=== PATIENT | female | born 1945 | race Caucasian/White ===

== ENCOUNTER 2021-06-17 13:07 | Inpatient (IN) | payer MEDICARE, MEDICAID, SELFPAY ==
[2021-06-17 13:21] VITALS: BP 166/84; PULSE 96
[2021-06-17 13:25] VITALS: BP 167/77; PULSE 75; TEMP 36.4; O2SAT 100
[2021-06-17 13:26] LABS: Glucose, Whole Blood 84 mg/dL (60-115)
[2021-06-17 13:27] VITALS: BP 167/77; PULSE 72; RESP 18; TEMP 36.4; O2SAT 100; BMI 21.3
[2021-06-17 14:36] LABS: MANUAL DIFF FLAG NO
--- NOTE | 2021-06-17 14:40 | ED_ITS ---
HPI - General Adult General Chief complaint: Altered Mental Status Stated complaint: ams Time Seen by Provider: 06/17/21 13:43 Source: patient Mode of arrival: ambulatory Limitations: no limitations History of Present Illness HPI narrative: 75-YEAR-OLD FEMALE SUPPOSEDLY FOUND WANDERING ON THE STREET AND BROUGHT BY EMS FOR EVALUATION. EMS STATES PATIENT FINGERSTICK WAS 54. UPON TRIAGE FINGERSTICK WITH 85. PATIENT ALSO DENIES DIABETES. PATIENT LIVES ALONE. PATIENT KNOWS NAME PLACE MATTRESS. 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 Patient states she was driving around in her car and was brought to a place by her friend . She states someone saw her walking on the street and then call ambulance. Patient knows her address name and date. Related Data Home Medications Medication Instructions Recorded Confirmed No Known Home Meds 06/17/21 06/17/21 Allergies Allergy/AdvReac Type Severity Reaction Status Date / Time No Known Allergies Allergy Verified 02/24/20 14:12 Review of Systems Review of Systems: CONFUSION? Yes all other systems are reviewed and are negative [facility] Past Medical History Medical History (Updated 06/17/21 @ 19:27 by MONAE Silver) High cholesterol Hypertension Hypothyroidism [facility] Surgical History History of appendectomy History of tonsillectomy Family History Family History Father No problems noted. Mother No problems noted. Social History Social History Alcohol intake: never Advance Directives: No Advance Directives Information Provided: No Physical Exam ED Vital Signs: Vital Signs - 24 hr 06/17/21 13:25 06/17/21 13:27 06/17/21 18:27 Temperature 97.6 F 97.6 F 98.0 F Pulse Rate 75 72 67 Respiratory Rate 18 16 Blood Pressure 167/77 H 167/77 H 179/86 H Pulse Oximetry 100 100 100 BMI result Body Mass Index 21.3 Const General: cooperative, healthy appearing, comfortable, no acute distress, well developed, alert and awake [facility] Head: Yes normal to inspection, Yes No palpable skull fracture present, Yes normocephalic, Yes atraumatic and No abrasion Eyes General: appearance normal, both eyes and all related structures Neck Neck: Yes normal visual inspection, Yes full ROM, Yes no lymphadenopathy, Yes no meningeal signs, Yes trachea midline, Yes supple, No anterior neck swelling and No tender Chest Chest palpation & inspection: normal inspection of the chest and normal palpation of entire chest wall Resp Effort & Inspection: normal respiratory effort and able to speak in complete sentences Auscultation: clear to auscultation bilaterally Cardio Jugular venous distension: no JVD Heart sounds: S1 normal heart sound present and S2 normal heart sound present GI Inspection: Yes normal to inspection and No abdominal wall ecchymosis Palpation (GI): Soft to palpation, not firm, nontender, no guarding and not rigid General: No CVA tenderness and Yes no CVA tenderness Back/Spine/Pelvis Back: no CVA tenderness, No CVA tenderness and No back tenderness Skin General skin exam: no rashes or lesions noted and elasticity normal Neuro Other: NEGATIVE FACIAL DROOP. NEGATIVE SLURRED SPEECH. NEGATIVE PRONATOR DRIFT. CESAOP-CT-FADV AND RAPID HAND MOVEMENT INTACT. NEGATIVE ROMBERG NORMAL GAIT. General: no meningeal signs Extrem Other: LOWER EXTREMITY NEGATIVE FOR SWELLING, PITTING EDEMA, CALF TENDERNESS General: Yes normal to inspection and Yes full ROM Psych Appearance: grossly normal, well kempt and not disheveled Course Course Course Narrative: PATIENT ALERT ORIENTED X3 PRESENT. PATIENT LIVES ALONE WITH NO FAMILY MEMBERS. WILL CHECK FOR URINE, REPEAT FINGERSTICK, ON LABS. Reevaluation(s) Reevaluation #1: Patient UA shows UTI. COVID negative. Ammonia normal. Patient has no white blood cell count but due to patient having hypoglycemic event by ER will speak to hospitalist for possible admission. Time: 16:53 Reevaluation #2: Spoke with with cousin Anuja Varma who states patient at baseline has dementia and lives alone has no family to take care of. She states patient does wonder often. She agrees patient should not be sent back by herself due to her not being able to care for herself. She states at baseline patient knows her name and address but does not know the year and president. Patient to be admitted for UTI and resolve hyperglycemia. Cousin Anuja states patient does not own a car and unlikely was with friend in her car. patient is known for wandering from elderly home. She states patient probably reliving old memories or UTI causing hallucinations. Time: 17:10 Reevaluation #3: While on D5 patient LR again became hypoglycemic while eating food with fingerstick of 63 and she ate food. D5 amp ordered. Patient given crackers and juice. Patient to be admitted for hypoglycemia. Time: 19:22 Medical Decision Making MDM Narrative Medical decision making narrative: UTI. Hyporglycemia Lab Data Result diagrams: 06/17/21 14:29 06/17/21 14:29 Labs: Lab Results 06/17/21 06/17/21 06/17/21 Range/Units 13:20 14:29 14:29 WBC 6.3 (4.8-10.8) X10*3/uL RBC 4.25 (4.20-5.50) X10*6/uL Hgb 13.0 (12.0-16.0) g/dl Hct 39.7 (37.0-47.0) % MCV 93.4 (80.0-98.0) fL MCH 30.6 (27.0-33.0) pg MCHC 32.7 (31.0-35.0) g/dl RDW 12.9 (11.0-16.0) % Plt Count 185 (160-400) X10*3/uL MPV 10.6 (9.4-12.3) fL Immature Gran % (Auto) (0.0-0.4) % Neut % (Auto) (45-73) % Lymph % (Auto) (20-40) % [place] % (Auto) (2-11) % Eos % (Auto) (0-4) % Baso % (Auto) (0-2) % Lymph # (Auto) (1.2-4.9) X10*3/uL [place] # (Auto) (0.1-1.2) X10*3/uL Eos # (Auto) (0.0-0.4) X10*3/uL Baso # (Auto) (0.0-0.2) X10*3/uL Abs Immat Gran (auto) (0.00-0.03) X10*3/uL Absolute Neuts (auto) (2.0-8.3) x10*3/uL Absolute Nucleated RBC 0.000 (0.0-0.012) X10*3/uL Nucleated RBC % (auto) 0.0 (0.0-0.2) /100WBC PT (9.9-13.0) SEC INR (0.9-1.1) APTT (24.1-38.0) SEC Sodium 142 (135-145) mmol/L Potassium 4.0 (3.3-5.1) mmol/L Chloride 107 (96-108) mmol/L Carbon Dioxide 26 (22-29) mmol/L Anion Gap 13 (12-20) BUN 23 H (9-16) mg/dL Creatinine 1.01 (0.5-1.4) mg/dL Estim Creat Clear Calc 43.6 Estimated GFR 53 POC Glucose 84 (60-115) mg/dL Random Glucose 91 (60-115) mg/dL Lactic Acid (0.5-2.0) mmol/L Calcium 9.4 (8.4-10.2) mg/dL Total Bilirubin 0.7 (0.0-1.0) mg/dL AST 21 (5-31) U/L ALT 17 (0-31) U/L Alkaline Phosphatase 79 (39-117) U/L Ammonia (13-55) umol/L Total Creatine Kinase 164 H (26-140) U/L Total Protein 6.6 (6.5-8.0) g/dL Albumin 4.0 (3.5-5.0) g/dL Urine Color Urine Appearance Urine pH (5.0-8.0) Ur Specific [place] (1.005-1.025) Urine Protein (NEG-TRACE) MG/DL Urine Glucose (UA) (NEG) MG/DL Urine Ketones (NEG) MG/DL Urine Blood (NEG) Urine Nitrite (NEG) Ur Leukocyte Esterase (NEG) Urine RBC (0) /HPF Urine WBC (0-4) /HPF Ur Squamous Epith Cells /LPF Urine Bacteria /LPF COVID-19 (RENU) (Negative) COVID-19 Clin Com 06/17/21 06/17/21 06/17/21 Range/Units 14:29 14:29 14:29 WBC 6.4 (4.8-10.8) X10*3/uL RBC 4.21 (4.20-5.50) X10*6/uL Hgb 12.9 (12.0-16.0) g/dl Hct 39.2 (37.0-47.0) % MCV 93.1 (80.0-98.0) fL MCH 30.6 (27.0-33.0) pg MCHC 32.9 (31.0-35.0) g/dl RDW 12.9 (11.0-16.0) % Plt Count 182 (160-400) X10*3/uL MPV 10.2 (9.4-12.3) fL Immature Gran % (Auto) 0.3 (0.0-0.4) % Neut % (Auto) 76.6 H (45-73) % Lymph % (Auto) 17.5 L (20-40) % [place] % (Auto) 5.0 (2-11) % Eos % (Auto) 0.3 (0-4) % Baso % (Auto) 0.3 (0-2) % Lymph # (Auto) 1.1 L (1.2-4.9) X10*3/uL [place] # (Auto) 0.3 (0.1-1.2) X10*3/uL Eos # (Auto) 0.0 (0.0-0.4) X10*3/uL Baso # (Auto) 0.0 (0.0-0.2) X10*3/uL Abs Immat Gran (auto) 0.02 (0.00-0.03) X10*3/uL Absolute Neuts (auto) 4.9 (2.0-8.3) x10*3/uL Absolute Nucleated RBC 0.000 (0.0-0.012) X10*3/uL Nucleated RBC % (auto) 0.0 (0.0-0.2) /100WBC PT 13.7 H (9.9-13.0) SEC INR 1.2 H (0.9-1.1) APTT 36.9 (24.1-38.0) SEC Sodium (135-145) mmol/L Potassium (3.3-5.1) mmol/L Chloride (96-108) mmol/L Carbon Dioxide (22-29) mmol/L Anion Gap (12-20) BUN (9-16) mg/dL Creatinine (0.5-1.4) mg/dL Estim Creat Clear Calc Estimated GFR POC Glucose (60-115) mg/dL Random Glucose (60-115) mg/dL Lactic Acid (0.5-2.0) mmol/L Calcium (8.4-10.2) mg/dL Total Bilirubin (0.0-1.0) mg/dL AST (5-31) U/L ALT (0-31) U/L Alkaline Phosphatase (39-117) U/L Ammonia (13-55) umol/L Total Creatine Kinase (26-140) U/L Total Protein (6.5-8.0) g/dL Albumin (3.5-5.0) g/dL Urine Color Urine Appearance Urine pH (5.0-8.0) Ur Specific [place] (1.005-1.025) Urine Protein (NEG-TRACE) MG/DL Urine Glucose (UA) (NEG) MG/DL Urine Ketones (NEG) MG/DL Urine Blood (NEG) Urine Nitrite (NEG) Ur Leukocyte Esterase (NEG) Urine RBC (0) /HPF Urine WBC (0-4) /HPF Ur Squamous Epith Cells /LPF Urine Bacteria /LPF COVID-19 (RENU) Negative (Negative) COVID-19 Clin Com See Note 06/17/21 06/17/21 06/17/21 Range/Units 14:29 15:12 16:06 WBC (4.8-10.8) X10*3/uL RBC (4.20-5.50) X10*6/uL Hgb (12.0-16.0) g/dl Hct (37.0-47.0) % MCV (80.0-98.0) fL MCH (27.0-33.0) pg MCHC (31.0-35.0) g/dl RDW (11.0-16.0) % Plt Count (160-400) X10*3/uL MPV (9.4-12.3) fL Immature Gran % (Auto) (0.0-0.4) % Neut % (Auto) (45-73) % Lymph % (Auto) (20-40) % [place] % (Auto) (2-11) % Eos % (Auto) (0-4) % Baso % (Auto) (0-2) % Lymph # (Auto) (1.2-4.9) X10*3/uL [place] # (Auto) (0.1-1.2) X10*3/uL Eos # (Auto) (0.0-0.4) X10*3/uL Baso # (Auto) (0.0-0.2) X10*3/uL Abs Immat Gran (auto) (0.00-0.03) X10*3/uL Absolute Neuts (auto) (2.0-8.3) x10*3/uL Absolute Nucleated RBC (0.0-0.012) X10*3/uL Nucleated RBC % (auto) (0.0-0.2) /100WBC PT (9.9-13.0) SEC INR (0.9-1.1) APTT (24.1-38.0) SEC Sodium (135-145) mmol/L Potassium (3.3-5.1) mmol/L Chloride (96-108) mmol/L Carbon Dioxide (22-29) mmol/L Anion Gap (12-20) BUN (9-16) mg/dL Creatinine (0.5-1.4) mg/dL Estim Creat Clear Calc Estimated GFR POC Glucose 65 (60-115) mg/dL Random Glucose (60-115) mg/dL Lactic Acid (0.5-2.0) mmol/L Calcium (8.4-10.2) mg/dL Total Bilirubin (0.0-1.0) mg/dL AST (5-31) U/L ALT (0-31) U/L Alkaline Phosphatase (39-117) U/L Ammonia 17 (13-55) umol/L Total Creatine Kinase (26-140) U/L Total Protein (6.5-8.0) g/dL Albumin (3.5-5.0) g/dL Urine Color YELLOW Urine Appearance HAZY Urine pH 6.0 (5.0-8.0) Ur Specific [place] 1.015 (1.005-1.025) Urine Protein NEG (NEG-TRACE) MG/DL Urine Glucose (UA) NEG (NEG) MG/DL Urine Ketones NEG (NEG) MG/DL Urine Blood TRACE (NEG) Urine Nitrite NEG (NEG) Ur Leukocyte Esterase 3+ H (NEG) Urine RBC 0-2 (0) /HPF Urine WBC 30-49 H (0-4) /HPF Ur Squamous Epith Cells 1+ /LPF Urine Bacteria 3+ /LPF COVID-19 (RENU) (Negative) COVID-19 Clin Com 06/17/21 Range/Units 17:48 WBC (4.8-10.8) X10*3/uL RBC (4.20-5.50) X10*6/uL Hgb (12.0-16.0) g/dl Hct (37.0-47.0) % MCV (80.0-98.0) fL MCH (27.0-33.0) pg MCHC (31.0-35.0) g/dl RDW (11.0-16.0) % Plt Count (160-400) X10*3/uL MPV (9.4-12.3) fL Immature Gran % (Auto) (0.0-0.4) % Neut % (Auto) (45-73) % Lymph % (Auto) (20-40) % [place] % (Auto) (2-11) % Eos % (Auto) (0-4) % Baso % (Auto) (0-2) % Lymph # (Auto) (1.2-4.9) X10*3/uL [place] # (Auto) (0.1-1.2) X10*3/uL Eos # (Auto) (0.0-0.4) X10*3/uL Baso # (Auto) (0.0-0.2) X10*3/uL Abs Immat Gran (auto) (0.00-0.03) X10*3/uL Absolute Neuts (auto) (2.0-8.3) x10*3/uL Absolute Nucleated RBC (0.0-0.012) X10*3/uL Nucleated RBC % (auto) (0.0-0.2) /100WBC PT (9.9-13.0) SEC INR (0.9-1.1) APTT (24.1-38.0) SEC Sodium (135-145) mmol/L Potassium (3.3-5.1) mmol/L Chloride (96-108) mmol/L Carbon Dioxide (22-29) mmol/L Anion Gap (12-20) BUN (9-16) mg/dL Creatinine (0.5-1.4) mg/dL Estim Creat Clear Calc Estimated GFR POC Glucose (60-115) mg/dL Random Glucose (60-115) mg/dL Lactic Acid 1.0 (0.5-2.0) mmol/L Calcium (8.4-10.2) mg/dL Total Bilirubin (0.0-1.0) mg/dL AST (5-31) U/L ALT (0-31) U/L Alkaline Phosphatase (39-117) U/L Ammonia (13-55) umol/L Total Creatine Kinase (26-140) U/L Total Protein (6.5-8.0) g/dL Albumin (3.5-5.0) g/dL Urine Color Urine Appearance Urine pH (5.0-8.0) Ur Specific [place] (1.005-1.025) Urine Protein (NEG-TRACE) MG/DL Urine Glucose (UA) (NEG) MG/DL Urine Ketones (NEG) MG/DL Urine Blood (NEG) Urine Nitrite (NEG) Ur Leukocyte Esterase (NEG) Urine RBC (0) /HPF Urine WBC (0-4) /HPF Ur Squamous Epith Cells /LPF Urine Bacteria /LPF COVID-19 (RENU) (Negative) COVID-19 Clin Com Discharge Plan Discharge Clinical Impression: Hypoglycemia, Acute UTI Patient Disposition: Admitted As Inpatient
[2021-06-17 14:47] LABS: INTERNATIONAL NORM RATIO 1.2 (0.9-1.1); Prothrombin Time 13.7 SEC (9.9-13.0)
[2021-06-17 14:48] LABS: Ammonia 17 umol/L (13-55)
[2021-06-17 14:49] LABS: Partial Thromboplastin Time 36.9 SEC (24.1-38.0)
[2021-06-17 14:53] LABS: Hematocrit 39.7 % (37.0-47.0); Mean Corpuscular HGB Conc 32.7 g/dl (31.0-35.0); Mean Corpuscular Hemoglobin 30.6 pg (27.0-33.0); Mean Corpuscular Volume 93.4 fL (80.0-98.0); Mean Platelet Volume 10.6 fL (9.4-12.3); Platelet Count 185 X10*3/uL (160-400); Red Blood Count 4.25 X10*6/uL (4.20-5.50); Red Cell Distribution Width 12.9 % (11.0-16.0); White Blood Count 6.3 X10*3/uL (4.8-10.8)
[2021-06-17 14:54] LABS: Basophils Percent Auto 0.3 % (0-2); Eosinophils Percent Auto 0.3 % (0-4); Hematocrit 39.2 % (37.0-47.0); Hemoglobin 12.9 g/dl (12.0-16.0); Imm Gran Abs Auto 0.02 X10*3/uL (0.00-0.03); Imm Gran Pct Auto 0.3 % (0.0-0.4); Lymphocytes Absolute Auto 1.1 X10*3/uL (1.2-4.9); Lymphocytes Percent Auto 17.5 % (20-40); Mean Corpuscular HGB Conc 32.9 g/dl (31.0-35.0); Mean Corpuscular Hemoglobin 30.6 pg (27.0-33.0); Mean Corpuscular Volume 93.1 fL (80.0-98.0); Mean Platelet Volume 10.2 fL (9.4-12.3); Monocytes Absolute Auto 0.3 X10*3/uL (0.1-1.2); Neutrophils Absolute Auto 4.9 x10*3/uL (2.0-8.3); Neutrophils Percent Auto 76.6 % (45-73); Platelet Count 182 X10*3/uL (160-400); Red Blood Count 4.21 X10*6/uL (4.20-5.50); Red Cell Distribution Width 12.9 % (11.0-16.0); White Blood Count 6.4 X10*3/uL (4.8-10.8)
[2021-06-17 14:57] LABS: COVID-19 Test Negative (Negative); IDNOW Serial# 55D5AD1C
[2021-06-17 15:00] LABS: Alanine Aminotransferase 17 U/L (0-31); Alkaline Phosphatase 79 U/L (39-117); Anion Gap 13 (12-20); Aspartate Amino Transferase 21 U/L (5-31); Bilirubin Total 0.7 mg/dL (0.0-1.0); Blood Urea Nitrogen 23 mg/dL (9-16); Calcium 9.4 mg/dL (8.4-10.2); Carbon Dioxide 26 mmol/L (22-29); Chloride 107 mmol/L (96-108); Creatinine Clr Calc Pharmacy 43.6; Estimated Glomerular Filt Rate 53; Glucose Random 91 mg/dL (60-115); Sodium 142 mmol/L (135-145); Total Protein 6.6 g/dL (6.5-8.0)
[2021-06-17 15:16] LABS: Glucose, Whole Blood 65 mg/dL (60-115)
[2021-06-17 16:12] LABS: Appearance Urine HAZY; Color Urine YELLOW; Glucose Urine UA NEG (NEG); Leukocyte Esterase Urine 3+ (NEG); Nitrite Urine NEG (NEG); Specific Gravity - Urine 1.015 (1.005-1.025); UACC Culture Trigger YES; Urine Blood TRACE (NEG); Urine Ketones NEG (NEG); Urine Protein NEG (NEG-TRACE)
[2021-06-17 16:20] LABS: Bacteria Urine 3+ /LPF; Squamous Epithelial Cell Urine 1+ /LPF
[2021-06-17 16:21] LABS: WBC Urine 30-49 /HPF (0-4)
[2021-06-17 16:22] LABS: RBC Urine 0-2 /HPF (0)
[2021-06-17] MEDS: Dextrose 5 % and Lactated Ring 1,000 ML 125 ML IVCONT (16:28)
[2021-06-17] MEDS: cefTRIAXone sodium 1 GM in 0.9 % Sodium Chloride 50 ML IV (17:59)
[2021-06-17 18:27] VITALS: BP 179/86; PULSE 67; RESP 16; TEMP 36.7; O2SAT 100
--- NOTE | 2021-06-17 19:05 | PC.NURSE ---
Took report from kaley to assume care of Pt. Pt resting, watching tv, on cafeteria helper, call light in reach, this RN continues to monitor
[2021-06-17] MEDS: Dextrose 50 % 25 GM/50 ML SYRINGE IVPUSH (19:23)
[2021-06-17 19:25] LABS: Glucose, Whole Blood 63 mg/dL (60-115)
--- NOTE | 2021-06-17 19:31 | PHA.MEDREC ---
Pharmacy Consult ? Medication Reconciliation Pharmacy has completed the medication reconciliation. No known home meds. Daniel SalgadoD
[2021-06-17 20:05] LABS: Glucose, Whole Blood 173 mg/dL (60-115)
--- NOTE | 2021-06-17 20:05 | PC.NURSE ---
pt repeat blood sugar 179, RN Bettye horton
--- NOTE | 2021-06-17 20:58 | MHC.CM.ED ---
According to MR, pt was confused and wandering, EMS was called. From previous visit in 2019, contact information was found to be Anuja Varma, cousin, ([phone]). According to Anuja, the patient has dementia and they have been estranged for the past year, as she tried to help her with Meals on Wheels and the patient refused any help. Anuja's brother took the patients care from her for safety. Per Anuja, the patient never or had children and she and her brother are the only relatives left. She states she cannot take her into her home. Anuja tells CM that the patient used to see Dr. Noguera, but she doesn't think she has a doctor now. Anuja is unaware of any HCP. Anuja thinks one of the elder services may know more, but is unsure if it's [facility] or [facility]. CM will need to call agencies. Anuja is concerned that patient can not care for herself.. CM attempted to meet with patient. She is very pleasant and tries to answer questions, but she is rambling and speaking in tangents. Continues to tell CM that they want her out and they drove her and left her on the street . When asked who they is, patient tells CM the people from the [employer] . Pt cannot tell CM how she gets groceries, or if she eats. Cannot tell CM if she can cook food. Pt has a UTI and hypoglycemia, which may be contributing to her confusion. CM is questioning if patient has capacity. Pt is not safe to go home. Pt will be admitted. [place] text to Dr. Solorzano with above concerns and requests for CARE team and psychiatry consult. CM did not complete an IMM secondary to concerns over patient capacity. D/C plan: possible SNF for LTC. Will need transportation.
[2021-06-17 22:04] VITALS: BP 135/68; PULSE 80; RESP 16; TEMP 36.6; O2SAT 96
[2021-06-18 01:54] VITALS: BP 120/63; PULSE 66; RESP 18; TEMP 36.7; O2SAT 99
[2021-06-18 05:43] VITALS: BP 135/70; PULSE 58; RESP 16; TEMP 36.6; O2SAT 100
[2021-06-18 06:45] LABS: Glucose, Whole Blood 91 mg/dL (60-115)
[2021-06-18 08:11] VITALS: BP 144/79; PULSE 69; RESP 16; TEMP 36.6; O2SAT 99
--- NOTE | 2021-06-18 08:21 | PC.NURSE ---
pt OOB and wandering around ER reporting she is looking for her shoes. redirected back to bed. pt alert to self only. pt able to tell t/w where she is and the date as she was reading off the white board in her room. when asked if she could tell t/w where she is/the date or why she is here pt stated well, I dont know .
[2021-06-18 11:44] VITALS: BP 135/73; PULSE 66; RESP 18; TEMP 36.8; O2SAT 99
--- NOTE | 2021-06-18 12:57 | MHC.CM.PN ---
Addendum entered by Susana Ford 06/18/21 13:17: REFERRALS TO [facility] TO FOLLOW FOR POSSIBLE BED OFFER Original Note: THIS INFORMATION SERVICES MANAGER MET WITH PATIENT TO ASK ABOUT A NEIGHBOR (KHADIJAH) THAT OCCASIONALLY HELPS PATIENT WITH ADLS KHADIJAH DID NOT LEAVE A NUMBER WHEN SHE CALLED TO CHECK UP ON PATIENT. PATIENT DOES NOT RECALL WHO KHADIJAH IS AT THIS TIME. IF KHADIJAH IS TO VISIT, CASE MANAGEMENT CAN ATTEMPT A HCP IF SEEING HER HELPS THE PATIENT TO RECALL DETAILS ABOUT HER FRIENDSHIP WITH KHADIJAH
--- NOTE | 2021-06-18 13:34 | PM.EVENT ---
Event Note Date of Service: 06/18/21 Event Note: Patient's data reviewed with MONAE Power. No medical indication for admission. Active urine sediment can be empirically treated orally pending culture
[2021-06-18 13:53] LABS: Glucose, Whole Blood 71 mg/dL (60-115)
[2021-06-18 15:03] LABS: Glucose, Whole Blood 70 mg/dL (60-115)
[2021-06-18 16:04] VITALS: BP 136/67; PULSE 73; RESP 16; TEMP 36.7; O2SAT 100
[2021-06-18 19:10] LABS: Appearance Urine HAZY; Color Urine YELLOW; Glucose Urine UA NEG (NEG); Leukocyte Esterase Urine 3+ (NEG); Nitrite Urine NEG (NEG); Specific Gravity - Urine <= 1.005 (1.005-1.025); UACC Culture Trigger YES; Urine Blood TRACE (NEG); Urine Ketones NEG (NEG); Urine Protein NEG (NEG-TRACE)
[2021-06-18 19:19] LABS: Bacteria Urine 1+ /LPF; RBC Urine 0-2 /HPF (0); WBC Clumps Urine NOTED
[2021-06-18 21:00] LABS: Glucose, Whole Blood 96 mg/dL (60-115)
[2021-06-18 21:02] VITALS: BP 146/83; PULSE 69; RESP 16; O2SAT 97
[2021-06-18] MEDS: diphenhydrAMINE HCL 25 MG TABLET 50 MG PO (22:00)
[2021-06-18] MEDS: Melatonin 3 MG TABLET 6 MG PO (22:00)
[2021-06-19] MEDS: cefTRIAXone sodium 1 GM in 0.9 % Sodium Chloride 50 ML IV (01:39)
[2021-06-19 08:00] VITALS: BP 167/83; PULSE 66; RESP 16; TEMP 36.7; O2SAT 93
--- NOTE | 2021-06-19 08:06 | PC.NURSE ---
Pt assisted to eat breakfast, tolerated well. Remains confused but easily redirectable.
[2021-06-19] MEDS: cephALEXin 500 MG CAPSULE PO ×2 (08:55→20:55)
--- NOTE | 2021-06-19 11:16 | PC.NURSE ---
report taken, pt sleeping.
[2021-06-19 12:00] VITALS: BP 148/86; PULSE 66
--- NOTE | 2021-06-19 12:33 | PC.NURSE ---
pt alert and oriented to self, unsure as to why she is at the hospital, discussed pending PT eval, pt assisted to bedside commode. pt requesting food, gave pt pudding and redirected back into bed.
[2021-06-19 18:00] VITALS: BP 159/87; PULSE 70; RESP 18; O2SAT 96
--- NOTE | 2021-06-19 19:20 | PC.NURSE ---
pt alert and oriented to self, pt returned to bed - spent afternoon in recliner w magazines and crosswords. bed alarmed, pt easily redirected. vss - bp remains elevated. pt is able to walk to bathroom w 1 assist.
--- NOTE | 2021-06-19 20:56 | PC.NURSE ---
pt resting quietly, medicated per provider order.
[2021-06-19 23:45] VITALS: BP 157/78; PULSE 63; RESP 16; TEMP 36.9; O2SAT 97
--- NOTE | 2021-06-20 04:54 | PC.NURSE ---
I assumed nursing care of Llaita at 2300. Since that time she has been resting/sleeping in bed, wakes to verbal stimuli. She has remained calm, cooperative. She occasionally gets OOb on her own despite our request that shedoes not. however, an eye in the justina camera is in her room as well as a bed alarms, therefore we have been alerted each time she has gotten OOB. When she gets OOBand ambulates tot he abthroom she ambulates slowly and mildly unsteady. She requires one stand by assist. She has taken PO food and fluids without difficulty. We will continue to monitor Lalita.
[2021-06-20 05:48] VITALS: BP 143/79; PULSE 74; RESP 16; TEMP 36.8; O2SAT 97
[2021-06-20 07:30] VITALS: BP 143/79; PULSE 74; O2SAT 97
[2021-06-20] MEDS: cephALEXin 500 MG CAPSULE PO ×2 (08:37→20:02)
[2021-06-20 10:07] VITALS: BP 152/4; PULSE 78; RESP 18; O2SAT 98
--- NOTE | 2021-06-20 12:35 | MHC.CM.ED ---
Patient remains in ER. Patient is still too confused to attempt a HCP. No HCP found at [facility], [facility] or [facility]. SHIVAM Curtis ediscovery project manager aware guardianship may be needed. Continue to monitor for d/c needs.
--- NOTE | 2021-06-20 16:07 | MHC.CM.ED ---
CM attempted to meet with pt to assess mentation. Pt remains confused, despite 3 days of antibiotic tx for a UTI. ? pt baseline. Pt does not know where she is or why she is here. CM unable to carry on conversation with patient, as she was upset that CM was asking her questions about her cousin and neighbor, Elza. Pt does not remember a neighbor, and tells CM that her cousin is not in charge of her . Pt given snack and gretchen lambert. Pt sitting up in recliner with telemonitor for safety. CM spoke with Kaya CHU about above and concerns that with no HCP, the hospital may need to petition for guardianship for this patient. Requested a psych consult for capacity. CM to follow for d/c needs.
--- NOTE | 2021-06-20 16:09 | PC.NURSE ---
pt resting in chair, given gretchen lambert
--- NOTE | 2021-06-20 17:25 | PM.PSYCN ---
History of Present Illness Date of Service: 06/20/2021 Chief Complaint: ams Reason for Consult: Medication, Capacity Requesting physician: Quita Chris Discussed with referring provider: Yes Sources of Information: patient interviewed, chart reviewed and crisis/core team assessment reviewed HPI Narrative: Lalita is a 75 y.o. Female who carries a dx of dementia with behavioral disturbance. Pt presented to [facility] on 06/17/21 due to being found wandering on the street. She lives alone, does not drive. Was found to have a UTI and was put on cephalexin.? Case management is working on getting guardianship, as pt does not have healthcare proxy or family supports. Pt is not oriented to situation, i.e. believes someone picked her up in a car and left her at the hospital, thought it was housing authority. She knows her address and date. Per CM, pt?s cousin provided collateral info, i.e. pt has dementia and often wanders. She feels pt is unable to care for herself. No concerns for illicit substance use or alcohol abuse. Psych consult placed for medication and capacity. I evaluated the pt this evening and upon interview when asked why she is in the hospital she says ?I dont know, I just felt it out and didnt want to go,? then says she doesnt know why she?s here. Sleep is ?not good.? Mood is ?alright,? says ?sometimes people get a little nava, no big thing.? Pt is illogical, when asked if she knows what day it is, pt replied ?I?m studying up for some other things, didnt come through with them yet.? Past Psychiatric History: -No known past psych history Medical Evaluation Reviewed: Yes [facility] Medical History (Updated 06/22/21 @ 03:00 by Caro Macias, FUR PULLER) High cholesterol Hypertension Hypothyroidism Intertrigo Surgical History History of appendectomy History of tonsillectomy Diagnostics Vital Signs (24Hr): Vital Signs - 24 hr 06/19/21 18:00 06/19/21 23:45 06/20/21 05:48 Temperature 98.5 F 98.2 F Pulse Rate 70 63 74 Respiratory Rate 18 16 16 Blood Pressure 159/87 H 157/78 H 143/79 H Pulse Oximetry 96 97 97 06/20/21 07:30 06/20/21 10:07 Temperature Pulse Rate 74 78 Respiratory Rate 18 Blood Pressure 143/79 H 152/4 H Pulse Oximetry 97 98 BMI result Body Mass Index 21.3 Labs Results: 06/17/21 14:29 06/17/21 14:29 Labs: Laboratory Results - last 48 hr 06/18/21 06/18/21 19:04 20:54 POC Glucose 96 Urine Color YELLOW Urine Appearance HAZY Urine pH 7.0 Ur Specific Painter <= 1.005 Urine Protein NEG Urine Glucose (UA) NEG Urine Ketones NEG Urine Blood TRACE Urine Nitrite NEG Ur Leukocyte Esterase 3+ H Urine RBC 0-2 Urine WBC 76-150 H Urine WBC Clumps NOTED Ur Squamous Epith Cells NONE Urine Bacteria 1+ Mental Status Exam Mental Status Exam Narrative: A&O to person only. Petite elder, in hospital attire, sitting up. Good eye contact, inattentive. No Tics or Tremors. No abnormal involuntary movements. Calm, cooperative, but difficult to engage in meaningful conversation. Non-pressured speech, spontaneous with regular rate and rhythm, normal volume and prosody. No prolonged speech latency or dysarthria. Mood is [did not state], affect is somewhat nervous. Denies SI/SIB/HI upon inquiry. Denies A/VH or delusional thought content. Thoughts are evasive, illogical. Has memory impairment. Insight/ Judgment poor. Medications Medications Current Medications Cephalexin HCl (Cephalexin 500 Mg Capsule) 500 mg PO BID HAL Stop: 06/23/21 21:01 Last Admin: 06/20/21 08:37 Dose: 500 mg Documented by: Pharmacy Consult (Consult Rx Perform Med Rec) 1 each MISCELLANE ONCE PRN PRN Reason: Consult order Allergies Allergies Allergy/AdvReac Type Severity Reaction Status Date / Time No Known Allergies Allergy Verified 02/24/20 14:12 Assessment & Plan Assessment & Plan (1) Dementia with behavioral disturbance: Status: Acute Code(s): F03.91 - Unspecified dementia with behavioral disturbance Plan Lalita is a 75 y.o. Female who carries a dx of dementia with behavioral disturbance. Pt presented to [facility] on 06/17/21 due to being found wandering on the street. She lives alone, does not drive. Was found to have a UTI and was put on cephalexin. No family supports. Pt has dementia and has hx of wandering. She is unable to care for herself, hypoglycemic on admission. No concerns for illicit substance use or alcohol abuse. Pt lacks capacity, as she is unable to make meaningful decisions for her healthcare, as she is not oriented to situation and not capable of attaining a factual understanding of why she is in the hospital. Pt is not currently agitated and denies mood or behavioral concerns. May use seroquel 50 mg Q6H PRN for agitation or ativan 0.5 mg Q6H PRN for anxiety and poor sleep.? -Continue monitoring medically. Patient is currently medically cleared. -Consult requested for med management/ capacity -Patient cannot leave AGAINST MEDICAL ADVICE. -CM will obtain guardianship I spent minutes with the patient and/or on the patient floor today, greater than?50% of which was spent counseling/coordinating care. Patient educated on: medication risk/benefits and therapeutic strategies
--- NOTE | 2021-06-20 19:06 | PC.NURSE ---
pt eating dinner in chair independently
[2021-06-20 19:49] VITALS: BP 164/106; PULSE 78; RESP 16; TEMP 36.6; O2SAT 98
--- NOTE | 2021-06-20 20:02 | PC.NURSE ---
pt took medication whole in applesauce, no dysphagia. pt finished the rest of the applesauce as a bedtime snack. continues with tele sitter supervision
--- NOTE | 2021-06-20 20:19 | MHC.CM.ED ---
CM reviewed patient assessment with Caro Macias HEARING AID ASSEMBLY SUPERVISOR at her requests and CM concerns regarding patient's capacity to make medical decisions. Pt remains confused to when CM met with patient. Per Caro, pt does NOT have the capacity to make medical decisions. No HCP has been found. Pt will need guardianship. Kirsten Rizvi notified via [place] Text. No facilities offering a bed. CM to follow for d/c needs.
--- NOTE | 2021-06-20 20:40 | MHC.CM.ED ---
Kirsten Rizvi will begin guardianship process tomorrow. CM to follow for d/c needs. Pt appears comfortable in ED. Sitting in recliner. Eating well. Has telemonitor. CM to follow for d/c needs.
--- NOTE | 2021-06-20 23:41 | PC.NURSE ---
pt resting in bed, tele sitter continuously monitoring patient. pt given an additional blanket
[2021-06-21 07:10] LABS: Glucose, Whole Blood 95 mg/dL (60-115)
[2021-06-21] MEDS: cephALEXin 500 MG CAPSULE PO ×2 (08:44→21:36)
[2021-06-21] MEDS: OLANZapine 10 MG VIAL IM (11:26)
--- NOTE | 2021-06-21 11:30 | PC.NURSE ---
pt having increased agitation, becoming combative w staff while redirecting, trying to hit pct and this rn. provider aware, medication restraint ordered and given w/o issue. see paper documentation in chart.
--- NOTE | 2021-06-21 13:50 | MHC.CM.ED ---
Patient remains in ER. Guardianship paperwork started by Elena Pantoja. Continue to monitor for d/c needs.
[2021-06-21 16:00] VITALS: BP 158/80; PULSE 77; RESP 16; TEMP 36.8; O2SAT 97
--- NOTE | 2021-06-21 16:20 | PC.NURSE ---
PATIENT WAS ASSISTED TO BED SIDE COMMODE BY THIS PCT ,PATIENT WAS GIVEN A BED BATH ,HAIR WAS COMB PATIENT IS NOW SITTING IN CHAIR HAVING A SNACK AND COLORING A BOOK .
[2021-06-21] MEDS: LORazepam 0.5 MG TABLET PO (17:54)
--- NOTE | 2021-06-21 18:46 | PC.NURSE ---
PATIENT HAD CHICKEN PIE FOR DINNER ,PATIENT ATE 100 % OF MEALS ,DRANK 600 ML OF FLUIDS PATIENT IS IN CHAIR WATCHING TELEVISION .
[2021-06-21 21:51] VITALS: BP 152/70; PULSE 72; RESP 16; TEMP 36.6; O2SAT 99
--- NOTE | 2021-06-22 08:52 | MHC.CM.ED ---
Patient remains in ER. Guardianship paperwork has been started by Elena Pantoja. Referral broadcasted within 20 miles of patient's residence. Patient is an elopement risk. Continue to monitor for d/c needs.
--- NOTE | 2021-06-22 09:16 | PC.NURSE ---
sleeping, resp even and unlabored, skin wpd
[2021-06-22] MEDS: cephALEXin 500 MG CAPSULE PO ×2 (10:45→20:32)
[2021-06-22 10:46] VITALS: BP 182/98; PULSE 74; RESP 18; O2SAT 98
[2021-06-22] MEDS: amLODIPine Besylate 5 MG TABLET PO (13:10)
[2021-06-22 13:11] VITALS: BP 155/84; PULSE 59; RESP 18; O2SAT 97
[2021-06-22 15:12] VITALS: BP 132/70; PULSE 74; RESP 14; O2SAT 98
--- NOTE | 2021-06-22 15:13 | PC.NURSE ---
Patient awake and alert. sitting upright in bed, speaking in full, clear sentences. denies pain, offered drink and snack, patient states she is all set at this time. Per previous nurse patient was hypertensive earlier and medicated per order- BP improving as documented.
[2021-06-22 19:07] VITALS: BP 154/69; PULSE 76; RESP 14; O2SAT 100
--- NOTE | 2021-06-22 19:13 | PC.NURSE ---
Addendum entered by Sharyn Cornelius 06/23/21 07:13: report given to BERRY Brown Original Note: report received from BERRY Arana. pt is alert and oriented x2. resting in bed, eating dinner. denies any chest pain or sob. breathing equally unlabored
[2021-06-22] MEDS: LORazepam 0.5 MG TABLET PO (20:32)
[2021-06-23 06:46] VITALS: BP 162/88; PULSE 73; RESP 16; TEMP 36.2; O2SAT 94
--- NOTE | 2021-06-23 09:05 | MHC.CM.ED ---
Patient remains in ER. Guardianship paperwork is in the process of being completed by Elena Pantoja RN and Caro psych social worker. Continue to monitor for d/c needs.
[2021-06-23 09:49] VITALS: BP 137/80; PULSE 75; RESP 16; O2SAT 99
[2021-06-23] MEDS: cephALEXin 500 MG CAPSULE PO ×2 (09:50→21:12)
[2021-06-23] MEDS: amLODIPine Besylate 5 MG TABLET PO (09:50)
[2021-06-23 11:51] VITALS: BP 145/70; PULSE 83; RESP 18; O2SAT 99
--- NOTE | 2021-06-23 14:00 | PC.NURSE ---
pt resting comfortably in no apparent distress at this time
[2021-06-23 16:38] VITALS: BP 150/78; PULSE 81; RESP 19; TEMP 36.4; O2SAT 98
--- NOTE | 2021-06-23 19:00 | PC.NURSE ---
Took report from Stephanie to assume care of Pt, Pt resting watching tv, call light in reach, bed alarm on.
[2021-06-23] MEDS: LORazepam 0.5 MG TABLET PO (21:12)
[2021-06-24 01:03] VITALS: BP 120/69; PULSE 75; RESP 14; O2SAT 94
--- NOTE | 2021-06-24 08:40 | PC.NURSE ---
pt sitting up in bed eating. able to managae breakfast independently. oriented to person but not place or time. reports feeling good . am care provided by piece work checker. blanchable pink area on coccyx. will continue to reposition patient and monitor. pt requesting a miter saw . no difficulty with swallowing. moist mm.
[2021-06-24 09:01] VITALS: BP 129/62; PULSE 82; RESP 17; TEMP 36.7; O2SAT 93
--- NOTE | 2021-06-24 09:47 | PC.NURSE ---
ambulatory wi 2 person assist. steady on feet with shuffled gait. large soft BM in commode p/t ambulation. pt is calm.
[2021-06-24 09:51] VITALS: BP 139/72; PULSE 91; RESP 16; O2SAT 97
[2021-06-24] MEDS: amLODIPine Besylate 5 MG TABLET PO (10:06)
--- NOTE | 2021-06-24 10:51 | MHC.CM.ED ---
Patient remains in ER. Elena Pantoja is in the process of getting all of the guardianship paperwork together. Continue to monitor for d/c needs.
--- NOTE | 2021-06-24 13:41 | MHC.CM.PN ---
This technical report writer spoke with pt's cousin re: taking on the role of her guardian. At this time Anuja does not feel that she would be able to serve in this role. All paperwork is ready to be filed with exception of Clinician's Affidavit for potential antipsychotic medications. the Psych team is to review and make final recommendations for med management. Once complete guardianship with be filed.
--- NOTE | 2021-06-24 17:06 | PC.NURSE ---
pt has been in and out of bed frequently. now sitting in recliner. no complaints. resting.
[2021-06-24 17:25] LABS: COVID-19 Test Negative (Negative)
[2021-06-24 23:46] VITALS: BP 140/81; PULSE 75; RESP 16; TEMP 36.6; O2SAT 97
--- NOTE | 2021-06-25 01:45 | PC.NURSE ---
I assumed nursing care of Lalita at 1900. There have been no significant changes - she remains alert, resting in bed, frequently shifting between bed and bedside recliner. Occasionally she walks to the bathroom with one stand by assist.
--- NOTE | 2021-06-25 08:27 | PC.NURSE ---
Pt removed her own iv. sml skin tear left forearm cleansed and covered with tegaderm
[2021-06-25] MEDS: amLODIPine Besylate 5 MG TABLET PO (08:38)
[2021-06-25 10:53] VITALS: BP 130/71; PULSE 67; RESP 14; O2SAT 97
--- NOTE | 2021-06-25 12:02 | PC.NURSE ---
Patient is alert to self only. She is pleasant and cooperative and able to make her needs known. Patient denies any pain. Patient ambulates with stand by assistance of 1 person-gait is slow, unsteady at time. Patient denies discomfort with urination. Last BM 06/24/2021. Skin is intact.
--- NOTE | 2021-06-25 14:52 | PC.NURSE ---
PT AMBULATED AROUND THE RN STATION LOOP WITH THIS RN. MOSTLY STEADY ON FEET. NEEDED CLOSE ATTENTION DURING CHANGE IN POSITION.
[2021-06-25] MEDS: OLANZapine 10 MG VIAL IM (16:05)
--- NOTE | 2021-06-25 16:39 | PC.NURSE ---
Patient became restless, agitated, combative-patient attempted to kick staff-Zyprexa IM administered-patient remaining combative-when staff attempted to restrain patient she developed new bleeding, superficial skin tears to b/l wrists-patient attempting to lick her wrists-skin tears dressed with Telfa and rolled gauze, secured in place with tape. After her wounds dressed, patient became relaxed and sleepy-medication restrain form filled and Q 15 min monitoring initiated.
--- NOTE | 2021-06-25 17:22 | PC.NURSE ---
pT CALMER. still alert, redirectable. resting in bed. VSS.
[2021-06-25 17:23] VITALS: BP 130/76; PULSE 76; RESP 18; O2SAT 97
--- NOTE | 2021-06-25 17:35 | PC.NURSE ---
Patient is awake at present, oriented to self only, calm. Patient requested gretchen lambert-patient had about 1/2 can of diet gretchen lambert. patient reports she is tired and would like to have a nap. Will continue to monitor.
[2021-06-25 19:13] VITALS: BP 156/84; PULSE 89; RESP 16; TEMP 36.6; O2SAT 95
--- NOTE | 2021-06-25 19:14 | PC.NURSE ---
PATIENT HAD A LARGE BOWEL MOVEMENT ,SPONGE BATH GIVEN ,PATIENT AT 100% OF HER SUPPER .DRANK 360 FLUIDS .
--- NOTE | 2021-06-25 20:00 | PC.NURSE ---
Assumed care of pt Pt resting on stretcher, calm and cooperative Will continue to monitor
--- NOTE | 2021-06-25 20:15 | PC.NURSE ---
Pt continuous to try and get out of bed Pt assisted to bedside commode Will continue to monitor
[2021-06-25] MEDS: QUEtiapine Fumarate 50 MG TABLET PO (20:35)
[2021-06-26 00:43] VITALS: BP 158/89; PULSE 81; RESP 12; O2SAT 98
--- NOTE | 2021-06-26 09:03 | MHC.CM.ED ---
Patient remains in ER. Guardianship paperwork for placement has already been started. Patient will not be able to transfer to any fci facility until guardianship is in place. Referral has been broadcasted to all facilities within 25 miles of patient's residence to all facilities that have locked dementia units. Patient is an elopement risk. Continue to monitor for d/c needs.
[2021-06-26] MEDS: amLODIPine Besylate 5 MG TABLET PO (10:03)
[2021-06-26] MEDS: LORazepam 0.5 MG TABLET PO (11:55)
[2021-06-26 15:11] VITALS: BP 141/76; PULSE 80; RESP 16; TEMP 36.4; O2SAT 99
[2021-06-27] MEDS: QUEtiapine Fumarate 50 MG TABLET PO (01:26)
[2021-06-27 04:07] VITALS: BP 134/79; PULSE 78; RESP 16; TEMP 36.9; O2SAT 99
[2021-06-27 06:02] VITALS: BP 124/84; PULSE 79; RESP 18; TEMP 35.7; O2SAT 99
--- NOTE | 2021-06-27 07:15 | PC.NURSE ---
pt is currently eating breakfast
[2021-06-27] MEDS: amLODIPine Besylate 5 MG TABLET PO (10:10)
[2021-06-27 10:11] VITALS: BP 106/56; PULSE 77; RESP 16; O2SAT 98
--- NOTE | 2021-06-27 11:15 | MHC.CM.ED ---
Patient remains in ER. Trying to determine if Simon's Order will be needed for anti-psychotic medication. Patient has Seroquel PRN ordered. Has been given twice since it was ordered. Elena Pantoja aware. Continue to monitor for d/c needs.
--- NOTE | 2021-06-27 15:53 | PC.NURSE ---
patient awake/alert to her baseline, no c/o pain or discomfort, pt ate 100% of lunch, currently calm/compliant, will continue to monitor.
[2021-06-27 18:27] VITALS: BP 125/71; PULSE 84; RESP 18; TEMP 36.9; O2SAT 100
[2021-06-27 20:01] VITALS: BP 116/60; PULSE 77; RESP 18; TEMP 36.7; O2SAT 98
--- NOTE | 2021-06-27 20:02 | PC.NURSE ---
Addendum entered by Hector Cee RN 06/28/21 07:47: Patient slept through night, got up another time to go to bathroom - 1 assist to bathroom, cooperative. Original Note: Patient confused, pleasant, cooperative. 1 assist back to bed. unsteady on feet. Bed alarm put on per high fall risk policy. Telesitter at bedside as well. Vitals stable at this time.
[2021-06-28] MEDS: amLODIPine Besylate 5 MG TABLET PO (08:31)
--- NOTE | 2021-06-28 08:34 | PC.NURSE ---
Pt Alert, oriented to her baseline, slight confused at this time. Pt offers no complaints at this time, VS as charter, LCA, adb soft, non tender, +BS, no edema noted at this time. Call [facility]pton within reach, awaiting case management for bed placement. Will continue to monitor.
[2021-06-28 08:36] VITALS: BP 95/53; PULSE 80; RESP 17; TEMP 36.7; O2SAT 96
[2021-06-28 08:38] LABS: Glucose, Whole Blood 98 mg/dL (60-115)
--- NOTE | 2021-06-28 16:15 | PC.NURSE ---
this life insurance underwriter assumed care of this pt at 1430. pt awake in bed, up to use restroom with assistance. aishwarya smart and adrian given. pt sleeping at this time.
[2021-06-28 16:44] VITALS: PULSE 79; RESP 16; TEMP 36.5; O2SAT 97
--- NOTE | 2021-06-29 07:12 | PC.NURSE ---
Report received from Nigel SMART. Patient is resting on hospital stretcher. Reports comfort. Respirations regular and even. Patient questions where she is and why, explained current situation to patient and she is agreeable to plan. Calm and cooperative. Sitting upright eating breakfast. Will continue to monitor. Awaiting placement.
--- NOTE | 2021-06-29 09:19 | MHC.CM.ED ---
Patient remains in ER. Dr Patel at bedside evaluating patient. Guardianship paperwork is in the process of being completed by Elena Pantoja. Continue to monitor for d/c needs.
[2021-06-29] MEDS: amLODIPine Besylate 5 MG TABLET PO (09:57)
--- NOTE | 2021-06-29 10:00 | PC.NURSE ---
Patient remains in ER, resting on stretcher. Respirations regular and even. Skin PWD. Patient confused but calm and cooperative. no distress noted. Will continue to monitor.
--- NOTE | 2021-06-29 13:20 | PC.NURSE ---
Patient remains comfortable on hospital bed. Ambulates with one assist to bathroom. Patient reminded she is in the hospital, forgetful and somewhat confused. Reports comfort. Skin PWD. Will continue to monitor.
[2021-06-29 15:06] VITALS: BP 144/73; PULSE 78; RESP 18; O2SAT 100
--- NOTE | 2021-06-29 17:21 | P.HPHOSP_ITS ---
History of Present Illness Date of Service: 06/29/21 Chief Complaint: placement 75-year-old female admitted for placement pending guardianship Review of Systems Review of Systems: Unable to obtain secondary to dementia [facility] Medical History High cholesterol Hypertension Hypothyroidism Intertrigo Family History Father No problems noted. Mother No problems noted. Surgical History History of appendectomy History of tonsillectomy Social History Alcohol intake: never Patient Tobacco Use Status: Tobacco use Unknown Use of substances other than those prescribed or required for medical reasons: No Advance Directives: No Advance Directives Information Provided: No service: No Current occupational status: retired [employer] Allergies Allergy/AdvReac Type Severity Reaction Status Date / Time No Known Allergies Allergy Verified 02/24/20 14:12 Active Medications: Current Medications Amlodipine Besylate (Amlodipine Besylate 5 Mg Tablet) 5 mg PO DAILY [facility]; Protocol Last Admin: 06/29/21 09:57 Dose: 5 mg Documented by: Lorazepam (Lorazepam 0.5 Mg Tablet) 0.5 mg PO Q6H PRN PRN Reason: anxiety, agitation Pharmacy Consult (Consult Rx Perform Med Rec) 1 each MISCELLANE ONCE PRN PRN Reason: Consult order Home Medications Medication Instructions Recorded Confirmed Last Taken Type No Known Home Meds 06/17/21 06/17/21 Unknown History Physical Exam Vital Signs and Narrative: Vital Signs: Last Vital Signs Temp 97.7 F 06/28/21 16:44 Pulse 78 06/29/21 15:06 Resp 18 06/29/21 15:06 BP 144/73 H 06/29/21 15:06 Pulse Ox 100 06/29/21 15:06 BMI result Body Mass Index 21.3 Const: Other: Awake alert confused Resp: Other: Clear to auscultation bilaterally no rales rhonchi or wheezes Cardio: Other: No S4 positive S1-S2 no S3 murmurs rubs or gallops Extrem: Other: No edema by Results Labs CBC and Chem 7: 06/17/21 14:29 06/17/21 14:29 Assessment and Plan (1) Dementia with behavioral disturbance: Status: Acute Plan 75-year-old female admitted from emergency room for placement pending guardianship. No acute issues at this time. Quality Stroke Does the patient have a stroke diagnosis?: No VTE Prior VTE?: No VTE Risk Level:: Medical - low VTE Device Contraindication: Treatment Not Indicated VTE Drug Contraindication: Treatment Not Indicated
--- NOTE | 2021-06-29 17:37 | MHC.CM.PN ---
Addendum entered by Jeannine Egan 06/29/21 17:44: Per Caro Macias TOBACCO STEMMER MACHINE, pt has not had seroquel in a week. Pt behaviors appear to be in control. D/C PRN seroquel. Elena Pantoja aware that patient is not receiving any anti psychotic medication and guardianship will be filed without request for Simon's order. Original Note: Pt will be socially admitted pending guardianship. Awaiting bed assignment. Pleasant and cooperative. CM to follow for d/c needs.
[2021-06-29 20:04] VITALS: BP 151/84; PULSE 75; RESP 18; TEMP 36.2; O2SAT 100
[2021-06-30] VITALS: BP 154/78; PULSE 75; RESP 18; TEMP 36.4; O2SAT 99
[2021-06-30 08:00] VITALS: BP 135/87; PULSE 71; RESP 16; TEMP 36.3; O2SAT 98
[2021-06-30] MEDS: amLODIPine Besylate 5 MG TABLET PO (10:47)
--- NOTE | 2021-06-30 13:24 | P.PNIM_ITS ---
Subjective Subjective Date of Service: 06/30/21 Review of Systems Unable to obtain secondary to dementia Physical Exam Vital Signs: Vital Signs: Last Vital Signs Temp 97.4 F 06/30/21 08:00 Pulse 71 06/30/21 08:00 Resp 16 06/30/21 08:00 BP 135/87 06/30/21 08:00 Pulse Ox 98 06/30/21 08:00 BMI result Body Mass Index 21.3 Const: Other: Awake alert confused Resp: Other: Clear to auscultation bilaterally no rales rhonchi or wheezes Cardio: Other: No S4 positive S1-S2 no S3 murmurs rubs or gallops Extrem: Other: No edema by Objective Data Active Medications Acetaminophen (Acetaminophen 325 Mg Tablet) 650 mg PO Q6H PRN PRN Reason: Pain, Mild (Pain Scale 1-3) Amlodipine Besylate (Amlodipine Besylate 5 Mg Tablet) 5 mg PO DAILY [facility]; Protocol Last Admin: 06/30/21 10:47 Dose: 5 mg Documented by: THIEN Lorazepam (Lorazepam 0.5 Mg Tablet) 0.5 mg PO Q6H PRN PRN Reason: anxiety, agitation Ondansetron HCl (Ondansetron Hcl 4 Mg/2 Ml Vial) 4 mg IVPUSH Q8H PRN PRN Reason: Nausea and Vomiting Pharmacy Consult (Consult Rx Perform Med Rec) 1 each MISCELLANE ONCE PRN PRN Reason: Consult order Labs CBC & Chem 7: 06/17/21 14:29 06/17/21 14:29 Assessment and Plan (1) Dementia with behavioral disturbance: Status: Acute Plan 75-year-old [facility] No acute issues at this time. Quality Stroke Does the patient have a stroke diagnosis?: No VTE Prior VTE?: No VTE Risk Level:: Medical - low VTE Device Contraindication: Treatment Not Indicated VTE Drug Contraindication: Treatment Not Indicated
[2021-06-30 14:02] VITALS: BMI 21.3
--- NOTE | 2021-06-30 14:11 | MHC.CLN ---
RE: CONSULT PT WITH INCREASED NUTRITION RISK R/T PRESSURE INJURY DIET RX: REGULAR-APPROPRIATE RECOMMEND ADDING ENSURE BID TO INCREASE KCALS AND PROMOTE WOUND HEALING SUPP PROVIDES 700KCALS, 40G PROTEIN MONITOR PO INTAKE CLOSELY SEE ALSO FULL CLINICAL NUTRITION ASSESSMENT
[2021-06-30 16:00] VITALS: BP 126/74; PULSE 72; RESP 18; TEMP 35.8; O2SAT 98
[2021-06-30 16:33] LABS: Glucose, Whole Blood 87 mg/dL (60-115)
[2021-06-30 19:53] VITALS: BP 136/71; PULSE 73; RESP 18; TEMP 37; O2SAT 97
[2021-06-30 20:12] LABS: Glucose, Whole Blood 117 mg/dL (60-115)
--- NOTE | 2021-06-30 22:38 | P.CONWO_ITS ---
History of Present Illness Data of Consult Service Date: 06/30/21 Requesting physician: Froylan Solorzano Primary Care Provider: Caesar Mo MD HPI Reason for consult: buttock wound pt admitted for palcement. noted to have small wound on right buttock [facility] Medical History High cholesterol Hypertension Hypothyroidism Intertrigo Family History Father No problems noted. Mother No problems noted. Surgical History History of appendectomy History of tonsillectomy Social History Household Members: Unknown / Unable to assess Unable to assess alcohol history related to: Unknown Alcohol intake: never Patient Tobacco Use Status: Tobacco use Unknown Use of substances other than those prescribed or required for medical reasons: Unknown Currently Displaying Signs/Symptoms of Drug Intoxication Withdrawal: No Advance Directives: No Advance Directives Information Provided: No Do you have thoughts of harming others: None Do you have a plan to hurt others: No Plan Recently lost weight without trying: Unsure Nutrition Risks: No Nutritional Risk Patient : No : No Poor oral hygiene: No service: No Current occupational status: retired [employer] Allergies Allergy/AdvReac Type Severity Reaction Status Date / Time No Known Allergies Allergy Verified 02/24/20 14:12 Active Medications: Current Medications Acetaminophen (Acetaminophen 325 Mg Tablet) 650 mg PO Q6H PRN PRN Reason: Pain, Mild (Pain Scale 1-3) Amlodipine Besylate (Amlodipine Besylate 5 Mg Tablet) 5 mg PO DAILY [facility]; Protocol Last Admin: 06/30/21 10:47 Dose: 5 mg Documented by: Lorazepam (Lorazepam 0.5 Mg Tablet) 0.5 mg PO Q6H PRN PRN Reason: anxiety, agitation Ondansetron HCl (Ondansetron Hcl 4 Mg/2 Ml Vial) 4 mg IVPUSH Q8H PRN PRN Reason: Nausea and Vomiting Pharmacy Consult (Consult Rx Perform Med Rec) 1 each MISCELLANE ONCE PRN PRN Reason: Consult order Home Medications Medication Instructions Recorded Confirmed Last Taken Type No Known Home Meds 06/17/21 06/17/21 Unknown History Physical Exam Vital Signs and Narrative: Vital Signs: Last Vital Signs Temp 98.6 F 06/30/21 19:53 Pulse 73 06/30/21 19:53 Resp 18 06/30/21 19:53 BP 136/71 06/30/21 19:53 Pulse Ox 97 06/30/21 19:53 BMI result Body Mass Index 21.3 Skin: Other: right buttock has about .7x.8 cm skin breakdown area to dermal area - not into fat surrounding tissue and skin looks great pt moves around in bed well Results Labs CBC and Chem 7: 06/17/21 14:29 06/17/21 14:29 Labs: Laboratory Results - last 24 hr 06/30/21 06/30/21 16:17 20:00 POC Glucose 87 117 H Assessment and Plan (1) Stage II pressure ulcer of right buttock: Status: Acute Plan pt is a 75 year old female with probable shear injury on right buttock - very small area and clean and today even looks like epithelial tissue overlying ins ome areas. pt seems to move around fine no topical dressing needed and encourage her to reposition and shift as much as she will remember
[2021-06-30 23:32] VITALS: BP 131/74; PULSE 70; RESP 15; TEMP 36.2; O2SAT 97
[2021-07-01 07:43] VITALS: BP 138/79; PULSE 71; RESP 18; TEMP 36.2; O2SAT 100
[2021-07-01] MEDS: amLODIPine Besylate 5 MG TABLET PO (08:43)
--- NOTE | 2021-07-01 11:55 | P.PNIM_ITS ---
Subjective Subjective Date of Service: 07/01/21 Interval History: seen and examined this morning follow up for guardianship resting in bed comfortably, no acute distress Denies any pain. Overall poor historian due to underlying dementia. Pleasantly confused Review of Systems Review of Systems: Yes Unobtainable due to mental status (dementia ) Neurologic Neurologic: Reports confusion Psychiatric Psychiatric: Reports confusion Physical Exam Vital Signs: Vital Signs: Last Vital Signs Temp 97.1 F 07/01/21 07:43 Pulse 71 07/01/21 07:43 Resp 18 07/01/21 07:43 BP 138/79 07/01/21 07:43 Pulse Ox 100 07/01/21 07:43 BMI result Body Mass Index 21.3 Const: General: cooperative, comfortable, no acute distress, alert, awake and confusion Nutritional Appearance: thin Orientation/consciousness: c onfusion Resp: Effort & Inspection: normal respiratory effort and able to speak in complete sentences Cardio: Rate: regular rate Heart sounds: S1 normal heart sound present and S2 normal heart sound present GI: Palpation (GI): Soft to palpation and nontender Skin: Other: multiple skin tears b/l arms Neuro: General: confusion Extrem: General: Yes no pedal edema Objective Data Active Medications Acetaminophen (Acetaminophen 325 Mg Tablet) 650 mg PO Q6H PRN PRN Reason: Pain, Mild (Pain Scale 1-3) Amlodipine Besylate (Amlodipine Besylate 5 Mg Tablet) 5 mg PO DAILY [facility]; Protocol Last Admin: 07/01/21 08:43 Dose: 5 mg Documented by: MANUELITO Lorazepam (Lorazepam 0.5 Mg Tablet) 0.5 mg PO Q6H PRN PRN Reason: anxiety, agitation Ondansetron HCl (Ondansetron Hcl 4 Mg/2 Ml Vial) 4 mg IVPUSH Q8H PRN PRN Reason: Nausea and Vomiting Pharmacy Consult (Consult Rx Perform Med Rec) 1 each MISCELLANE ONCE PRN PRN Reason: Consult order Labs CBC & Chem 7: 06/17/21 14:29 06/17/21 14:29 Labs: Laboratory Results - last 24 hr 06/30/21 06/30/21 16:17 20:00 POC Glucose 87 117 H Assessment and Plan (1) Dementia with behavioral disturbance: Status: Acute (2) Stage II pressure ulcer of right buttock: Status: Acute Plan This is a 75 year old female with history of HLD, HTN, hypothyroidism, dementia who was brought to the ED by EMS 06/17 after being found wandering on the street. She was seen by psych and deemed not to have capacity to make medical decisions and was admitted to the hospital on 06/29 with plans to pursue guardianship Dementia no behavioral issues at this time does not have capacity to make medical decisions pending guardianship HTN per outpatient notes, patient was previously on atenolol. No fill history, patient likely not taking was started on Norvasc during this admission, BP under adequate control Continue Norvasc hypothyroidism previously on synthroid 50 mcg, although likely not taking will check thyroid function resume previous dose of synthroid for now Small Stage II pressure ulcer of right buttock seen by wound care - likely shear injury seen by nutrition, supplements added pt able to reposition herself continue local wound care will check basic labs in am code status - presumed to be full code Attending physician-Dr. Chapman requires ongoing hospitalization to obtain guardianship and safe disposition Quality Stroke Does the patient have a stroke diagnosis?: No VTE Prior VTE?: No VTE Risk Level:: Medical - low VTE Device Contraindication: Treatment Not Indicated VTE Drug Contraindication: Treatment Not Indicated
--- NOTE | 2021-07-01 13:17 | MHC.CLN ---
F/U DIET=REGULAR WITH ENSURE BID. APPEARS TO BE EATING WELL. STAGE II PRESSURE INJURY TO RIGHT BUTTOCK NOTED. SUPPLEMENT PROVIDES ADDITIONAL 700 KCAL AND 40 G PROTEIN TO PROMOTE WOUND HEALING. CONTINUE CURRENT DIET AND SUPPLEMENT ORDERS.
[2021-07-01 15:24] VITALS: BP 141/57; PULSE 77; RESP 18; TEMP 36.9; O2SAT 100
--- NOTE | 2021-07-01 15:57 | MHC.CM.PN ---
EMR REVIEWED, PT AWAITING GUARDIANSHIP FOR PLACEMENT, [facility] ARE FOLLOWING PENDING GUARDIANSHIP. CM WILL CONT TO FOLLOW D/C NEEDS.
[2021-07-01 19:08] VITALS: BP 119/87; PULSE 84; RESP 18; TEMP 37.1; O2SAT 98
[2021-07-01 23:44] VITALS: BP 136/76; PULSE 70; RESP 15; TEMP 36; O2SAT 97
[2021-07-02] MEDS: Levothyroxine Sodium 50 MCG TABLET PO (04:50)
[2021-07-02 06:33] LABS: Hemoglobin 12.6 g/dl (12.0-16.0); Mean Corpuscular HGB Conc 34.1 g/dl (31.0-35.0); Mean Corpuscular Hemoglobin 31.1 pg (27.0-33.0); Mean Corpuscular Volume 91.4 fL (80.0-98.0); Mean Platelet Volume 10.4 fL (9.4-12.3); Platelet Count 233 X10*3/uL (160-400); Red Blood Count 4.05 X10*6/uL (4.20-5.50); Red Cell Distribution Width 12.2 % (11.0-16.0); White Blood Count 6.4 X10*3/uL (4.8-10.8)
[2021-07-02 06:56] LABS: Anion Gap 10 (12-20); Blood Urea Nitrogen 35 mg/dL (9-16); Calcium 8.7 mg/dL (8.4-10.2); Carbon Dioxide 25 mmol/L (22-29); Chloride 106 mmol/L (96-108); Creatinine Clr Calc Pharmacy 42.3; Estimated Glomerular Filt Rate 51; Glucose Random 88 mg/dL (60-115); Potassium 4.2 mmol/L (3.3-5.1); Sodium 137 mmol/L (135-145)
[2021-07-02 07:18] LABS: TSH reflex Free T4 2.42 uIU/mL (0.32-4.0)
[2021-07-02 08:00] VITALS: BP 159/88; PULSE 69; RESP 20; TEMP 36.5; O2SAT 100
[2021-07-02] MEDS: amLODIPine Besylate 5 MG TABLET PO (10:55)
--- NOTE | 2021-07-02 11:36 | HO.PM.IMPN ---
Subjective Subjective Date of Service: 07/02/21 Interval History: seen and examined this morning follow up for guardianship observed resting in bed comfortably this morning offers no complaints Review of Systems Review of Systems: Yes all other systems are reviewed and are negative Constitutional Constitutional: Denies chills and Denies fever(s) Cardiovascular Cardiovascular: Denies chest pain Respiratory Respiratory: Denies cough Gastrointestinal Gastrointestinal: Denies abdominal pain Neurologic Neurologic: Reports confusion Psychiatric Psychiatric: Reports confusion Physical Exam Vital Signs: Vital Signs: Last Vital Signs Temp 97.7 F 07/02/21 08:00 Pulse 69 07/02/21 08:00 Resp 20 07/02/21 08:00 BP 159/88 H 07/02/21 08:00 Pulse Ox 100 07/02/21 08:00 BMI result Body Mass Index 21.3 Const: General: cooperative, comfortable, no acute distress, alert, awake and confusion Nutritional Appearance: thin Orientation/consciousness: confusion Resp: Effort & Inspection: normal respiratory effort and able to speak in complete sentences Cardio: Rate: regular rate Heart sounds: S1 normal heart sound present and S2 normal heart sound present GI: Palpation (GI): Soft to palpation and nontender Skin: Other: multiple skin tears b/l arms Neuro: General: confusion Extrem: General: Yes no pedal edema Objective Data Active Medications Acetaminophen (Acetaminophen 325 Mg Tablet) 650 mg PO Q6H PRN PRN Reason: Pain, Mild (Pain Scale 1-3) Amlodipine Besylate (Amlodipine Besylate 5 Mg Tablet) 5 mg PO DAILY [facility]; Protocol Last Admin: 07/02/21 10:55 Dose: 5 mg Documented by: THIEN Levothyroxine Sodium (Levothyroxine Sodium 50 Mcg Tablet) 50 mcg PO DAILY@0600 [facility] Last Admin: 07/02/21 04:50 Dose: 50 mcg Documented by: JOSEPH Lorazepam (Lorazepam 0.5 Mg Tablet) 0.5 mg PO Q6H PRN PRN Reason: anxiety, agitation Ondansetron HCl (Ondansetron Hcl 4 Mg/2 Ml Vial) 4 mg IVPUSH Q8H PRN PRN Reason: Nausea and Vomiting Pharmacy Consult (Consult Rx Perform Med Rec) 1 each MISCELLANE ONCE PRN PRN Reason: Consult order Labs CBC & Chem 7: 07/02/21 05:46 05/21/22 05:46 Labs: Laboratory Results - last 24 hr 07/02/21 07/02/21 05:46 05:46 MCV 91.4 MCH 31.1 MCHC 34.1 RDW 12.2 Plt Count 233 D MPV 10.4 Absolute Nucleated RBC 0.000 Nucleated RBC % (auto) 0.0 Anion Gap 10 L Estim Creat Clear Calc 42.3 Estimated GFR 51 Random Glucose 88 Calcium 8.7 D TSH 2.42 Assessment and Plan (1) Dementia with behavioral disturbance: Status: Acute Plan This is a 75 year old female with history of HLD, HTN, hypothyroidism, dementia who was brought to the ED by EMS 06/17 after being found wandering on the street. She was seen by psych and deemed not to have capacity to make medical decisions and was admitted to the hospital on 06/29 with plans to pursue guardianship Dementia no behavioral issues at this time does not have capacity to make medical decisions pending guardianship HTN per outpatient notes, patient was previously on atenolol. No fill history, patient likely not taking was started on Norvasc during this admission, BP under adequate control Continue Norvasc hypothyroidism previously on synthroid 50 mcg, although likely not taking TSH 2.42 will resume previous dose of synthroid for now will need outpatient follow up Small Stage II pressure ulcer of right buttock seen by wound care - likely shear injury seen by nutrition, supplements added pt able to reposition herself continue local wound care code status - presumed to be full code Attending physician-Dr. Solorzano requires ongoing hospitalization to obtain guardianship and safe disposition Quality Stroke Does the patient have a stroke diagnosis?: No VTE Prior VTE?: No VTE Risk Level:: Medical - low VTE Device Contraindication: Treatment Not Indicated VTE Drug Contraindication: Treatment Not Indicated
[2021-07-02] MEDS: Bacitracin Oint 14 GM TUBE 1 APPL TOPICAL (14:40)
[2021-07-02 15:56] VITALS: BP 125/66; PULSE 68; RESP 18; TEMP 37.1; O2SAT 97
[2021-07-03 00:19] VITALS: BP 133/61; PULSE 80; RESP 18; TEMP 36.7; O2SAT 100
[2021-07-03] MEDS: Levothyroxine Sodium 50 MCG TABLET PO (05:56)
[2021-07-03] MEDS: amLODIPine Besylate 5 MG TABLET PO (09:18)
--- NOTE | 2021-07-03 12:25 | P.PNIM_ITS ---
Subjective Subjective Date of Service: 07/03/21 Interval History: seen and examined this morning follow up for guardianship resting in bed comfortably, pleasantly confused no overnight events Review of Systems Review of Systems: Yes all other systems are reviewed and are negative Constitutional Constitutional: Denies chills and Denies fever(s) Cardiovascular Cardiovascular: Denies chest pain and Denies dyspnea Respiratory Respiratory: Denies cough and Denies dyspnea Gastrointestinal Gastrointestinal: Denies abdominal pain, Denies nausea and Denies vomiting Neurologic Neurologic: Reports confusion Psychiatric Psychiatric: Reports confusion Physical Exam Vital Signs: Vital Signs: Last Vital Signs Temp 98.0 F 07/03/21 00:19 Pulse 80 07/03/21 00:19 Resp 18 07/03/21 00:19 BP 133/61 07/03/21 00:19 Pulse Ox 100 07/03/21 00:19 BMI result Body Mass Index 21.3 Const: General: cooperative, comfortable, no acute distress, alert, awake and confusion Nutritional Appearance: thin Orientation/consciousness: confusion Resp: Effort & Inspection: normal respiratory effort and able to speak in complete sentences Cardio: Rate: regular rate Heart sounds: S1 normal heart sound present and S2 normal heart sound present GI: Palpation (GI): Soft to palpation and nontender Skin: Other: multiple skin tears b/l arms Neuro: General: confusion Extrem: General: Yes no pedal edema Objective Data Active Medications Acetaminophen (Acetaminophen 325 Mg Tablet) 650 mg PO Q6H PRN PRN Reason: Pain, Mild (Pain Scale 1-3) Amlodipine Besylate (Amlodipine Besylate 5 Mg Tablet) 5 mg PO DAILY [facility]; Protocol Last Admin: 07/03/21 09:18 Dose: 5 mg Documented by: JORGE Levothyroxine Sodium (Levothyroxine Sodium 50 Mcg Tablet) 50 mcg PO DAILY@0600 [facility] Last Admin: 07/03/21 05:56 Dose: 50 mcg Documented by: JOSEPH Ondansetron HCl (Ondansetron Hcl 4 Mg/2 Ml Vial) 4 mg IVPUSH Q8H PRN PRN Reason: Nausea and Vomiting Pharmacy Consult (Consult Rx Perform Med Rec) 1 each MISCELLANE ONCE PRN PRN Reason: Consult order Labs CBC & Chem 7: 07/02/21 05:46 07/02/21 05:46 Assessment and Plan (1) Dementia with behavioral disturbance: Status: Acute Plan This is a 75 year old female with history of HLD, HTN, hypothyroidism, dementia who was brought to the ED by EMS 06/17 after being found wandering on the street. She was seen by psych and deemed not to have capacity to make medical decisions and was admitted to the hospital on 06/29 with plans to pursue guardianship Dementia no behavioral issues at this time does not have capacity to make medical decisions pending guardianship HTN per outpatient notes, patient was previously on atenolol. No fill history, patient likely not taking was started on Norvasc during this admission, BP under adequate control Continue Norvasc hypothyroidism previously on synthroid 50 mcg, although likely not taking TSH 2.42 will resume previous dose of synthroid for now will need outpatient follow up Small Stage II pressure ulcer of right buttock seen by wound care - likely shear injury seen by nutrition, supplements added pt able to reposition herself continue local wound care dvt ppx - mechanical devices code status - full code Attending physician-Dr. Solorzano requires ongoing hospitalization to obtain guardianship and safe disposition Quality Stroke Does the patient have a stroke diagnosis?: No VTE Prior VTE?: No VTE Risk Level:: Medical - low VTE Device Contraindication: Treatment Not Indicated VTE Drug Contraindication: Treatment Not Indicated
[2021-07-03 15:05] VITALS: BP 112/55; PULSE 81; RESP 18; TEMP 36.4; O2SAT 100
[2021-07-03 19:37] VITALS: BP 119/65; PULSE 77; RESP 18; TEMP 36.6; O2SAT 100
[2021-07-04] VITALS: BP 114/56; PULSE 74; RESP 18; TEMP 36.3; O2SAT 97
[2021-07-04] MEDS: Levothyroxine Sodium 50 MCG TABLET PO (05:43)
[2021-07-04 07:59] VITALS: BP 123/69; PULSE 72; RESP 18; TEMP 36.7; O2SAT 93
--- NOTE | 2021-07-04 09:11 | HO.PM.IMPN ---
Subjective Subjective Date of Service: 07/04/21 Review of Systems follow up for guardianship resting in bed comfortably, pleasantly confused no overnight events Physical Exam Vital Signs: Vital Signs: Last Vital Signs Temp 98.0 F 07/04/21 07:59 Pulse 72 07/04/21 07:59 Resp 18 07/04/21 07:59 BP 123/69 07/04/21 07:59 Pulse Ox 93 07/04/21 07:59 BMI result Body Mass Index 21.3 Appearing in no acute distress lung sounds are clear to auscultation heart regular rate rhythm, clear S1, S2 positive bowel sounds, abdomen is soft, nontender neuro patient is alert, pleasantly confused Objective Data Active Medications Acetaminophen (Acetaminophen 325 Mg Tablet) 650 mg PO Q6H PRN PRN Reason: Pain, Mild (Pain Scale 1-3) Amlodipine Besylate (Amlodipine Besylate 5 Mg Tablet) 5 mg PO DAILY [facility]; Protocol Last Admin: 07/03/21 09:18 Dose: 5 mg Documented by: JORGE Levothyroxine Sodium (Levothyroxine Sodium 50 Mcg Tablet) 50 mcg PO DAILY@0600 [facility] Last Admin: 07/04/21 05:43 Dose: 50 mcg Documented by: GABY Ondansetron HCl (Ondansetron Hcl 4 Mg/2 Ml Vial) 4 mg IVPUSH Q8H PRN PRN Reason: Nausea and Vomiting Pharmacy Consult (Consult Rx Perform Med Rec) 1 each MISCELLANE ONCE PRN PRN Reason: Consult order Labs CBC & Chem 7: 07/02/21 05:46 07/02/21 05:46 Assessment and Plan (1) Dementia with behavioral disturbance: Status: Acute Plan This is a 75 year old female with history of HLD, HTN, hypothyroidism, dementia who was brought to the ED by EMS 06/17 after being found wandering on the street. She was seen by psych and deemed not to have capacity to make medical decisions and was admitted to the hospital on 06/29 with plans to pursue guardianship Dementia, chronic no behavioral issues at this time does not have capacity to make medical decisions as per psych evaluation pending guardianship HTN per outpatient notes, patient was previously on atenolol. No fill history, patient likely not taking was started on Norvasc during this admission, BP under adequate control Continue Norvasc hypothyroidism previously on synthroid 50 mcg, although likely not taking TSH 2.42 will resume previous dose of synthroid for now will need outpatient follow up Small Stage II pressure ulcer of right buttock seen by wound care - likely shear injury seen by nutrition, supplements added pt able to reposition herself continue local wound care dvt ppx - mechanical devices code status - full code Attending physician Dr. Ortega requires ongoing hospitalization to obtain guardianship and safe disposition Quality Stroke Does the patient have a stroke diagnosis?: No VTE Prior VTE?: No VTE Risk Level:: Medical - low VTE Device Contraindication: Treatment Not Indicated VTE Drug Contraindication: Treatment Not Indicated
[2021-07-04] MEDS: amLODIPine Besylate 5 MG TABLET PO (09:35)
--- NOTE | 2021-07-04 12:06 | MHC.CLN ---
F/U DIET=REGULAR WITH ENSURE BID. APPEARS TO BE EATING WELL. WOUND TO RIGHT BUTTOCK NOW STAGE I ( OF 07/02). SUPPLEMENT PROVIDES ADDITIONAL 700 KCAL AND 40 G PROTEIN. CONTINUE CURRENT DIET AND SUPPLEMENT ORDERS.
--- NOTE | 2021-07-04 14:52 | MHC.CM.PN ---
EMR REVIEWED, PT HAS HAD NO BEHAVIORAL ISSUES, REMAINS MEDICALLY STABLE, PER CM DIRECTOR [facility] ARE STILL TRYING TO FIND SOMEONE AGREEABLE TO BE THE GUARDIAN/CONSERVATOR FOR PT, ONCE GUARDIAN IS FOUND [facility] WILL FILE FOR GUARDIANSHIP.
[2021-07-04 15:15] VITALS: BP 163/62; PULSE 76; RESP 18; TEMP 36.9; O2SAT 96
[2021-07-04 19:36] VITALS: BP 133/71; PULSE 81; RESP 18; TEMP 36.4; O2SAT 96
[2021-07-04 23:24] VITALS: BP 129/70; PULSE 74; RESP 15; TEMP 36.6; O2SAT 98
[2021-07-05] MEDS: Levothyroxine Sodium 50 MCG TABLET PO (05:43)
[2021-07-05 07:36] VITALS: BP 119/62; PULSE 68; RESP 18; TEMP 36.6; O2SAT 99
[2021-07-05] MEDS: amLODIPine Besylate 5 MG TABLET PO (08:32)
--- NOTE | 2021-07-05 08:35 | P.PNIM_ITS ---
Subjective Subjective Date of Service: 07/05/21 Review of Systems follow up for guardianship resting in bed comfortably, pleasantly confused no overnight events Physical Exam Vital Signs: Vital Signs: Last Vital Signs Temp 97.8 F 07/05/21 07:36 Pulse 68 07/05/21 07:36 Resp 18 07/05/21 07:36 BP 119/62 07/05/21 07:36 Pulse Ox 99 07/05/21 07:36 BMI result Body Mass Index 21.3 Appearing in no acute distress lung sounds are clear to auscultation heart regular rate rhythm, clear S1, S2 positive bowel sounds, abdomen is soft, nontender neuro patient is sleeping Objective Data Active Medications Acetaminophen (Acetaminophen 325 Mg Tablet) 650 mg PO Q6H PRN PRN Reason: Pain, Mild (Pain Scale 1-3) Amlodipine Besylate (Amlodipine Besylate 5 Mg Tablet) 5 mg PO DAILY [facility]; Protocol Last Admin: 07/05/21 08:32 Dose: 5 mg Documented by: TERESA Levothyroxine Sodium (Levothyroxine Sodium 50 Mcg Tablet) 50 mcg PO DAILY@0600 [facility] Last Admin: 07/05/21 05:43 Dose: 50 mcg Documented by: JANAERISRichard Ondansetron HCl (Ondansetron Hcl 4 Mg/2 Ml Vial) 4 mg IVPUSH Q8H PRN PRN Reason: Nausea and Vomiting Pharmacy Consult (Consult Rx Perform Med Rec) 1 each MISCELLANE ONCE PRN PRN Reason: Consult order Labs CBC & Chem 7: 07/02/21 05:46 07/02/21 05:46 Assessment and Plan (1) Dementia with behavioral disturbance: Status: Acute Plan This is a 75 year old female with history of HLD, HTN, hypothyroidism, dementia who was brought to the ED by EMS 06/17 after being found wandering on the street. She was seen by psych and deemed not to have capacity to make medical decisions and was admitted to the hospital on 06/29 with plans to pursue guardianship NO overnight events Dementia, chronic no behavioral issues at this time does not have capacity to make medical decisions as per psych evaluation pending guardianship HTN per outpatient notes, patient was previously on atenolol. No fill history, patient likely not taking was started on Norvasc during this admission, BP under adequate control Continue Norvasc hypothyroidism previously on synthroid 50 mcg, although likely not taking TSH 2.42 will resume previous dose of synthroid for now will need outpatient follow up Small Stage II pressure ulcer of right buttock seen by wound care - likely shear injury seen by nutrition, supplements added pt able to reposition herself continue local wound care dvt ppx - mechanical devices code status - full code Attending physician Dr. Ortega requires ongoing hospitalization to obtain guardianship and safe disposition Quality Stroke Does the patient have a stroke diagnosis?: No VTE Prior VTE?: No VTE Risk Level:: Medical - low VTE Device Contraindication: Treatment Not Indicated VTE Drug Contraindication: Treatment Not Indicated
[2021-07-05 15:30] VITALS: BP 100/52; PULSE 81; RESP 18; TEMP 36.3; O2SAT 99
[2021-07-05 23:25] VITALS: BP 132/75; PULSE 71; RESP 18; TEMP 37; O2SAT 98
[2021-07-06] MEDS: Levothyroxine Sodium 50 MCG TABLET PO (06:16)
[2021-07-06 08:00] VITALS: BP 132/71; PULSE 64; RESP 18; TEMP 36.6; O2SAT 99
--- NOTE | 2021-07-06 08:35 | P.PNIM_ITS ---
Subjective Subjective Date of Service: 07/06/21 Interval History: seen and examined this morning, follow-up for guardianship, patient pleasantly confused,resting in bed offers no acute complaints of fever, chills, no chest pain, or shortness of breath. 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 no chest pain, no palpitation GI no nausea, no vomiting, no abdominal pain Review of Systems: Yes all other systems are reviewed and are negative Physical Exam Vital Signs: Vital Signs: Last Vital Signs Temp 97.9 F 07/06/21 08:00 Pulse 64 07/06/21 08:00 Resp 18 07/06/21 08:00 BP 132/71 07/06/21 08:00 Pulse Ox 99 07/06/21 08:00 BMI result Body Mass Index 21.3 Const: Other: General awake alert , no distress Neck no JVD Cardio S1 and S-2 normal heart sounds regular rate rhythm abdomen soft nontender extremities no edema Objective Data Active Medications Acetaminophen (Acetaminophen 325 Mg Tablet) 650 mg PO Q6H PRN PRN Reason: Pain, Mild (Pain Scale 1-3) Amlodipine Besylate (Amlodipine Besylate 5 Mg Tablet) 5 mg PO DAILY [facility]; Protocol Last Admin: 07/05/21 08:32 Dose: 5 mg Documented by: TERESA Levothyroxine Sodium (Levothyroxine Sodium 50 Mcg Tablet) 50 mcg PO DAILY@0600 [facility] Last Admin: 07/06/21 06:16 Dose: 50 mcg Documented by: JOSEPH Ondansetron HCl (Ondansetron Hcl 4 Mg/2 Ml Vial) 4 mg IVPUSH Q8H PRN PRN Reason: Nausea and Vomiting Pharmacy Consult (Consult Rx Perform Med Rec) 1 each MISCELLANE ONCE PRN PRN Reason: Consult order Labs CBC & Chem 7: 07/02/21 05:46 07/02/21 05:46 Assessment and Plan (1) Stage II pressure ulcer of right buttock: Status: Acute (2) Dementia with behavioral disturbance: Status: Acute (3) Hypertension: Status: Acute (4) Hypothyroidism: Status: Acute Plan 75 year old female with history of HLD, HTN, hypothyroidism, dementia who was brought to the ED by EMS 5 after being found wandering on the street. She was seen by psych and deemed not to have capacity to make medical decisions and was admitted to the hospital on 06/29 with plans to pursue guardianship Dementia no behavioral issues at this time does not have capacity to make medical decisions pending guardianship HTN per outpatient notes, patient was previously on atenolol.? No fill history, pa tient likely not taking,was started on Norvasc during this admission, BP under adequate control,Continue current treatment. hypothyroidism Continue synthroid 50 mcg, TSH 2.42 Small Stage II pressure ulcer of right buttock, continue local wound care, continue protein supplements and frequent repositioning dvt ppx - mechanical devices code status - full code requires ongoing hospitalization to obtain guardianship and safe disposition Quality Stroke Does the patient have a stroke diagnosis?: No VTE Prior VTE?: No VTE Risk Level:: Medical - low VTE Device Contraindication: Treatment Not Indicated VTE Drug Contraindication: Treatment Not Indicated
[2021-07-06] MEDS: amLODIPine Besylate 5 MG TABLET PO (08:50)
[2021-07-06 15:08] VITALS: BP 110/58; PULSE 81; RESP 18; TEMP 36.5; O2SAT 98
[2021-07-06 19:46] LABS: Glucose, Whole Blood 109 mg/dL (60-115)
[2021-07-06 23:21] VITALS: BP 108/59; PULSE 71; RESP 16; TEMP 36.6; O2SAT 99
[2021-07-07] MEDS: Levothyroxine Sodium 50 MCG TABLET PO (06:38)
[2021-07-07 08:00] VITALS: BP 132/74; PULSE 73; RESP 17; TEMP 36.3; O2SAT 98
[2021-07-07] MEDS: amLODIPine Besylate 5 MG TABLET PO (08:40)
--- NOTE | 2021-07-07 11:30 | P.PNIM_ITS ---
Subjective Subjective Date of Service: 07/07/21 Interval History: seen and examined this morning, remains pleasantly confused,resting in bed offers no acute complaints of fever, chills, no chest pain, or shortness of breath. 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, no dizziness ?CVS no chest pain, no palpitation ?GI no nausea, no vomiting, no abdominal pain Review of Systems: Yes all other systems are reviewed and are negative Physical Exam Vital Signs: Vital Signs: Last Vital Signs Temp 97.3 F 07/07/21 08:00 Pulse 73 07/07/21 08:00 Resp 17 07/07/21 08:00 BP 132/74 07/07/21 08:00 Pulse Ox 98 07/07/21 08:00 BMI result Body Mass Index 21.3 Const: Other: General awake alert , no distress ?Neck no JVD ?Cardio S1 and S-2 normal heart sounds regular rate rhythm ?abdomen soft nontender ?extremities no edema Objective Data Active Medications Acetaminophen (Acetaminophen 325 Mg Tablet) 650 mg PO Q6H PRN PRN Reason: Pain, Mild (Pain Scale 1-3) Amlodipine Besylate (Amlodipine Besylate 5 Mg Tablet) 5 mg PO DAILY [facility]; Protocol Last Admin: 07/07/21 08:40 Dose: 5 mg Documented by: BOLA Levothyroxine Sodium (Levothyroxine Sodium 50 Mcg Tablet) 50 mcg PO DAILY@0600 [facility] Last Admin: 07/07/21 06:38 Dose: 50 mcg Documented by: FERNANDO Ondansetron HCl (Ondansetron Hcl 4 Mg/2 Ml Vial) 4 mg IVPUSH Q8H PRN PRN Reason: Nausea and Vomiting Pharmacy Consult (Consult Rx Perform Med Rec) 1 each MISCELLANE ONCE PRN PRN Reason: Consult order Labs CBC & Chem 7: 07/02/21 05:46 07/02/21 05:46 Labs: Laboratory Results - last 24 hr 07/06/21 19:43 POC Glucose 109 Assessment and Plan (1) Stage II pressure ulcer of right buttock: Status: Acute (2) Dementia with behavioral disturbance: Status: Acute (3) Hypertension: Status: Acute (4) Hypothyroidism: Status: Acute Plan 75 year old female with history of HLD, HTN, hypothyroidism, dementia who was brought to the ED by EMS 06/17 after being found wandering on the street. She was seen by psych and deemed not to have capacity to make medical decisions and was admitted to the hospital on 06/29 with plans to pursue guardianship Dementia no behavioral issues at this time does not have capacity to make medical decisions pending guardianship HTN per outpatient notes, patient was previously on atenolol.? No fill history, patient likely not taking,was started on Norvasc during this admission, BP under adequate control,Continue current treatment. hypothyroidism Continue synthroid 50 mcg, TSH 2.42 Small Stage II pressure ulcer of right buttock, continue local wound care, continue protein supplements and frequent repositioning dvt ppx - mechanical devices code status - full code requires ongoing hospitalization to obtain guardianship and safe disposition Quality Stroke Does the patient have a stroke diagnosis?: No VTE Prior VTE?: No VTE Risk Level:: Medical - low VTE Device Contraindication: Treatment Not Indicated VTE Drug Contraindication: Treatment Not Indicated
[2021-07-07 15:12] VITALS: BP 131/67; PULSE 88; RESP 18; TEMP 37.3; O2SAT 98
[2021-07-07 19:38] VITALS: BP 113/72; PULSE 87; RESP 20; TEMP 36.9; O2SAT 97
[2021-07-07 23:16] VITALS: RESP 16
[2021-07-08] MEDS: Levothyroxine Sodium 50 MCG TABLET PO (05:06)
[2021-07-08 07:08] VITALS: BP 126/63; PULSE 63; RESP 18; TEMP 36; O2SAT 98
--- NOTE | 2021-07-08 09:22 | MHC.CM.PN ---
EMR REVIEWED, PT COMPLIANT W/MEDICATION AND VS, PT GETTING UP FROM CHAIR AND SETTING OFF ALARM MULTIPLE TIMES, CM MET W/PT WHO REPORTS SHE WANTS TO WALK AROUND, CM TOOK PT FOR A WALK THROUGHOUT ENTIRE UNIT, ONCE PT RETURNED TO ROOM CM REINFORCED SHE CAN'T WALK AROUND BY HERSELF, PT AGREEABLE TO SIT BY WINDOW, WATCH TV AND WAIT FOR STAFF OR THIS CM TO RETURN TO TAKE ANOTHER WALK. CM DIRECTOR HAS NOT HEARD FROM [facility] RE FINDING A GUARDIAN FOR THIS PT, CM WILL CONT TO FOLLOW.
[2021-07-08] MEDS: amLODIPine Besylate 5 MG TABLET PO (09:29)
--- NOTE | 2021-07-08 09:34 | HO.PM.IMPN ---
Subjective Subjective Date of Service: 07/08/21 Interval History: Resting in bed offers no acute complaints, no fevers chills, no chest pain, no shortness of breath patient remains pleasantly confused. 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, no dizziness CVS no chest pain, no palpitation GI no nausea, no vomiting, no abdominal pain Review of Systems: Yes all other systems are reviewed and are negative Physical Exam Vital Signs: Vital Signs: Last Vital Signs Temp 96.8 F 07/08/21 07:08 Pulse 63 07/08/21 07:08 Resp 18 07/08/21 07:08 BP 126/63 07/08/21 07:08 Pulse Ox 98 07/08/21 07:08 BMI result Body Mass Index 21.3 Const: Other: General awake alert , no distress, confused Neck no JVD Cardio S1 and S-2 normal heart sounds regular rate rhythm abdomen soft nontender extremities no edema Objective Data Active Medications Acetaminophen (Acetaminophen 325 Mg Tablet) 650 mg PO Q6H PRN PRN Reason: Pain, Mild (Pain Scale 1-3) Amlodipine Besylate (Amlodipine Besylate 5 Mg Tablet) 5 mg PO DAILY [facility]; Protocol Last Admin: 07/08/21 09:29 Dose: 5 mg Documented by: VIGNESH Levothyroxine Sodium (Levothyroxine Sodium 50 Mcg Tablet) 50 mcg PO DAILY@0600 [facility] Last Admin: 07/08/21 05:06 Dose: 50 mcg Documented by: FERNANDO Ondansetron HCl (Ondansetron Hcl 4 Mg/2 Ml Vial) 4 mg IVPUSH Q8H PRN PRN Reason: Nausea and Vomiting Pharmacy Consult (Consult Rx Perform Med Rec) 1 each MISCELLANE ONCE PRN PRN Reason: Consult order Labs CBC & Chem 7: 07/02/21 05:46 07/02/21 05:46 Assessment and Plan (1) Stage II pressure ulcer of right buttock: Status: Acute (2) Dementia with behavioral disturbance: Status: Acute (3) Hypertension: Status: Acute (4) Hypothyroidism: Status: Acute Plan 75 year old female with history of HLD, HTN, hypothyroidism, dementia who was brought to the ED by EMS 06/17 after being found wandering on the street. She was seen by psych and deemed not to have capacity to make medical decisions and was admitted to the hospital on 06/29 with plans to pursue guardianship Dementia no behavioral issues at this time does not have capacity to make medical decisions pending guardianship HTN per outpatient notes, patient was previously on atenolol.? No fill history, patient likely not taking,was started on Norvasc during this admission, BP under adequate control,Continue current treatment. hypothyroidism Continue synthroid 50 mcg, TSH 2.42 Small Stage II pressure ulcer of right buttock, continue local wound care, continue protein supplements and frequent repositioning dvt ppx - mechanical devices code status - full code requires ongoing hospitalization to obtain guardianship and safe disposition Quality Stroke Does the patient have a stroke diagnosis?: No VTE Prior VTE?: No VTE Risk Level:: Medical - low VTE Device Contraindication: Treatment Not Indicated VTE Drug Contraindication: Treatment Not Indicated
[2021-07-08 11:05] VITALS: BP 114/55; PULSE 71; RESP 18; TEMP 36.3; O2SAT 100
--- NOTE | 2021-07-08 12:33 | MHC.CLN ---
F/U DIET=REGULAR WITH ENSURE BID. APPEARS TO BE EATING WELL. WOUND TO RIGHT BUTTOCK STAGE I. SUPPLEMENT PROVIDES ADDITIONAL 700 KCAL AND 40 G PROTEIN. PATIENT CONFUSED BUT SAID SHE LIKED SUPPLEMENT. CONTINUE CURRENT DIET AND SUPPLEMENT ORDERS.
[2021-07-08 15:43] VITALS: BP 133/74; PULSE 83; RESP 18; TEMP 36.3; O2SAT 100
[2021-07-09] VITALS: BP 114/65; PULSE 76; RESP 18; TEMP 36.1; O2SAT 97
[2021-07-09] MEDS: Levothyroxine Sodium 50 MCG TABLET PO (05:52)
[2021-07-09 07:50] VITALS: BP 123/66; PULSE 68; RESP 18; TEMP 36.8; O2SAT 98
--- NOTE | 2021-07-09 08:08 | HO.PM.IMPN ---
Subjective Subjective Date of Service: 07/09/21 Interval History: offers no acute complaints, no fevers chills, no chest pain, no shortness of breath patient remains pleasantly confused. Review of Systems ROUND UP RING HAND no headache, no dizziness CVS no chest pain, no palpitation GI no nausea, no vomiting, no abdominal pain Review of Systems: Yes all other systems are reviewed and are negative Physical Exam Vital Signs: Vital Signs: Last Vital Signs Temp 98.2 F 07/09/21 07:50 Pulse 68 07/09/21 07:50 Resp 18 07/09/21 07:50 BP 123/66 07/09/21 07:50 Pulse Ox 98 07/09/21 07:50 BMI result Body Mass Index 21.3 Const: Other: General awake aler t , no distress, c onfused Neck no JV D Cardio S1 and S- 2 normal heart elvin nds regular rate r hythm abdomen soft nontender extremi ties no edema Objective Data Active Medications Acetaminophen (Acetaminophen 325 Mg Tablet) 650 mg PO Q6H PRN PRN Reason: Pain, Mild (Pain Scale 1-3) Amlodipine Besylate (Amlodipine Besylate 5 Mg Tablet) 5 mg PO DAILY [facility]; Protocol Last Admin: 07/08/21 09:29 Dose: 5 mg Documented by: VIGNESH Levothyroxine Sodium (Levothyroxine Sodium 50 Mcg Tablet) 50 mcg PO DAILY@0600 [facility] Last Admin: 07/09/21 05:52 Dose: 50 mcg Documented by: LYN Ondansetron HCl (Ondansetron Hcl 4 Mg/2 Ml Vial) 4 mg IVPUSH Q8H PRN PRN Reason: Nausea and Vomiting Pharmacy Consult (Consult Rx Perform Med Rec) 1 each MISCELLANE ONCE PRN PRN Reason: Consult order Labs CBC & Chem 7: 07/02/21 05:46 07/02/21 05:46 Assessment and Plan (1) Stage II pressure ulcer of right buttock: Status: Acute (2) Dementia with behavioral disturbance: Status: Acute (3) Hypertension: Status: Acute (4) Hypothyroidism: Status: Acute Plan 75 year old female with history of HLD, HTN, hypothyroidism, dementia who was brought to the ED by EMS 06/17 after being found wandering on the street. She was seen by psych and deemed not to have capacity to make medical decisions and was admitted to the hospital on 06/29 with plans to pursue guardianship Dementia no behavioral issues at this time does not have capacity to make medical decisions pending guardianship HTN BP is stable continue Norvasc hypothyroidism Continue synthroid 50 mcg, TSH 2.42 Small Stage II pressure ulcer of right buttock, continue local wound care, continue protein supplements and frequent repositioning dvt ppx - mechanical devices code status - full code requires ongoing hospitalization to obtain guardianship and safe disposition Quality Stroke Does the patient have a stroke diagnosis?: No VTE Prior VTE?: No VTE Risk Level:: Medical - low VTE Device Contraindication: Treatment Not Indicated VTE Drug Contraindication: Treatment Not Indicated
[2021-07-09] MEDS: amLODIPine Besylate 5 MG TABLET PO (11:58)
[2021-07-09 15:00] VITALS: BP 132/68; PULSE 82; RESP 18; TEMP 36.3; O2SAT 100
[2021-07-10] VITALS: BP 111/64; PULSE 75; RESP 18; TEMP 36.4; O2SAT 98
[2021-07-10] MEDS: Levothyroxine Sodium 50 MCG TABLET PO (05:32)
[2021-07-10 07:19] VITALS: BP 115/59; PULSE 71; RESP 18; TEMP 36.7; O2SAT 97
--- NOTE | 2021-07-10 07:31 | HO.PM.IMPN ---
Subjective Subjective Date of Service: 07/10/21 Interval History: No complaints, no acute overnight issues, remains pleasantly confused. Review of Systems [employer] DEV[employer]OPER no headache, no dizziness CVS no chest pain, no palpitation GI no nausea, no vomiting, no abdominal pain Review of Systems: Yes all other systems are reviewed and are negative Physical Exam Vital Signs: Vital Signs: Last Vital Signs Temp 98.1 F 07/10/21 07:19 Pulse 71 07/10/21 07:19 Resp 18 07/10/21 07:19 BP 115/59 L 07/10/21 07:19 Pulse Ox 97 07/10/21 07:19 BMI result Body Mass Index 21.3 Const: Other: General awake alert , no distress, confused Neck no JVD Cardio normal heart sounds regular rate rhythm abdomen soft?nontender extremities no edema Objective Data Active Medications Acetaminophen (Acetaminophen 325 Mg Tablet) 650 mg PO Q6H PRN PRN Reason: Pain, Mild (Pain Scale 1-3) Amlodipine Besylate (Amlodipine Besylate 5 Mg Tablet) 5 mg PO DAILY [facility]; Protocol Last Admin: 07/09/21 11:58 Dose: 5 mg Documented by: MANUELITO Levothyroxine Sodium (Levothyroxine Sodium 50 Mcg Tablet) 50 mcg PO DAILY@0600 [facility] Last Admin: 07/10/21 05:32 Dose: 50 mcg Documented by: OLE Ondansetron HCl (Ondansetron Hcl 4 Mg/2 Ml Vial) 4 mg IVPUSH Q8H PRN PRN Reason: Nausea and Vomiting Pharmacy Consult (Consult Rx Perform Med Rec) 1 each MISCELLANE ONCE PRN PRN Reason: Consult order Labs CBC & Chem 7: 07/02/21 05:46 07/02/21 05:46 Assessment and Plan (1) Stage II pressure ulcer of right buttock: Status: Acute (2) Dementia with behavioral disturbance: Status: Acute (3) Hypertension: Status: Acute (4) Hypothyroidism: Status: Acute Plan 75 year old female with history of HLD, HTN, hypothyroidism, dementia who was brought to the ED by EMS 06/17 after being found wandering on the street. She was seen by psych and deemed not to have capacity to make medical decisions and was admitted to the hospital on 06/29 with plans to pursue guardianship Dementia no behavioral issues at this time does not have capacity to make medical decisions pending guardianship HTN BP is stable continue Norvasc hypothyroidism Continue synthroid 50 mcg, TSH 2.42 Small Stage II pressure ulcer of right buttock, continue local wound care, continue protein supplements and frequent repositioning dvt ppx - mechanical devices code status - full code requires ongoing hospitalization to obtain guardianship and safe disposition Quality Stroke Does the patient have a stroke diagnosis?: No VTE Prior VTE?: No VTE Risk Level:: Medical - low VTE Device Contraindication: Treatment Not Indicated VTE Drug Contraindication: Treatment Not Indicated
[2021-07-10] MEDS: amLODIPine Besylate 5 MG TABLET PO (09:42)
[2021-07-10 15:53] VITALS: BP 105/56; PULSE 73; RESP 16; TEMP 36.8; O2SAT 100
[2021-07-11] VITALS: BP 126/73; PULSE 74; RESP 17; TEMP 36.2; O2SAT 100
[2021-07-11] MEDS: Levothyroxine Sodium 50 MCG TABLET PO (05:36)
[2021-07-11 07:51] VITALS: BP 125/69; PULSE 73; RESP 18; TEMP 36.6; O2SAT 98
[2021-07-11] MEDS: amLODIPine Besylate 5 MG TABLET PO (10:27)
--- NOTE | 2021-07-11 11:54 | P.PNIM_ITS ---
Subjective Subjective Date of Service: 07/11/21 Interval History: Awake alert resting comfortably offers no acute complaints, no events overnight. Review of Systems Review of Systems: Yes all other systems are reviewed and are negative Physical Exam Vital Signs: Vital Signs: Last Vital Signs Temp 97.9 F 07/11/21 07:51 Pulse 73 07/11/21 07:51 Resp 18 07/11/21 07:51 BP 125/69 07/11/21 07:51 Pulse Ox 98 07/11/21 07:51 BMI result Body Mass Index 21.3 Const: Other: General awake alert , no distress, confused Neck no JVD Cardio normal heart sounds regular rate rhythm abdomen soft?nontender extremities no edema Objective Data Active Medications Acetaminophen (Acetaminophen 325 Mg Tablet) 650 mg PO Q6H PRN PRN Reason: Pain, Mild (Pain Scale 1-3) Amlodipine Besylate (Amlodipine Besylate 5 Mg Tablet) 5 mg PO DAILY [facility]; Protocol Last Admin: 07/11/21 10:27 Dose: 5 mg Documented by: MANUELITO Levothyroxine Sodium (Levothyroxine Sodium 50 Mcg Tablet) 50 mcg PO DAILY@0600 [facility] Last Admin: 07/11/21 05:36 Dose: 50 mcg Documented by: JOSEPH Ondansetron HCl (Ondansetron Hcl 4 Mg/2 Ml Vial) 4 mg IVPUSH Q8H PRN PRN Reason: Nausea and Vomiting Pharmacy Consult (Consult Rx Perform Med Rec) 1 each MISCELLANE ONCE PRN PRN Reason: Consult order Labs CBC & Chem 7: 07/02/21 05:46 07/02/21 05:46 Assessment and Plan (1) Stage II pressure ulcer of right buttock: Status: Acute (2) Dementia with behavioral disturbance: Status: Acute (3) Hypertension: Status: Acute (4) Hypothyroidism: Status: Acute Plan 75 year old female with history of HLD, HTN, hypothyroidism, dementia who was brought to the ED by EMS 06/17 after being found wandering on the street. She was seen by psych and deemed not to have capacity to make medical decisions and was admitted to the hospital on 06/29 with plans to pursue guardianship Dementia no behavioral issues at this time does not have capacity to make medical decisions pending guardianship HTN BP is stable continue Norvasc hypothyroidism Continue synthroid 50 mcg, TSH 2.42 Small Stage II pressure ulcer of right buttock, continue local wound care, continue protein supplements and frequent repositioning dvt ppx - mechanical devices code status - full code requires ongoing hospitalization to obtain guardianship and safe disposition Quality Stroke Does the patient have a stroke diagnosis?: No VTE Prior VTE?: No VTE Risk Level:: Medical - low VTE Device Contraindication: Treatment Not Indicated VTE Drug Contraindication: Treatment Not Indicated
[2021-07-11 15:40] VITALS: BP 134/71; PULSE 77; RESP 18; TEMP 37; O2SAT 99
[2021-07-11 23:19] VITALS: BP 115/66; PULSE 78; RESP 18; TEMP 37; O2SAT 98
[2021-07-12] MEDS: Levothyroxine Sodium 50 MCG TABLET PO (05:38)
[2021-07-12 07:53] VITALS: BP 117/68; PULSE 77; RESP 18; TEMP 36.7; O2SAT 98
[2021-07-12] MEDS: amLODIPine Besylate 5 MG TABLET PO (10:30)
--- NOTE | 2021-07-12 11:34 | HO.PM.IMPN ---
Subjective Subjective Date of Service: 07/12/21 Interval History: Patient awake, alert pleasantly confused, eating breakfast, no acute events overnight. Review of Systems Review of Systems: Yes all other systems are reviewed and are negative Physical Exam Vital Signs: Vital Signs: Last Vital Signs Temp 98.1 F 07/12/21 07:53 Pulse 77 07/12/21 07:53 Resp 18 07/12/21 07:53 BP 117/68 07/12/21 07:53 Pulse Ox 98 07/12/21 07:53 BMI result Body Mass Index 21.3 Const: Other: General awake aler t , no distress, c onfused Neck no JV D Cardio normal he art sounds regular rate rhythm Lungs clear to ausculta tion abdomen soft? nontender extremit ies no edema Objective Data Active Medications Acetaminophen (Acetaminophen 325 Mg Tablet) 650 mg PO Q6H PRN PRN Reason: Pain, Mild (Pain Scale 1-3) Amlodipine Besylate (Amlodipine Besylate 5 Mg Tablet) 5 mg PO DAILY [facility]; Protocol Last Admin: 07/12/21 10:30 Dose: 5 mg Documented by: VIGNESH Levothyroxine Sodium (Levothyroxine Sodium 50 Mcg Tablet) 50 mcg PO DAILY@0600 [facility] Last Admin: 07/12/21 05:38 Dose: 50 mcg Documented by: JOSEPH Ondansetron HCl (Ondansetron Hcl 4 Mg/2 Ml Vial) 4 mg IVPUSH Q8H PRN PRN Reason: Nausea and Vomiting Pharmacy Consult (Consult Rx Perform Med Rec) 1 each MISCELLANE ONCE PRN PRN Reason: Consult order Labs CBC & Chem 7: 07/02/21 05:46 07/02/21 05:46 Assessment and Plan (1) Stage II pressure ulcer of right buttock: Status: Acute (2) Dementia with behavioral disturbance: Status: Acute (3) Hypertension: Status: Acute (4) Hypothyroidism: Status: Acute Plan 75 year old female with history of HLD, HTN, hypothyroidism, dementia who was brought to the ED by EMS 06/17 after being found wandering on the street. She was seen by psych and deemed not to have capacity to make medical decisions and was admitted to the hospital on 06/29 with plans to pursue guardianship Dementia no behavioral issues at this time does not have capacity to make medical decisions pending guardianship HTN BP is stable continue Norvasc hypothyroidism Continue synthroid 50 mcg, TSH 2.42 Small Stage II pressure ulcer of right buttock, continue local wound care, continue protein supplements and frequent repositioning dvt ppx - mechanical devices code status - full code requires ongoing hospitalization to obtain guardianship and safe disposition Quality Stroke Does the patient have a stroke diagnosis?: No VTE Prior VTE?: No VTE Risk Level:: Medical - low VTE Device Contraindication: Treatment Not Indicated VTE Drug Contraindication: Treatment Not Indicated
--- NOTE | 2021-07-12 12:37 | MHC.CM.PN ---
Update from Artie re: progress on guardianship process- Gera Schofield will be guardian for Lalita. We filed with the court last and are still waiting for court to open file. I called them on Sunday and emailed to day to see what?s going on.
[2021-07-12 15:14] VITALS: BP 122/65; PULSE 89; RESP 16; TEMP 36.5; O2SAT 100
[2021-07-12 23:46] VITALS: BP 112/63; PULSE 88; RESP 17; TEMP 36.2; O2SAT 99
[2021-07-13] MEDS: Levothyroxine Sodium 50 MCG TABLET PO (06:21)
[2021-07-13 08:00] VITALS: BP 117/69; PULSE 70; RESP 16; TEMP 36.2; O2SAT 97
[2021-07-13] MEDS: amLODIPine Besylate 5 MG TABLET PO (12:47)
--- NOTE | 2021-07-13 13:25 | MHC.CM.PN ---
Addendum entered by Kendra Carson RN 07/13/21 13:28: PT WILL NEED LOCKED DEMENTIA UNIT D/T WANDERING. Original Note: PER CM DIRECTOR, [facility] [place] OBTAINED AMI LESLIE FOR GUARDIANSHIP, PT'S COURT DATE FOR GUARDIANSHIP/CONSERVATORSHIP 07/28/21, CM WILLL CONT TO FOLLOW PLACEMENTS.
--- NOTE | 2021-07-13 13:26 | MHC.CM.PN ---
Court date for guardianship 07/28 @ 10AM, guardian will be Gera Regalado
--- NOTE | 2021-07-13 15:06 | P.PNIM_ITS ---
Subjective Subjective Date of Service: 07/13/21 Interval History: Patient awake alert eating breakfast, remain pleasantly confused offers no acute complaints, no events overnight. Review of Systems Review of Systems: Yes all other systems are reviewed and are negative Physical Exam Vital Signs: Vital Signs: Last Vital Signs Temp 97.1 F 07/13/21 08:00 Pulse 70 07/13/21 08:00 Resp 16 07/13/21 08:00 BP 117/69 07/13/21 08:00 Pulse Ox 97 07/13/21 08:00 BMI result Body Mass Index 21.3 Const: Other: General awake alert , no distress, confused Neck no JVD Cardio normal heart sounds regular rate rhythm abdomen soft?nontender extremities no edema Objective Data Active Medications Acetaminophen (Acetaminophen 325 Mg Tablet) 650 mg PO Q6H PRN PRN Reason: Pain, Mild (Pain Scale 1-3) Amlodipine Besylate (Amlodipine Besylate 5 Mg Tablet) 5 mg PO DAILY [facility]; Protocol Last Admin: 07/13/21 12:47 Dose: 5 mg Documented by: VIGNESH Levothyroxine Sodium (Levothyroxine Sodium 50 Mcg Tablet) 50 mcg PO DAILY@0600 [facility] Last Admin: 07/13/21 06:21 Dose: 50 mcg Documented by: SABRINA Ondansetron HCl (Ondansetron Hcl 4 Mg/2 Ml Vial) 4 mg IVPUSH Q8H PRN PRN Reason: Nausea and Vomiting Pharmacy Consult (Consult Rx Perform Med Rec) 1 each MISCELLANE ONCE PRN PRN Reason: Consult order Labs CBC & Chem 7: 07/02/21 05:46 07/02/21 05:46 Assessment and Plan (1) Stage II pressure ulcer of right buttock: Status: Acute (2) Dementia with behavioral disturbance: Status: Acute (3) Hypertension: Status: Acute (4) Hypothyroidism: Status: Acute Plan 75 year old female with history of HLD, HTN, hypothyroidism, dementia who was brought to the ED by EMS 06/17 after being found wandering on the street. She was seen by psych and deemed not to have capacity to make medical decisions and was admitted to the hospital on 06/29 with plans to pursue guardianship Dementia no behavioral issues at this time does not have capacity to make medical decisions pending guardianship HTN BP is stable continue Norvasc hypothyroidism Continue synthroid 50 mcg, TSH 2.42 Small Stage II pressure ulcer of right buttock, continue local wound care, continue protein supplements and frequent repositioning dvt ppx - mechanical devices code status - full code requires ongoing hospitalization to obtain guardianship and safe disposition Quality Stroke Does the patient have a stroke diagnosis?: No VTE Prior VTE?: No VTE Risk Level:: Medical - low VTE Device Contraindication: Treatment Not Indicated VTE Drug Contraindication: Treatment Not Indicated
[2021-07-13 15:20] VITALS: BP 128/71; PULSE 79; RESP 18; TEMP 36.9; O2SAT 100
[2021-07-13 23:19] VITALS: BP 115/60; PULSE 74; RESP 18; TEMP 36.9; O2SAT 98
[2021-07-14] MEDS: Levothyroxine Sodium 50 MCG TABLET PO (05:49)
[2021-07-14 07:44] VITALS: BP 123/67; PULSE 72; RESP 18; TEMP 37.1; O2SAT 96
[2021-07-14] MEDS: amLODIPine Besylate 5 MG TABLET PO (12:40)
[2021-07-14 15:58] VITALS: BP 118/64; PULSE 80; RESP 16; TEMP 36.4; O2SAT 100
[2021-07-15] MEDS: Levothyroxine Sodium 50 MCG TABLET PO (06:02)
[2021-07-15 07:55] VITALS: BP 144/72; PULSE 68; RESP 18; TEMP 36.9; O2SAT 97
[2021-07-15 10:01] VITALS: BMI 21.3
[2021-07-15] MEDS: amLODIPine Besylate 5 MG TABLET PO (10:31)
--- NOTE | 2021-07-15 11:30 | P.PNIM_ITS ---
Subjective Subjective Date of Service: 07/15/21 Interval History: Patient remains pleasantly confused , had no acute events overnight, tolerating diet. Review of Systems Review of Systems: Yes all other systems are reviewed and are negative Physical Exam Vital Signs: Vital Signs: Last Vital Signs Temp 98.4 F 07/15/21 07:55 Pulse 68 07/15/21 07:55 Resp 18 07/15/21 07:55 BP 144/72 H 07/15/21 07:55 Pulse Ox 97 07/15/21 07:55 BMI result Body Mass Index 21.3 Const: Other: General awake alert , no distress, confused Neck no JVD Cardio normal heart sounds, regular rate rhythm abdomen soft,?nontender extremities no edema Objective Data Active Medications Acetaminophen (Acetaminophen 325 Mg Tablet) 650 mg PO Q6H PRN PRN Reason: Pain, Mild (Pain Scale 1-3) Amlodipine Besylate (Amlodipine Besylate 5 Mg Tablet) 5 mg PO DAILY [facility]; Protocol Last Admin: 07/15/21 10:31 Dose: 5 mg Documented by: CHERYL Levothyroxine Sodium (Levothyroxine Sodium 50 Mcg Tablet) 50 mcg PO DAILY@0600 [facility] Last Admin: 07/15/21 06:02 Dose: 50 mcg Documented by: VAUGHN Ondansetron HCl (Ondansetron Hcl 4 Mg/2 Ml Vial) 4 mg IVPUSH Q8H PRN PRN Reason: Nausea and Vomiting Pharmacy Consult (Consult Rx Perform Med Rec) 1 each MISCELLANE ONCE PRN PRN Reason: Consult order Labs CBC & Chem 7: 07/02/21 05:46 07/02/21 05:46 Assessment and Plan (1) Stage II pressure ulcer of right buttock: Status: Acute (2) Dementia with behavioral disturbance: Status: Acute (3) Hypertension: Status: Acute (4) Hypothyroidism: Status: Acute Plan 75 year old female with history of HLD, HTN, hypothyroidism, dementia who was brought to the ED by EMS 06/17 after being found wandering on the street. She was seen by psych and deemed not to have capacity to make medical decisions and was admitted to the hospital on 06/29 with plans to pursue guardianship Dementia no behavioral issues at this time does not have capacity to make medical decisions pending guardianship HTN BP is stable continue Norvasc hypothyroidism Continue synthroid 50 mcg, TSH 2.42 Small Stage II pressure ulcer of right buttock, continue local wound care, continue protein supplements and frequent repositioning dvt ppx - mechanical devices code status - full code requires ongoing hospitalization to obtain guardianship and safe disposition Quality Stroke Does the patient have a stroke diagnosis?: No VTE Prior VTE?: No VTE Risk Level:: Medical - low VTE Device Contraindication: Treatment Not Indicated VTE Drug Contraindication: Treatment Not Indicated
[2021-07-15 16:00] VITALS: BP 126/66; PULSE 74; RESP 17; TEMP 36.1; O2SAT 99
[2021-07-15 23:53] VITALS: BP 139/79; PULSE 71; RESP 18; TEMP 36.5; O2SAT 98
[2021-07-16] MEDS: Levothyroxine Sodium 50 MCG TABLET PO (06:00)
[2021-07-16 08:00] VITALS: BP 133/74; PULSE 84; RESP 18; TEMP 36.6; O2SAT 99
--- NOTE | 2021-07-16 10:08 | HO.PM.IMPN ---
Subjective Subjective Date of Service: 07/16/21 Interval History: Remains pleasantly confused offers no acute complaints, no events overnight, no fevers, no chills, no nausea, no vomiting, tolerating diet. Review of Systems Review of Systems: Yes all other systems are reviewed and are negative Physical Exam Vital Signs: Vital Signs: Last Vital Signs Temp 97.8 F 07/16/21 08:00 Pulse 84 07/16/21 08:00 Resp 18 07/16/21 08:00 BP 133/74 07/16/21 08:00 Pulse Ox 99 07/16/21 08:00 BMI result Body Mass Index 21.3 Const: Other: General awake alert , no distress, confused Neck no JVD Cardio normal heart sounds, regular rate rhythm abdomen soft,?nontender extremities no edema Objective Data Active Medications Acetaminophen (Acetaminophen 325 Mg Tablet) 650 mg PO Q6H PRN PRN Reason: Pain, Mild (Pain Scale 1-3) Amlodipine Besylate (Amlodipine Besylate 5 Mg Tablet) 5 mg PO DAILY [facility]; Protocol Last Admin: 07/15/21 10:31 Dose: 5 mg Documented by: CHERYL Levothyroxine Sodium (Levothyroxine Sodium 50 Mcg Tablet) 50 mcg PO DAILY@0600 [facility] Last Admin: 07/16/21 06:00 Dose: 50 mcg Documented by: ABIOLA Ondansetron HCl (Ondansetron Hcl 4 Mg/2 Ml Vial) 4 mg IVPUSH Q8H PRN PRN Reason: Nausea and Vomiting Pharmacy Consult (Consult Rx Perform Med Rec) 1 each MISCELLANE ONCE PRN PRN Reason: Consult order Labs CBC & Chem 7: 07/02/21 05:46 07/02/21 05:46 Assessment and Plan (1) Stage II pressure ulcer of right buttock: Status: Acute (2) Dementia with behavioral disturbance: Status: Acute (3) Hypertension: Status: Acute (4) Hypothyroidism: Status: Acute Plan 75 year old female with history of HLD, HTN, hypothyroidism, dementia who was brought to the ED by EMS 06/17 after being found wandering on the street. She was seen by psych and deemed not to have capacity to make medical decisions and was admitted to the hospital on 06/29 with plans to pursue guardianship Dementia no behavioral issues at this time does not have capacity to make medical decisions pending guardianship HTN BP is stable continue Norvasc hypothyroidism Continue synthroid 50 mcg, TSH 2.42 Small Stage II pressure ulcer of right buttock, continue local wound care, continue protein supplements and frequent repositioning dvt ppx - mechanical devices code status - full code requires ongoing hospitalization to obtain guardianship and safe disposition Quality Stroke Does the patient have a stroke diagnosis?: No VTE Prior VTE?: No VTE Risk Level:: Medical - low VTE Device Contraindication: Treatment Not Indicated VTE Drug Contraindication: Treatment Not Indicated
[2021-07-16] MEDS: amLODIPine Besylate 5 MG TABLET PO (10:19)
[2021-07-16 15:16] VITALS: BP 127/75; PULSE 84; RESP 18; TEMP 36.4; O2SAT 100
[2021-07-17] MEDS: Levothyroxine Sodium 50 MCG TABLET PO (05:37)
[2021-07-17 08:00] VITALS: BP 120/67; PULSE 80; RESP 18; TEMP 36.8; O2SAT 99
[2021-07-17] MEDS: amLODIPine Besylate 5 MG TABLET PO (08:58)
--- NOTE | 2021-07-17 11:33 | HO.PM.IMPN ---
Subjective Subjective Date of Service: 07/17/21 Interval History: remains pleasantly confused, resting in bed, eating breakfast, denies nausea , vomiting, no abdominal pain, no acute events overnight. Physical Exam Vital Signs: Vital Signs: Last Vital Signs Temp 98.2 F 07/17/21 08:00 Pulse 80 07/17/21 08:00 Resp 18 07/17/21 08:00 BP 120/67 07/17/21 08:00 Pulse Ox 99 07/17/21 08:00 BMI result Body Mass Index 21.3 Const: Other: General awake alert , no distress, confused Neck no JVD Cardio normal heart sounds, regular rate rhythm abdomen soft,?nontender extremities no edema Objective Data Active Medications Acetaminophen (Acetaminophen 325 Mg Tablet) 650 mg PO Q6H PRN PRN Reason: Pain, Mild (Pain Scale 1-3) Amlodipine Besylate (Amlodipine Besylate 5 Mg Tablet) 5 mg PO DAILY [facility]; Protocol Last Admin: 07/17/21 08:58 Dose: 5 mg Documented by: RENNY Levothyroxine Sodium (Levothyroxine Sodium 50 Mcg Tablet) 50 mcg PO DAILY@0600 [facility] Last Admin: 07/17/21 05:37 Dose: 50 mcg Documented by: KULWINDER Ondansetron HCl (Ondansetron Hcl 4 Mg/2 Ml Vial) 4 mg IVPUSH Q8H PRN PRN Reason: Nausea and Vomiting Pharmacy Consult (Consult Rx Perform Med Rec) 1 each MISCELLANE ONCE PRN PRN Reason: Consult order Labs CBC & Chem 7: 07/02/21 05:46 07/02/21 05:46 Assessment and Plan (1) Stage II pressure ulcer of right buttock: Status: Acute (2) Dementia with behavioral disturbance: Status: Acute (3) Hypertension: Status: Acute (4) Hypothyroidism: Status: Acute Plan 75 year old female with history of HLD, HTN, hypothyroidism, dementia who was brought to the ED by EMS 06/17 after being found wandering on the street. She was seen by psych and deemed not to have capacity to make medical decisions and was admitted to the hospital on 06/29 with plans to pursue guardianship Dementia no behavioral issues at this time does not have capacity to make medical decisions pending guardianship HTN BP is stable continue Norvasc hypothyroidism Continue synthroid 50 mcg, TSH 2.42 Small Stage II pressure ulcer of right buttock, continue local wound care, continue protein supplements and frequent repositioning dvt ppx - mechanical devices code status - full code requires ongoing hospitalization to obtain guardianship and safe disposition Quality Stroke Does the patient have a stroke diagnosis?: No VTE Prior VTE?: No VTE Risk Level:: Medical - low VTE Device Contraindication: Treatment Not Indicated VTE Drug Contraindication: Treatment Not Indicated
[2021-07-17 15:21] VITALS: BP 122/64; PULSE 86; RESP 18; TEMP 36.6; O2SAT 100
[2021-07-17 23:53] VITALS: BP 128/73; PULSE 69; RESP 18; TEMP 37.3; O2SAT 98
[2021-07-18] MEDS: Levothyroxine Sodium 50 MCG TABLET PO (05:29)
[2021-07-18 07:42] VITALS: BP 131/69; PULSE 66; RESP 18; TEMP 36.3; O2SAT 100
[2021-07-18] MEDS: amLODIPine Besylate 5 MG TABLET PO (09:23)
--- NOTE | 2021-07-18 10:42 | MHC.CLN ---
F/U DIET=REGULAR WITH ENSURE BID. INTAKE APPEARS USUALLY GOOD, 50-100%. SMALL STAGE II WOUND TO RIGHT BUTTOCK. SUPPLEMENT PROVIDES ADDITIONAL 700 KCAL AND 40 G PROTEIN. CONTINUE SUPPLEMENT TO PROMOTE WOUND HEALING/SKIN INTEGRITY. NO NEW NUTRITION INTERVENTIONS AT THIS TIME. RD TO FOLLOW WEEKLY.
--- NOTE | 2021-07-18 11:46 | MHC.CM.PN ---
EMR REVIEWED, PT REMAINS MEDICALLY STABLE, MED COMPLIANT, PLEASANT W/STAFF HOWEVER DOES LIKE TO WALK THE UNIT MULTIPLE TIMES OF A DAY, PT WILL NEED LOCKED [place]NTIA UNIT, COURT DATE FOR GUARDIANSHIP 07/28/21. CM WILL CONT TO FOLLOW D/C NEEDS.
--- NOTE | 2021-07-18 13:13 | HO.PM.IMPN ---
Subjective Subjective Date of Service: 07/18/21 Interval History: remains pleasantly confused, no acute issues overnight. Review of Systems Review of Systems: Yes Unobtainable due to mental status Physical Exam Vital Signs: Vital Signs: Last Vital Signs Temp 97.3 F 07/18/21 07:42 Pulse 66 07/18/21 07:42 Resp 18 07/18/21 07:42 BP 131/69 07/18/21 07:42 Pulse Ox 100 07/18/21 07:42 BMI result Body Mass Index 21.3 Const: Other: General awake alert , no distress, confused Neck no JVD Cardio normal heart sounds, regular rate rhythm abdomen soft,?nontender extremities no edema Objective Data Active Medications Acetaminophen (Acetaminophen 325 Mg Tablet) 650 mg PO Q6H PRN PRN Reason: Pain, Mild (Pain Scale 1-3) Amlodipine Besylate (Amlodipine Besylate 5 Mg Tablet) 5 mg PO DAILY [facility]; Protocol Last Admin: 07/18/21 09:23 Dose: 5 mg Documented by: LEON Levothyroxine Sodium (Levothyroxine Sodium 50 Mcg Tablet) 50 mcg PO DAILY@0600 [facility] Last Admin: 07/18/21 05:29 Dose: 50 mcg Documented by: LUCINDA Ondansetron HCl (Ondansetron Hcl 4 Mg/2 Ml Vial) 4 mg IVPUSH Q8H PRN PRN Reason: Nausea and Vomiting Pharmacy Consult (Consult Rx Perform Med Rec) 1 each MISCELLANE ONCE PRN PRN Reason: Consult order Labs CBC & Chem 7: 07/02/21 05:46 07/02/21 05:46 Assessment and Plan (1) Stage II pressure ulcer of right buttock: Status: Acute (2) Dementia with behavioral disturbance: Status: Acute (3) Hypertension: Status: Acute (4) Hypothyroidism: Status: Acute Plan 75 year old female with history of HLD, HTN, hypothyroidism, dementia who was brought to the ED by EMS 06/17 after being found wandering on the street. She was seen by psych and deemed not to have capacity to make medical decisions and was admitted to the hospital on 06/29 with plans to pursue guardianship Dementia no behavioral issues at this time does not have capacity to make medical decisions pending guardianship HTN BP is stable continue Norvasc hypothyroidism Continue synthroid 50 mcg, TSH 2.42 Small Stage II pressure ulcer of right buttock, continue local wound care, continue protein supplements and frequent repositioning dvt ppx - mechanical devices code status - full code requires ongoing hospitalization to obtain guardianship and safe disposition Quality Stroke Does the patient have a stroke diagnosis?: No VTE Prior VTE?: No VTE Risk Level:: Medical - low VTE Device Contraindication: Treatment Not Indicated VTE Drug Contraindication: Treatment Not Indicated
--- NOTE | 2021-07-18 15:04 | MHC.CM.PN ---
PT SERVED W/CAM FOR GUARDIANSHIP, DCOUMENT IN FOLDER AND PLACED IN BEDSIDE TABLE PER PT REQUEST.
[2021-07-18 15:48] VITALS: BP 133/73; PULSE 86; RESP 18; TEMP 36.7; O2SAT 99
[2021-07-19] MEDS: Levothyroxine Sodium 50 MCG TABLET PO (05:34)
[2021-07-19 08:00] VITALS: BP 137/81; PULSE 68; RESP 16; TEMP 36.3; O2SAT 100
--- NOTE | 2021-07-19 09:17 | P.PNIM_ITS ---
Subjective Subjective Date of Service: 07/19/21 Review of Systems remains pleasantly confused, no acute issues overnight. Physical Exam Vital Signs: Vital Signs: Last Vital Signs Temp 97.4 F 07/19/21 08:00 Pulse 68 07/19/21 08:00 Resp 16 07/19/21 08:00 BP 137/81 07/19/21 08:00 Pulse Ox 100 07/19/21 08:00 BMI result Body Mass Index 21.3 Appearing in no acute distress lung sounds are clear to auscultation heart regular rate rhythm, clear S1, S2 positive bowel sounds, abdomen is soft, nontender neuro patient is alert, confusedf Objective Data Active Medications Acetaminophen (Acetaminophen 325 Mg Tablet) 650 mg PO Q6H PRN PRN Reason: Pain, Mild (Pain Scale 1-3) Amlodipine Besylate (Amlodipine Besylate 5 Mg Tablet) 5 mg PO DAILY [facility]; Protocol Last Admin: 07/18/21 09:23 Dose: 5 mg Documented by: LEON Levothyroxine Sodium (Levothyroxine Sodium 50 Mcg Tablet) 50 mcg PO DAILY@0600 [facility] Last Admin: 07/19/21 05:34 Dose: 50 mcg Documented by: LUCINDA Ondansetron HCl (Ondansetron Hcl 4 Mg/2 Ml Vial) 4 mg IVPUSH Q8H PRN PRN Reason: Nausea and Vomiting Pharmacy Consult (Consult Rx Perform Med Rec) 1 each MISCELLANE ONCE PRN PRN Reason: Consult order Labs CBC & Chem 7: 07/02/21 05:46 07/02/21 05:46 Assessment and Plan (1) Stage II pressure ulcer of right buttock: Status: Acute (2) Dementia with behavioral disturbance: Status: Acute (3) Hypertension: Status: Acute (4) Hypothyroidism: Status: Acute Plan 75 year old female with history of HLD, HTN, hypothyroidism, dementia who was brought to the ED by EMS 06/17 after being found wandering on the street. She was seen by psych and deemed not to have capacity to make medical decisions and was admitted to the hospital on 06/29 with plans to pursue guardianship Dementia no behavioral issues at this time does not have capacity to make medical decisions pending guardianship HTN BP is stable continue Norvasc hypothyroidism Continue synthroid 50 mcg, TSH 2.42 Small Stage II pressure ulcer of right buttock, continue local wound care, continue protein supplements and frequent repositioning dvt ppx - mechanical devices code status - full code Attending Dr. Thompson requires ongoing hospitalization to obtain guardianship and safe disposition Quality Stroke Does the patient have a stroke diagnosis?: No VTE Prior VTE?: No VTE Risk Level:: Medical - low VTE Device Contraindication: Treatment Not Indicated VTE Drug Contraindication: Treatment Not Indicated
[2021-07-19] MEDS: amLODIPine Besylate 5 MG TABLET PO (09:51)
[2021-07-19 15:37] VITALS: BP 117/69; PULSE 78; RESP 18; TEMP 36.5; O2SAT 100
[2021-07-19 15:38] VITALS: BP 117/69; PULSE 78; RESP 18; TEMP 35.9; O2SAT 100
[2021-07-20] MEDS: Levothyroxine Sodium 50 MCG TABLET PO (06:28)
[2021-07-20 06:51] LABS: Hematocrit 35.5 % (37.0-47.0); Hemoglobin 11.5 g/dl (12.0-16.0); Mean Corpuscular HGB Conc 32.4 g/dl (31.0-35.0); Mean Corpuscular Hemoglobin 30.7 pg (27.0-33.0); Mean Corpuscular Volume 94.9 fL (80.0-98.0); Mean Platelet Volume 10.9 fL (9.4-12.3); Platelet Count 215 X10*3/uL (160-400); Red Blood Count 3.74 X10*6/uL (4.20-5.50); Red Cell Distribution Width 13.2 % (11.0-16.0); White Blood Count 5.7 X10*3/uL (4.8-10.8)
[2021-07-20 07:07] VITALS: BP 139/74; PULSE 61; RESP 17; TEMP 36.1; O2SAT 100
[2021-07-20 07:10] LABS: Anion Gap 12 (12-20); Blood Urea Nitrogen 41 mg/dL (9-16); Calcium 8.7 mg/dL (8.4-10.2); Carbon Dioxide 27 mmol/L (22-29); Chloride 106 mmol/L (96-108); Creatinine Clr Calc Pharmacy 43.6; Estimated Glomerular Filt Rate 53; Glucose Random 90 mg/dL (60-115); Potassium 4.5 mmol/L (3.3-5.1); Sodium 140 mmol/L (135-145)
[2021-07-20] MEDS: amLODIPine Besylate 5 MG TABLET PO (09:59)
--- NOTE | 2021-07-20 11:12 | P.PNIM_ITS ---
Subjective Subjective Date of Service: 07/20/21 Interval History: no complaints Cardiovascular Cardiovascular: Reports no additional cardiovascular complaints Respiratory Respiratory: Reports no additional respiratory complaints Physical Exam Vital Signs: Vital Signs: Last Vital Signs Temp 96.9 F 07/20/21 07:07 Pulse 61 07/20/21 07:07 Resp 17 07/20/21 07:07 BP 139/74 07/20/21 07:07 Pulse Ox 100 07/20/21 07:07 O2 Del Method 07/20/21 07:07 BMI result Body Mass Index 21.3 Appearing in no acute distress lung sounds are clear to auscultation heart regular rate rhythm, clear S1, S2 positive bowel sounds, abdomen is soft, nontender neuro patient is alert, confusedf Objective Data Active Medications Acetaminophen (Acetaminophen 325 Mg Tablet) 650 mg PO Q6H PRN PRN Reason: Pain, Mild (Pain Scale 1-3) Amlodipine Besylate (Amlodipine Besylate 5 Mg Tablet) 5 mg PO DAILY [facility]; Protocol Last Admin: 07/20/21 09:59 Dose: 5 mg Documented By: CHERYL Levothyroxine Sodium (Levothyroxine Sodium 50 Mcg Tablet) 50 mcg PO DAILY@0600 [facility] Last Admin: 07/20/21 06:28 Dose: 50 mcg Documented By: KULWINDER Ondansetron HCl (Ondansetron Hcl 4 Mg/2 Ml Vial) 4 mg IVPUSH Q8H PRN PRN Reason: Nausea and Vomiting Pharmacy Consult (Consult Rx Perform Med Rec) 1 each MISCELLANE ONCE PRN PRN Reason: Consult order Labs CBC & Chem 7: 07/20/21 05:22 07/20/21 05:22 Labs: Laboratory Results - last 24 hr 07/20/21 07/20/21 05:22 05:22 MCV 94.9 MCH 30.7 MCHC 32.4 RDW 13.2 Plt Count 215 MPV 10.9 Absolute Nucleated RBC 0.000 Nucleated RBC % (auto) 0.0 Anion Gap 12 Estim Creat Clear Calc 43.6 Estimated GFR 53 Random Glucose 90 Calcium 8.7 Assessment and Plan (1) Stage II pressure ulcer of right buttock: Status: Acute (2) Dementia with behavioral disturbance: Status: Acute (3) Hypertension: Status: Acute (4) Hypothyroidism: Status: Acute Plan 75 year old female with history of HLD, HTN, hypothyroidism, dementia who was brought to the ED by EMS 06/17 after being found wandering on the street. She was seen by psych and deemed not to have capacity to make medical decisions and was admitted to the hospital on 06/29 with plans to pursue guardianship Dementia no behavioral issues at this time does not have capacity to make medical decisions pending guardianship HTN BP is stable continue Norvasc hypothyroidism Continue synthroid 50 mcg, TSH 2.42 Small Stage II pressure ulcer of right buttock, continue local wound care, continue protein supplements and frequent repositioning dvt ppx - ambulation code status - full code requires ongoing hospitalization to obtain guardianship and safe disposition Quality Stroke Does the patient have a stroke diagnosis?: No VTE Prior VTE?: No VTE Risk Level:: Medical - low VTE Device Contraindication: Treatment Not Indicated VTE Drug Contraindication: Treatment Not Indicated
[2021-07-20 15:19] VITALS: BP 118/69; PULSE 92; RESP 17; TEMP 36.3; O2SAT 95
[2021-07-20 23:19] VITALS: BP 119/66; PULSE 76; RESP 17; TEMP 36.2; O2SAT 99
[2021-07-21] VITALS: RESP 18
[2021-07-21] MEDS: Levothyroxine Sodium 50 MCG TABLET PO (05:51)
[2021-07-21 07:38] VITALS: BP 119/60; PULSE 71; RESP 18; TEMP 36.5; O2SAT 99
[2021-07-21] MEDS: amLODIPine Besylate 5 MG TABLET PO (08:35)
--- NOTE | 2021-07-21 10:47 | HO.PM.IMPN ---
Subjective Subjective Date of Service: 07/21/21 Interval History: no complaints Cardiovascular Cardiovascular: Reports no additional cardiovascular complaints Respiratory Respiratory: Reports no additional respiratory complaints Physical Exam Vital Signs: Vital Signs: Last Vital Signs Temp 97.7 F 07/21/21 07:38 Pulse 71 07/21/21 07:38 Resp 18 07/21/21 07:38 BP 119/60 07/21/21 07:38 Pulse Ox 99 07/21/21 07:38 O2 Del Method 07/21/21 07:38 BMI result Body Mass Index 21.3 Appearing in no acute distress lung sounds are clear to auscultation heart regular rate rhythm, clear S1, S2 positive bowel sounds, abdomen is soft, nontender neuro patient is alert, confusedf Objective Data Active Medications Acetaminophen (Acetaminophen 325 Mg Tablet) 650 mg PO Q6H PRN PRN Reason: Pain, Mild (Pain Scale 1-3) Amlodipine Besylate (Amlodipine Besylate 5 Mg Tablet) 5 mg PO DAILY [facility]; Protocol Last Admin: 07/21/21 08:35 Dose: 5 mg Documented By: INES Levothyroxine Sodium (Levothyroxine Sodium 50 Mcg Tablet) 50 mcg PO DAILY@0600 [facility] Last Admin: 07/21/21 05:51 Dose: 50 mcg Documented By: ABIOLA Ondansetron HCl (Ondansetron Hcl 4 Mg/2 Ml Vial) 4 mg IVPUSH Q8H PRN PRN Reason: Nausea and Vomiting Pharmacy Consult (Consult Rx Perform Med Rec) 1 each MISCELLANE ONCE PRN PRN Reason: Consult order Labs CBC & Chem 7: 07/20/21 05:22 07/20/21 05:22 Assessment and Plan (1) Stage II pressure ulcer of right buttock: Status: Acute (2) Dementia with behavioral disturbance: Status: Acute (3) Hypertension: Status: Acute (4) Hypothyroidism: Status: Acute Plan 75 year old female with history of HLD, HTN, hypothyroidism, dementia who was brought to the ED by EMS 06/17 after being found wandering on the street. She was seen by psych and deemed not to have capacity to make medical decisions and was admitted to the hospital on 06/29 with plans to pursue guardianship Dementia no behavioral issues at this time does not have capacity to make medical decisions pending guardianship HTN BP is stable continue Norvasc hypothyroidism Continue synthroid 50 mcg, TSH 2.42 Small Stage II pressure ulcer of right buttock, continue local wound care, continue protein supplements and frequent repositioning dvt ppx - ambulation code status - full code requires ongoing hospitalization to obtain guardianship and safe disposition Quality Stroke Does the patient have a stroke diagnosis?: No VTE Prior VTE?: No VTE Risk Level:: Medical - low VTE Device Contraindication: Treatment Not Indicated VTE Drug Contraindication: Treatment Not Indicated
[2021-07-21 15:17] VITALS: BP 117/76; PULSE 83; RESP 17; TEMP 37.3; O2SAT 99
[2021-07-21 23:13] VITALS: BP 117/64; PULSE 73; RESP 17; TEMP 36; O2SAT 100
[2021-07-22] VITALS: RESP 18
[2021-07-22] MEDS: Levothyroxine Sodium 50 MCG TABLET PO (05:50)
[2021-07-22 07:14] VITALS: BP 131/73; PULSE 74; RESP 16; TEMP 36.4; O2SAT 99
[2021-07-22] MEDS: amLODIPine Besylate 5 MG TABLET PO (08:29)
--- NOTE | 2021-07-22 09:13 | MHC.CM.PN ---
PT WILL NEED LTC PLACEMENT IN A LOCKED DEMENTIA UNIT REFERRALS HAVE BEEN MADE PT CURRENTLY AWAITING COURT DATE FOR GUARDIANSHIP COURT SCHEDULED FOR 07/28/21 PROPOSED GUARDIAN WILL BE AMI BENSON
--- NOTE | 2021-07-22 10:36 | HO.PM.IMPN ---
Subjective Subjective Date of Service: 07/22/21 Interval History: no complaints Cardiovascular Cardiovascular: Reports no additional cardiovascular complaints Respiratory Respiratory: Reports no additional respiratory complaints Physical Exam Vital Signs: Vital Signs: Last Vital Signs Temp 97.5 F 07/22/21 07:14 Pulse 74 07/22/21 07:14 Resp 16 07/22/21 07:14 BP 131/73 07/22/21 07:14 Pulse Ox 99 07/22/21 07:14 O2 Del Method 07/22/21 07:14 BMI result Body Mass Index 21.3 Appearing in no acute distress lung sounds are clear to auscultation heart regular rate rhythm, clear S1, S2 positive bowel sounds, abdomen is soft, nontender neuro patient is alert, confusedf Objective Data Active Medications Acetaminophen (Acetaminophen 325 Mg Tablet) 650 mg PO Q6H PRN PRN Reason: Pain, Mild (Pain Scale 1-3) Amlodipine Besylate (Amlodipine Besylate 5 Mg Tablet) 5 mg PO DAILY [facility]; Protocol Last Admin: 07/22/21 08:29 Dose: 5 mg Documented By: INES Levothyroxine Sodium (Levothyroxine Sodium 50 Mcg Tablet) 50 mcg PO DAILY@0600 [facility] Last Admin: 07/22/21 05:50 Dose: 50 mcg Documented By: ABIOLA Ondansetron HCl (Ondansetron Hcl 4 Mg/2 Ml Vial) 4 mg IVPUSH Q8H PRN PRN Reason: Nausea and Vomiting Pharmacy Consult (Consult Rx Perform Med Rec) 1 each MISCELLANE ONCE PRN PRN Reason: Consult order Labs CBC & Chem 7: 07/20/21 05:22 07/20/21 05:22 Assessment and Plan (1) Stage II pressure ulcer of right buttock: Status: Acute (2) Dementia with behavioral disturbance: Status: Acute (3) Hypertension: Status: Acute (4) Hypothyroidism: Status: Acute Plan 75 year old female with history of HLD, HTN, hypothyroidism, dementia who was brought to the ED by EMS 06/17 after being found wandering on the street. She was seen by psych and deemed not to have capacity to make medical decisions and was admitted to the hospital on 06/29 with plans to pursue guardianship Dementia no behavioral issues at this time does not have capacity to make medical decisions pending guardianship HTN BP is stable continue Norvasc hypothyroidism Continue synthroid 50 mcg, TSH 2.42 Small Stage II pressure ulcer of right buttock, continue local wound care, continue protein supplements and frequent repositioning dvt ppx - ambulation code status - full code requires ongoing hospitalization to obtain guardianship and safe disposition Quality Stroke Does the patient have a stroke diagnosis?: No VTE Prior VTE?: No VTE Risk Level:: Medical - low VTE Device Contraindication: Treatment Not Indicated VTE Drug Contraindication: Treatment Not Indicated
[2021-07-22 15:02] VITALS: BP 119/72; PULSE 86; RESP 16; TEMP 36.5; O2SAT 100
[2021-07-22 15:45] VITALS: BP 114/69; PULSE 92; RESP 18; TEMP 37.2; O2SAT 100
[2021-07-22 16:00] VITALS: BP 119/72; PULSE 86; RESP 16; TEMP 36.5; O2SAT 100
[2021-07-22 23:43] VITALS: BP 115/66; PULSE 78; RESP 18; TEMP 36.5; O2SAT 98
[2021-07-23] MEDS: Levothyroxine Sodium 50 MCG TABLET PO (05:30)
[2021-07-23 07:32] VITALS: BP 133/72; PULSE 67; RESP 18; TEMP 36.4; O2SAT 100
--- NOTE | 2021-07-23 08:41 | P.PNIM_ITS ---
Subjective Subjective Date of Service: 07/23/21 Interval History: no complaints Cardiovascular Cardiovascular: Reports no additional cardiovascular complaints Respiratory Respiratory: Reports no additional respiratory complaints Physical Exam Vital Signs: Vital Signs: Last Vital Signs Temp 97.5 F 07/23/21 07:32 Pulse 67 07/23/21 07:32 Resp 18 07/23/21 07:32 BP 133/72 07/23/21 07:32 Pulse Ox 100 07/23/21 07:32 O2 Del Method 07/23/21 07:32 BMI result Body Mass Index 21.3 Appearing in no acute distress lung sounds are clear to auscultation heart regular rate rhythm, clear S1, S2 positive bowel sounds, abdomen is soft, nontender neuro patient is alert, confusedf Objective Data Active Medications Acetaminophen (Acetaminophen 325 Mg Tablet) 650 mg PO Q6H PRN PRN Reason: Pain, Mild (Pain Scale 1-3) Amlodipine Besylate (Amlodipine Besylate 5 Mg Tablet) 5 mg PO DAILY [facility]; Protocol Last Admin: 07/22/21 08:29 Dose: 5 mg Documented By: INES Levothyroxine Sodium (Levothyroxine Sodium 50 Mcg Tablet) 50 mcg PO DAILY@0600 [facility] Last Admin: 07/23/21 05:30 Dose: 50 mcg Documented By: JANAERISRichard Ondansetron HCl (Ondansetron Hcl 4 Mg/2 Ml Vial) 4 mg IVPUSH Q8H PRN PRN Reason: Nausea and Vomiting Pharmacy Consult (Consult Rx Perform Med Rec) 1 each MISCELLANE ONCE PRN PRN Reason: Consult order Labs CBC & Chem 7: 07/20/21 05:22 07/20/21 05:22 Assessment and Plan (1) Stage II pressure ulcer of right buttock: Status: Acute (2) Dementia with behavioral disturbance: Status: Acute (3) Hypertension: Status: Acute (4) Hypothyroidism: Status: Acute Plan 75 year old female with history of HLD, HTN, hypothyroidism, dementia who was brought to the ED by EMS 06/17 after being found wandering on the street. She was seen by psych and deemed not to have capacity to make medical decisions and was admitted to the hospital on 06/29 with plans to pursue guardianship Dementia no behavioral issues at this time does not have capacity to make medical decisions pending guardianship HTN BP is stable continue Norvasc hypothyroidism Continue synthroid 50 mcg, TSH 2.42 Small Stage II pressure ulcer of right buttock, continue local wound care, continue protein supplements and frequent repositioning dvt ppx - ambulation code status - full code requires ongoing hospitalization to obtain guardianship and safe disposition Quality Stroke Does the patient have a stroke diagnosis?: No VTE Prior VTE?: No VTE Risk Level:: Medical - low VTE Device Contraindication: Treatment Not Indicated VTE Drug Contraindication: Treatment Not Indicated
[2021-07-23] MEDS: amLODIPine Besylate 5 MG TABLET PO (09:43)
[2021-07-23 15:15] VITALS: BP 114/60; PULSE 68; RESP 17; TEMP 36.4; O2SAT 100
[2021-07-23 23:40] VITALS: BP 125/67; PULSE 66; RESP 18; TEMP 36.1; O2SAT 100
[2021-07-24] MEDS: Levothyroxine Sodium 50 MCG TABLET PO (05:31)
[2021-07-24 07:30] VITALS: BP 114/65; PULSE 69; RESP 18; TEMP 36.5; O2SAT 99
[2021-07-24] MEDS: amLODIPine Besylate 5 MG TABLET PO (09:15)
--- NOTE | 2021-07-24 10:00 | P.PNIM_ITS ---
Subjective Subjective Date of Service: 07/24/21 Interval History: no complaints Cardiovascular Cardiovascular: Reports no additional cardiovascular complaints Respiratory Respiratory: Reports no additional respiratory complaints Physical Exam Vital Signs: Vital Signs: Last Vital Signs Temp 97.7 F 07/24/21 07:30 Pulse 69 07/24/21 07:30 Resp 18 07/24/21 07:30 BP 114/65 07/24/21 07:30 Pulse Ox 99 07/24/21 07:30 O2 Del Method 07/24/21 07:30 BMI result Body Mass Index 21.3 Appearing in no acute distress lung sounds are clear to auscultation heart regular rate rhythm, clear S1, S2 positive bowel sounds, abdomen is soft, nontender neuro patient is alert, confusedf Objective Data Active Medications Acetaminophen (Acetaminophen 325 Mg Tablet) 650 mg PO Q6H PRN PRN Reason: Pain, Mild (Pain Scale 1-3) Amlodipine Besylate (Amlodipine Besylate 5 Mg Tablet) 5 mg PO DAILY [facility]; Protocol Last Admin: 07/24/21 09:15 Dose: 5 mg Documented By: TERESA Levothyroxine Sodium (Levothyroxine Sodium 50 Mcg Tablet) 50 mcg PO DAILY@0600 [facility] Last Admin: 07/24/21 05:31 Dose: 50 mcg Documented By: GABY Ondansetron HCl (Ondansetron Hcl 4 Mg/2 Ml Vial) 4 mg IVPUSH Q8H PRN PRN Reason: Nausea and Vomiting Pharmacy Consult (Consult Rx Perform Med Rec) 1 each MISCELLANE ONCE PRN PRN Reason: Consult order Labs CBC & Chem 7: 07/20/21 05:22 07/20/21 05:22 Assessment and Plan (1) Stage II pressure ulcer of right buttock: Status: Acute (2) Dementia with behavioral disturbance: Status: Acute (3) Hypertension: Status: Acute (4) Hypothyroidism: Status: Acute Plan 75 year old female with history of HLD, HTN, hypothyroidism, dementia who was brought to the ED by EMS 06/17 after being found wandering on the street. She was seen by psych and deemed not to have capacity to make medical decisions and was admitted to the hospital on 06/29 with plans to pursue guardianship Dementia no behavioral issues at this time does not have capacity to make medical decisions pending guardianship HTN BP is stable continue Norvasc hypothyroidism Continue synthroid 50 mcg, TSH 2.42 Small Stage II pressure ulcer of right buttock, continue local wound care, continue protein supplements and frequent repositioning dvt ppx - ambulation code status - full code requires ongoing hospitalization to obtain guardianship and safe disposition Quality Stroke Does the patient have a stroke diagnosis?: No VTE Prior VTE?: No VTE Risk Level:: Medical - low VTE Device Contraindication: Treatment Not Indicated VTE Drug Contraindication: Treatment Not Indicated
[2021-07-24 15:48] VITALS: BP 116/67; PULSE 93; RESP 18; TEMP 36.3; O2SAT 99
[2021-07-24 23:27] VITALS: BP 109/69; PULSE 68; RESP 16; TEMP 36.6; O2SAT 98
[2021-07-25] MEDS: Levothyroxine Sodium 50 MCG TABLET PO (05:33)
[2021-07-25 08:00] VITALS: BP 128/66; PULSE 64; RESP 18; TEMP 36.7; O2SAT 99
--- NOTE | 2021-07-25 09:22 | HO.PM.IMPN ---
Subjective Subjective Date of Service: 07/25/21 Interval History: no complaints Cardiovascular Cardiovascular: Reports no additional cardiovascular complaints Respiratory Respiratory: Reports no additional respiratory complaints Physical Exam Vital Signs: Vital Signs: Last Vital Signs Temp 98.0 F 07/25/21 08:00 Pulse 64 07/25/21 08:00 Resp 18 07/25/21 08:00 BP 128/66 07/25/21 08:00 Pulse Ox 99 07/25/21 08:00 O2 Del Method 07/25/21 08:00 BMI result Body Mass Index 21.3 Appearing in no acute distress lung sounds are clear to auscultation heart regular rate rhythm, clear S1, S2 positive bowel sounds, abdomen is soft, nontender neuro patient is alert, confusedf Objective Data Active Medications Acetaminophen (Acetaminophen 325 Mg Tablet) 650 mg PO Q6H PRN PRN Reason: Pain, Mild (Pain Scale 1-3) Amlodipine Besylate (Amlodipine Besylate 5 Mg Tablet) 5 mg PO DAILY [facility]; Protocol Last Admin: 07/24/21 09:15 Dose: 5 mg Documented By: TERESA Levothyroxine Sodium (Levothyroxine Sodium 50 Mcg Tablet) 50 mcg PO DAILY@0600 [facility] Last Admin: 07/25/21 05:33 Dose: 50 mcg Documented By: SABRINA Ondansetron HCl (Ondansetron Hcl 4 Mg/2 Ml Vial) 4 mg IVPUSH Q8H PRN PRN Reason: Nausea and Vomiting Pharmacy Consult (Consult Rx Perform Med Rec) 1 each MISCELLANE ONCE PRN PRN Reason: Consult order Labs CBC & Chem 7: 07/20/21 05:22 07/20/21 05:22 Assessment and Plan (1) Stage II pressure ulcer of right buttock: Status: Acute (2) Dementia with behavioral disturbance: Status: Acute (3) Hypertension: Status: Acute (4) Hypothyroidism: Status: Acute Plan 75 year old female with history of HLD, HTN, hypothyroidism, dementia who was brought to the ED by EMS 06/17 after being found wandering on the street. She was seen by psych and deemed not to have capacity to make medical decisions and was admitted to the hospital on 06/29 with plans to pursue guardianship Dementia no behavioral issues at this time does not have capacity to make medical decisions pending guardianship HTN BP is stable continue Norvasc hypothyroidism Continue synthroid 50 mcg, TSH 2.42 Small Stage II pressure ulcer of right buttock, continue local wound care, continue protein supplements and frequent repositioning dvt ppx - ambulation code status - full code requires ongoing hospitalization to obtain guardianship and safe disposition Quality Stroke Does the patient have a stroke diagnosis?: No VTE Prior VTE?: No VTE Risk Level:: Medical - low VTE Device Contraindication: Treatment Not Indicated VTE Drug Contraindication: Treatment Not Indicated
[2021-07-25] MEDS: amLODIPine Besylate 5 MG TABLET PO (09:54)
--- NOTE | 2021-07-25 12:40 | MHC.CM.PN ---
EMR REVIEWED, PT REMAINS MEDICALLY CLEARED, PT PLEASANT, MED COMPLIANT AND DOES LIKE TO WONDER UNIT, COURT DATE FOR GUARDIANSHIP 07/28/21, PROPOSED GUARDIAN AMI LESLIE CM AWAITING TO HEAR BACK FROM FS TO TYPE OF MH BENEFIT. CM WILL CONT TO FOLLOW D/C NEEDS.
[2021-07-25 15:04] VITALS: BP 120/70; PULSE 82; RESP 20; TEMP 36.7; O2SAT 99
--- NOTE | 2021-07-25 16:03 | MHC.CM.PN ---
PER PHARMACY CONTACT PT HAS HAD [employer] VACCINE X3 WILL PASS ALONG TO SNF'S
[2021-07-25 19:51] VITALS: BP 103/52; PULSE 75; RESP 20; TEMP 36.5; O2SAT 100
[2021-07-25 23:37] VITALS: BP 129/71; PULSE 68; RESP 16; TEMP 36.2; O2SAT 98
[2021-07-26] MEDS: Levothyroxine Sodium 50 MCG TABLET PO (06:28)
[2021-07-26 07:49] VITALS: BP 131/63; PULSE 71; RESP 18; TEMP 36.2; O2SAT 99
[2021-07-26] MEDS: amLODIPine Besylate 5 MG TABLET PO (09:39)
--- NOTE | 2021-07-26 09:59 | HO.PM.IMPN ---
Subjective Subjective Date of Service: 07/26/21 Interval History: no complaints Cardiovascular Cardiovascular: Reports no additional cardiovascular complaints Respiratory Respiratory: Reports no additional respiratory complaints Physical Exam Vital Signs: Vital Signs: Last Vital Signs Temp 97.1 F 07/26/21 07:49 Pulse 71 07/26/21 07:49 Resp 18 07/26/21 07:49 BP 131/63 07/26/21 07:49 Pulse Ox 99 07/26/21 07:49 O2 Del Method 07/26/21 07:49 BMI result Body Mass Index 21.3 Appearing in no acute distress lung sounds are clear to auscultation heart regular rate rhythm, clear S1, S2 positive bowel sounds, abdomen is soft, nontender neuro patient is alert, confusedf Objective Data Active Medications Acetaminophen (Acetaminophen 325 Mg Tablet) 650 mg PO Q6H PRN PRN Reason: Pain, Mild (Pain Scale 1-3) Amlodipine Besylate (Amlodipine Besylate 5 Mg Tablet) 5 mg PO DAILY [facility]; Protocol Last Admin: 07/26/21 09:39 Dose: 5 mg Documented By: VIGNESH Levothyroxine Sodium (Levothyroxine Sodium 50 Mcg Tablet) 50 mcg PO DAILY@0600 [facility] Last Admin: 07/26/21 06:28 Dose: 50 mcg Documented By: SABRINA Ondansetron HCl (Ondansetron Hcl 4 Mg/2 Ml Vial) 4 mg IVPUSH Q8H PRN PRN Reason: Nausea and Vomiting Pharmacy Consult (Consult Rx Perform Med Rec) 1 each MISCELLANE ONCE PRN PRN Reason: Consult order Labs CBC & Chem 7: 07/20/21 05:22 07/20/21 05:22 Assessment and Plan (1) Stage II pressure ulcer of right buttock: Status: Acute (2) Dementia with behavioral disturbance: Status: Acute (3) Hypertension: Status: Acute (4) Hypothyroidism: Status: Acute Plan 75 year old female with history of HLD, HTN, hypothyroidism, dementia who was brought to the ED by EMS 06/17 after being found wandering on the street. She was seen by psych and deemed not to have capacity to make medical decisions and was admitted to the hospital on 06/29 with plans to pursue guardianship Dementia no behavioral issues at this time does not have capacity to make medical decisions pending guardianship HTN BP is stable continue Norvasc hypothyroidism Continue synthroid 50 mcg, TSH 2.42 Small Stage II pressure ulcer of right buttock, continue local wound care, continue protein supplements and frequent repositioning dvt ppx - ambulation code status - full code requires ongoing hospitalization to obtain guardianship and safe disposition Quality Stroke Does the patient have a stroke diagnosis?: No VTE Prior VTE?: No VTE Risk Level:: Medical - low VTE Device Contraindication: Treatment Not Indicated VTE Drug Contraindication: Treatment Not Indicated
[2021-07-26 16:00] VITALS: BP 124/64; PULSE 85; RESP 17; TEMP 36.4; O2SAT 99
[2021-07-26 19:18] VITALS: BP 117/74; PULSE 89; RESP 20; TEMP 36.3; O2SAT 100
[2021-07-26 23:38] VITALS: BP 111/67; PULSE 80; RESP 18; TEMP 36.2; O2SAT 98
[2021-07-27] MEDS: Levothyroxine Sodium 50 MCG TABLET PO (05:17)
[2021-07-27 07:55] VITALS: BP 120/62; PULSE 73; RESP 18; TEMP 36.4; O2SAT 98
[2021-07-27] MEDS: amLODIPine Besylate 5 MG TABLET PO (09:13)
--- NOTE | 2021-07-27 13:18 | HO.PM.IMPN ---
Subjective Subjective Date of Service: 07/27/21 Interval History: a pleasantly confused with no complaints overnight Review of Systems No fever, chills or weakness No chest pain, palpitation No shortness of breath or coughing No abdominal pain, nausea or vomiting No urinary symptoms No any rash or wounds Physical Exam Vital Signs: Vital Signs: Last Vital Signs Temp 97.6 F 07/27/21 07:55 Pulse 73 07/27/21 07:55 Resp 18 07/27/21 07:55 BP 120/62 07/27/21 07:55 Pulse Ox 98 07/27/21 07:55 O2 Del Method 07/27/21 07:55 BMI result Body Mass Index 21.3 Const: Other: Constitutional : Alert, not in distress Neck : Normal inspection, Supple Cardiovascular : no JVP, no lower extremity edema Gastrointestinal: soft, lax, Normal bowel sounds, Non tender Skin : Warm, Dry Neurological : No focal deficit Objective Data Active Medications Acetaminophen (Acetaminophen 325 Mg Tablet) 650 mg PO Q6H PRN PRN Reason: Pain, Mild (Pain Scale 1-3) Amlodipine Besylate (Amlodipine Besylate 5 Mg Tablet) 5 mg PO DAILY [facility]; Protocol Last Admin: 07/27/21 09:13 Dose: 5 mg Documented By: VIGNESH Levothyroxine Sodium (Levothyroxine Sodium 50 Mcg Tablet) 50 mcg PO DAILY@0600 [facility] Last Admin: 07/27/21 05:17 Dose: 50 mcg Documented By: SABRINA Ondansetron HCl (Ondansetron Hcl 4 Mg/2 Ml Vial) 4 mg IVPUSH Q8H PRN PRN Reason: Nausea and Vomiting Pharmacy Consult (Consult Rx Perform Med Rec) 1 each MISCELLANE ONCE PRN PRN Reason: Consult order Labs CBC & Chem 7: 07/20/21 05:22 07/20/21 05:22 Assessment and Plan (1) Dementia with behavioral disturbance: Status: Acute Plan 75 year old female with history of HLD, HTN, hypothyroidism, dementia who was brought to the ED by EMS 06/17 after being found wandering on the street. She was seen by psych and deemed not to have capacity to make medical decisions and was admitted to the hospital on 06/29 with plans to pursue guardianship Dementia no behavioral issues at this time does not have capacity to make medical decisions pending guardianship HTN BP is stable continue Norvasc hypothyroidism Continue synthroid 50 mcg, TSH 2.42 Small Stage II pressure ulcer of right buttock, continue local wound care, continue protein supplements and frequent repositioning dvt ppx - ambulation code status - full code requires ongoing hospitalization to obtain guardianship and safe disposition Quality Stroke Does the patient have a stroke diagnosis?: No VTE Prior VTE?: No VTE Risk Level:: Medical - low VTE Device Contraindication: Treatment Not Indicated VTE Drug Contraindication: Treatment Not Indicated
[2021-07-27 15:39] VITALS: BP 102/60; PULSE 80; RESP 18; TEMP 36.6; O2SAT 99
[2021-07-27 16:00] VITALS: BP 102/60; PULSE 80; RESP 18; TEMP 36.6; O2SAT 99
[2021-07-27 23:20] VITALS: BP 109/63; PULSE 75; RESP 18; TEMP 36.2; O2SAT 98
[2021-07-28] MEDS: Levothyroxine Sodium 50 MCG TABLET PO (05:30)
[2021-07-28] MEDS: amLODIPine Besylate 5 MG TABLET PO (08:53)
--- NOTE | 2021-07-28 12:55 | HO.PM.IMPN ---
Subjective Subjective Date of Service: 07/28/21 Interval History: a pleasantly confused with no complaints overnight Review of Systems No fever, chills or weakness No chest pain, palpitation No shortness of breath or coughing No abdominal pain, nausea or vomiting No urinary symptoms No any rash or wounds Physical Exam Vital Signs: Vital Signs: Last Vital Signs Temp 97.2 F 07/27/21 23:20 Pulse 75 07/27/21 23:20 Resp 18 07/27/21 23:20 BP 109/63 07/27/21 23:20 Pulse Ox 98 07/27/21 23:20 O2 Del Method 07/27/21 23:20 BMI result Body Mass Index 21.3 Const: Other: Constitutional : Alert, not in distress Neck : Normal inspection, Supple Cardiovascular : no JVP, no lower extremity edema Gastrointestinal: soft, lax, Normal bowel sounds, Non tender Skin : Warm, Dry Neurological : No focal deficit Objective Data Active Medications Acetaminophen (Acetaminophen 325 Mg Tablet) 650 mg PO Q6H PRN PRN Reason: Pain, Mild (Pain Scale 1-3) Amlodipine Besylate (Amlodipine Besylate 5 Mg Tablet) 5 mg PO DAILY [facility]; Protocol Last Admin: 07/28/21 08:53 Dose: 5 mg Documented By: COTEMA Levothyroxine Sodium (Levothyroxine Sodium 50 Mcg Tablet) 50 mcg PO DAILY@0600 [facility] Last Admin: 07/28/21 05:30 Dose: 50 mcg Documented By: SABRINA Ondansetron HCl (Ondansetron Hcl 4 Mg/2 Ml Vial) 4 mg IVPUSH Q8H PRN PRN Reason: Nausea and Vomiting Pharmacy Consult (Consult Rx Perform Med Rec) 1 each MISCELLANE ONCE PRN PRN Reason: Consult order Labs CBC & Chem 7: 07/20/21 05:22 07/20/21 05:22 Assessment and Plan (1) Dementia with behavioral disturbance: Status: Acute Plan 75 year old female with history of HLD, HTN, hypothyroidism, dementia who was brought to the ED by EMS 06/17 after being found wandering on the street. She was seen by psych and deemed not to have capacity to make medical decisions and was admitted to the hospital on 06/29 with plans to pursue guardianship Dementia no behavioral issues at this time does not have capacity to make medical decisions pending guardianship HTN BP is stable continue Norvasc hypothyroidism Continue synthroid 50 mcg, TSH 2.42 Small Stage II pressure ulcer of right buttock, continue local wound care, continue protein supplements and frequent repositioning dvt ppx - ambulation code status - full code requires ongoing hospitalization to obtain guardianship and safe disposition Quality Stroke Does the patient have a stroke diagnosis?: No VTE Prior VTE?: No VTE Risk Level:: Medical - low VTE Device Contraindication: Treatment Not Indicated VTE Drug Contraindication: Treatment Not Indicated
--- NOTE | 2021-07-28 14:09 | MHC.CM.PN ---
PER CM DIRECTOR PT DID NOT HAVE COURT FOR GUARDIANSHIP TODAY HOWEVER PLAN FOR COURT TOMORROW 07/29.
[2021-07-28 16:00] VITALS: BP 149/89; PULSE 71; RESP 18; TEMP 36.4; O2SAT 100
[2021-07-29] VITALS: BP 133/75; PULSE 67; RESP 18; TEMP 36.4; O2SAT 99
[2021-07-29] MEDS: Levothyroxine Sodium 50 MCG TABLET PO (05:29)
[2021-07-29 07:45] VITALS: BP 129/66; PULSE 66; RESP 18; TEMP 36.2; O2SAT 99
[2021-07-29] MEDS: amLODIPine Besylate 5 MG TABLET PO (08:58)
--- NOTE | 2021-07-29 11:54 | P.PNIM_ITS ---
Subjective Subjective Date of Service: 07/29/21 Interval History: a pleasantly confused with no complaints overnight Review of Systems No fever, chills or weakness No chest pain, palpitation No shortness of breath or coughing No abdominal pain, nausea or vomiting No urinary symptoms No any rash or wounds Physical Exam Vital Signs: Vital Signs: Last Vital Signs Temp 97.2 F 07/29/21 07:45 Pulse 66 07/29/21 07:45 Resp 18 07/29/21 07:45 BP 129/66 07/29/21 07:45 Pulse Ox 99 07/29/21 07:45 O2 Del Method 07/29/21 07:45 BMI result Body Mass Index 21.3 Const: Other: Constitutional : Alert, not in distress Neck : Normal inspection, Supple Cardiovascular : no JVP, no lower extremity edema Gastrointestinal: soft, lax, Normal bowel sounds, Non tender Skin : Warm, Dry Neurological : No focal deficit Objective Data Active Medications Acetaminophen (Acetaminophen 325 Mg Tablet) 650 mg PO Q6H PRN PRN Reason: Pain, Mild (Pain Scale 1-3) Amlodipine Besylate (Amlodipine Besylate 5 Mg Tablet) 5 mg PO DAILY [facility]; Protocol Last Admin: 07/29/21 08:58 Dose: 5 mg Documented By: COTEMA Levothyroxine Sodium (Levothyroxine Sodium 50 Mcg Tablet) 50 mcg PO DAILY@0600 [facility] Last Admin: 07/29/21 05:29 Dose: 50 mcg Documented By: LUCINDA Ondansetron HCl (Ondansetron Hcl 4 Mg/2 Ml Vial) 4 mg IVPUSH Q8H PRN PRN Reason: Nausea and Vomiting Pharmacy Consult (Consult Rx Perform Med Rec) 1 each MISCELLANE ONCE PRN PRN Reason: Consult order Labs CBC & Chem 7: 07/20/21 05:22 07/20/21 05:22 Assessment and Plan (1) Dementia with behavioral disturbance: Status: Acute Plan 75 year old female with history of HLD, HTN, hypothyroidism, dementia who was brought to the ED by EMS 06/17 after being found wandering on the street. She was seen by psych and deemed not to have capacity to make medical decisions and was admitted to the hospital on 06/29 with plans to pursue guardianship Dementia no behavioral issues at this time does not have capacity to make medical decisions pending guardianship HTN BP is stable continue Norvasc hypothyroidism Continue synthroid 50 mcg, TSH 2.42 Small Stage II pressure ulcer of right buttock, continue local wound care, continue protein supplements and frequent repositioning dvt ppx - ambulation code status - full code requires ongoing hospitalization to obtain guardianship and safe disposition Quality Stroke Does the patient have a stroke diagnosis?: No VTE Prior VTE?: No VTE Risk Level:: Medical - low VTE Device Contraindication: Treatment Not Indicated VTE Drug Contraindication: Treatment Not Indicated
[2021-07-29 15:50] VITALS: BP 131/71; PULSE 87; RESP 18; TEMP 36.1; O2SAT 98
[2021-07-29 23:17] VITALS: BP 118/60; PULSE 65; RESP 18; TEMP 36.2; O2SAT 99
[2021-07-30] MEDS: Levothyroxine Sodium 50 MCG TABLET PO (05:27)
[2021-07-30 08:00] VITALS: BP 143/75; PULSE 68; RESP 18; TEMP 36.1; O2SAT 100
[2021-07-30] MEDS: amLODIPine Besylate 5 MG TABLET PO (09:05)
--- NOTE | 2021-07-30 10:53 | HO.PM.IMPN ---
Subjective Subjective Date of Service: 07/30/21 Interval History: a pleasantly confused with no complaints overnight Review of Systems No fever, chills or weakness No chest pain, palpitation No shortness of breath or coughing No abdominal pain, nausea or vomiting No urinary symptoms No any rash or wounds Physical Exam Vital Signs: Vital Signs: Last Vital Signs Temp 96.9 F 07/30/21 08:00 Pulse 68 07/30/21 08:00 Resp 18 07/30/21 08:00 BP 143/75 H 07/30/21 08:00 Pulse Ox 100 07/30/21 08:00 O2 Del Method 07/30/21 08:00 BMI result Body Mass Index 21.3 Const: Other: Constitutional : Alert, not in distress Neck : Normal inspection, Supple Cardiovascular : no JVP, no lower extremity edema Gastrointestinal: soft, lax, Normal bowel sounds, Non tender Skin : Warm, Dry Neurological : No focal deficit Objective Data Active Medications Acetaminophen (Acetaminophen 325 Mg Tablet) 650 mg PO Q6H PRN PRN Reason: Pain, Mild (Pain Scale 1-3) Amlodipine Besylate (Amlodipine Besylate 5 Mg Tablet) 5 mg PO DAILY [facility]; Protocol Last Admin: 07/30/21 09:05 Dose: 5 mg Documented By: COTEMA Levothyroxine Sodium (Levothyroxine Sodium 50 Mcg Tablet) 50 mcg PO DAILY@0600 [facility] Last Admin: 07/30/21 05:27 Dose: 50 mcg Documented By: LUCINDA Ondansetron HCl (Ondansetron Hcl 4 Mg/2 Ml Vial) 4 mg IVPUSH Q8H PRN PRN Reason: Nausea and Vomiting Pharmacy Consult (Consult Rx Perform Med Rec) 1 each MISCELLANE ONCE PRN PRN Reason: Consult order Labs CBC & Chem 7: 07/20/21 05:22 07/20/21 05:22 Assessment and Plan (1) Dementia with behavioral disturbance: Status: Acute Plan 75 year old female with history of HLD, HTN, hypothyroidism, dementia who was brought to the ED by EMS 06/17 after being found wandering on the street. She was seen by psych and deemed not to have capacity to make medical decisions and was admitted to the hospital on 06/29 with plans to pursue guardianship Dementia no behavioral issues at this time does not have capacity to make medical decisions pending guardianship HTN BP is stable continue Norvasc hypothyroidism Continue synthroid 50 mcg, TSH 2.42 Small Stage II pressure ulcer of right buttock, continue local wound care, continue protein supplements and frequent repositioning dvt ppx - ambulation code status - full code requires ongoing hospitalization to obtain guardianship and safe disposition Quality Stroke Does the patient have a stroke diagnosis?: No VTE Prior VTE?: No VTE Risk Level:: Medical - low VTE Device Contraindication: Treatment Not Indicated VTE Drug Contraindication: Treatment Not Indicated
[2021-07-30] MEDS: polyethylene glycoL 3350 17 GM POWD.PACK PO (12:31)
[2021-07-30 15:24] VITALS: BP 111/66; PULSE 87; RESP 18; TEMP 36.6; O2SAT 98
[2021-07-31] VITALS: BP 118/59; PULSE 84; RESP 17; TEMP 36.7; O2SAT 97
[2021-07-31] MEDS: Levothyroxine Sodium 50 MCG TABLET PO (06:31)
[2021-07-31 07:56] VITALS: BP 126/65; PULSE 68; RESP 16; TEMP 36.5; O2SAT 98
[2021-07-31] MEDS: amLODIPine Besylate 5 MG TABLET PO (09:34)
[2021-07-31] MEDS: polyethylene glycoL 3350 17 GM POWD.PACK PO (09:34)
--- NOTE | 2021-07-31 10:44 | HO.PM.IMPN ---
Subjective Subjective Date of Service: 07/31/21 Interval History: a pleasantly confused with no complaints overnight Reporting a constipation Review of Systems No fever, chills or weakness No chest pain, palpitation No shortness of breath or coughing No abdominal pain, nausea or vomiting No urinary symptoms No any rash or wounds Physical Exam Vital Signs: Vital Signs: Last Vital Signs Temp 97.7 F 07/31/21 07:56 Pulse 68 07/31/21 07:56 Resp 16 07/31/21 07:56 BP 126/65 07/31/21 07:56 Pulse Ox 98 07/31/21 07:56 O2 Del Method 07/31/21 07:56 BMI result Body Mass Index 21.3 Const: Other: Constitutional : Alert, not in distress Neck : Normal inspection, Supple Cardiovascular : no JVP, no lower extremity edema Gastrointestinal: soft, lax, Normal bowel sounds, Non tender Skin : Warm, Dry, stage II pressure ulcer right buttock with no infection Neurological : No focal deficit Objective Data Active Medications Acetaminophen (Acetaminophen 325 Mg Tablet) 650 mg PO Q6H PRN PRN Reason: Pain, Mild (Pain Scale 1-3) Amlodipine Besylate (Amlodipine Besylate 5 Mg Tablet) 5 mg PO DAILY [facility]; Protocol Last Admin: 07/31/21 09:34 Dose: 5 mg Documented By: LA NENA Levothyroxine Sodium (Levothyroxine Sodium 50 Mcg Tablet) 50 mcg PO DAILY@0600 [facility] Last Admin: 07/31/21 06:31 Dose: 50 mcg Documented By: MALGORZATAQC Ondansetron HCl (Ondansetron Hcl 4 Mg/2 Ml Vial) 4 mg IVPUSH Q8H PRN PRN Reason: Nausea and Vomiting Pharmacy Consult (Consult Rx Perform Med Rec) 1 each MISCELLANE ONCE PRN PRN Reason: Consult order Polyethylene Glycol (Polyethylene Glycol 3350 17 Gm Powd.Pack) 17 gm PO DAILY [facility] Last Admin: 07/31/21 09:34 Dose: 17 gm Documented By: LA NENA Labs CBC & Chem 7: 07/20/21 05:22 07/20/21 05:22 Assessment and Plan (1) Dementia with behavioral disturbance: Status: Acute Plan 75 year old female with history of HLD, HTN, hypothyroidism, dementia who was brought to the ED by EMS 06/17 after being found wandering on the street. She was seen by psych and deemed not to have capacity to make medical decisions and was admitted to the hospital on 06/29 with plans to pursue guardianship Dementia no behavioral issues at this time does not have capacity to make medical decisions pending guardianship Constipation Laxatives to give an enema HTN BP is stable continue Norvasc hypothyroidism Continue synthroid 50 mcg, TSH 2.42 Small Stage II pressure ulcer of right buttock, continue local wound care, continue protein supplements and frequent repositioning dvt ppx - ambulation code status - full code requires ongoing hospitalization to obtain guardianship and safe disposition Quality Stroke Does the patient have a stroke diagnosis?: No VTE Prior VTE?: No VTE Risk Level:: Medical - low VTE Device Contraindication: Treatment Not Indicated VTE Drug Contraindication: Treatment Not Indicated
[2021-07-31 15:24] VITALS: BP 114/64; PULSE 77; RESP 18; TEMP 36.8; O2SAT 100
[2021-07-31 23:37] VITALS: BP 123/70; PULSE 72; RESP 18; TEMP 36.2; O2SAT 99
[2021-08-01] MEDS: Levothyroxine Sodium 50 MCG TABLET PO (05:30)
[2021-08-01 07:51] VITALS: BP 121/62; PULSE 60; RESP 16; TEMP 36.4; O2SAT 100
--- NOTE | 2021-08-01 10:04 | HO.PM.IMPN ---
Subjective Subjective Date of Service: 08/01/21 Interval History: a pleasantly confused with no complaints overnight Review of Systems No fever, chills or weakness No chest pain, palpitation No shortness of breath or coughing No abdominal pain, nausea or vomiting No urinary symptoms No any rash or wounds Physical Exam Vital Signs: Vital Signs: Last Vital Signs Temp 97.6 F 08/01/21 07:51 Pulse 60 08/01/21 07:51 Resp 16 08/01/21 07:51 BP 121/62 08/01/21 07:51 Pulse Ox 100 08/01/21 07:51 O2 Del Method 08/01/21 07:51 BMI result Body Mass Index 21.3 Const: Other: Constitutional : Alert, not in distress Neck : Normal inspection, Supple Cardiovascular : no JVP, no lower extremity edema Gastrointestinal: soft, lax, Normal bowel sounds, Non tender Skin : Warm, Dry, stage II pressure ulcer right buttock with no infection Neurological : No focal deficit Objective Data Active Medications Acetaminophen (Acetaminophen 325 Mg Tablet) 650 mg PO Q6H PRN PRN Reason: Pain, Mild (Pain Scale 1-3) Amlodipine Besylate (Amlodipine Besylate 5 Mg Tablet) 5 mg PO DAILY [facility]; Protocol Last Admin: 07/31/21 09:34 Dose: 5 mg Documented By: WALDOEMA Levothyroxine Sodium (Levothyroxine Sodium 50 Mcg Tablet) 50 mcg PO DAILY@0600 [facility] Last Admin: 08/01/21 05:30 Dose: 50 mcg Documented By: LUCINDA Ondansetron HCl (Ondansetron Hcl 4 Mg/2 Ml Vial) 4 mg IVPUSH Q8H PRN PRN Reason: Nausea and Vomiting Pharmacy Consult (Consult Rx Perform Med Rec) 1 each MISCELLANE ONCE PRN PRN Reason: Consult order Polyethylene Glycol (Polyethylene Glycol 3350 17 Gm Powd.Pack) 17 gm PO DAILY [facility] Last Admin: 07/31/21 09:34 Dose: 17 gm Documented By: LA NENA Psyllium Hydrophilic Mucilloid (Psyllium Seed 3.4 Gm Powd.Pack) 3.4 gm PO DAILY [facility] Last Admin: 07/31/21 11:14 Dose: 3.4 gm Documented By: LA NENA Labs CBC & Chem 7: 07/20/21 05:22 07/20/21 05:22 Assessment and Plan (1) Dementia with behavioral disturbance: Status: Acute Plan 75 year old female with history of HLD, HTN, hypothyroidism, dementia who was brought to the ED by EMS 06/17 after being found wandering on the street. She was seen by psych and deemed not to have capacity to make medical decisions and was admitted to the hospital on 06/29 with plans to pursue guardianship Dementia no behavioral issues at this time does not have capacity to make medical decisions pending guardianship Constipation Laxatives to give an enema HTN BP is stable continue Norvasc hypothyroidism Continue synthroid 50 mcg, TSH 2.42 Small Stage II pressure ulcer of right buttock continue local wound care, continue protein supplements and frequent repositioning dvt ppx - ambulation code status - full code requires ongoing hospitalization to obtain guardianship and safe disposition Quality Stroke Does the patient have a stroke diagnosis?: No VTE Prior VTE?: No VTE Risk Level:: Medical - low VTE Device Contraindication: Treatment Not Indicated VTE Drug Contraindication: Treatment Not Indicated
[2021-08-01] MEDS: polyethylene glycoL 3350 17 GM POWD.PACK PO (11:01)
[2021-08-01] MEDS: amLODIPine Besylate 5 MG TABLET PO (11:04)
[2021-08-01 15:15] VITALS: BP 121/66; PULSE 82; RESP 16; TEMP 36.1; O2SAT 100
--- NOTE | 2021-08-01 15:33 | MHC.CM.PN ---
nurse case repairer note electronic memdcial record reviewed along with case disucsed with staff nurse and hospitrené t , court date was for last sunday for guardianship an d guardian tp place and conservatory ship. awaiting for court document s to be sent o us (today is considered a holiday ) anticipate 1-2 more days and we should get the papaerwork per field case manager, clincial updates uploaded to [employer] and [facility] casre manager photo to continue to follow
[2021-08-01 16:00] VITALS: RESP 18
[2021-08-02] VITALS: BP 115/60; PULSE 73; RESP 18; TEMP 36.2; O2SAT 97
[2021-08-02] MEDS: Levothyroxine Sodium 50 MCG TABLET PO (05:22)
[2021-08-02 07:45] VITALS: BP 124/69; PULSE 68; RESP 17; TEMP 36.4; O2SAT 96
[2021-08-02] MEDS: polyethylene glycoL 3350 17 GM POWD.PACK PO (09:12)
[2021-08-02] MEDS: amLODIPine Besylate 5 MG TABLET PO (09:12)
--- NOTE | 2021-08-02 09:37 | HO.PM.IMPN ---
Subjective Subjective Date of Service: 08/02/21 Interval History: a pleasantly confused with no complaints overnight no reported events Review of Systems No fever, chills or weakness No chest pain, palpitation No shortness of breath or coughing No abdominal pain, nausea or vomiting No urinary symptoms No any rash or wounds Physical Exam Vital Signs: Vital Signs: Last Vital Signs Temp 97.6 F 08/02/21 07:45 Pulse 68 08/02/21 07:45 Resp 17 08/02/21 07:45 BP 124/69 08/02/21 07:45 Pulse Ox 96 08/02/21 07:45 O2 Del Method 08/02/21 07:45 BMI result Body Mass Index 21.3 Const: Other: Constitutional : Alert, not in distress Neck : Normal inspection, Supple Cardiovascular : no JVP, no lower extremity edema Gastrointestinal: soft, lax, Normal bowel sounds, Non tender Skin : Warm, Dry, stage II pressure ulcer right buttock with no infection Neurological : No focal deficit Objective Data Active Medications Acetaminophen (Acetaminophen 325 Mg Tablet) 650 mg PO Q6H PRN PRN Reason: Pain, Mild (Pain Scale 1-3) Amlodipine Besylate (Amlodipine Besylate 5 Mg Tablet) 5 mg PO DAILY [facility]; Protocol Last Admin: 08/02/21 09:12 Dose: 5 mg Documented By: JAMES Levothyroxine Sodium (Levothyroxine Sodium 50 Mcg Tablet) 50 mcg PO DAILY@0600 [facility]EDS AT [facility] Last Admin: 08/02/21 05:22 Dose: 50 mcg Documented By: LUCINDA Ondansetron HCl (Ondansetron Hcl 4 Mg/2 Ml Vial) 4 mg IVPUSH Q8H PRN PRN Reason: Nausea and Vomiting Pharmacy Consult (Consult Rx Perform Med Rec) 1 each MISCELLANE ONCE PRN PRN Reason: Consult order Polyethylene Glycol (Polyethylene Glycol 3350 17 Gm Powd.Pack) 17 gm PO DAILY [facility]CLUDE 234 BEDS AT THE [facility] Last Admin: 08/02/21 09:12 Dose: 17 gm Documented By: AJMES Psyllium Hydrophilic Mucilloid (Psyllium Seed 3.4 Gm Powd.Pack) 3.4 gm PO DAILY [facility]CLUDE 234 BEDS AT THE [facility] Last Admin: 08/02/21 09:12 Dose: 3.4 gm Documented By: JAMES Labs CBC & Chem 7: 07/20/21 05:22 07/20/21 05:22 Assessment and Plan (1) Dementia with behavioral disturbance: Status: Acute Plan 75 year old female with history of HLD, HTN, hypothyroidism, dementia who was brought to the ED by EMS 06/17 after being found wandering on the street. She was seen by psych and deemed not to have capacity to make medical decisions and was admitted to the hospital on 06/29 with plans to pursue guardianship Dementia no behavioral issues at this time does not have capacity to make medical decisions pending guardianship Constipation Laxatives to give an enema HTN BP is stable continue Norvasc hypothyroidism Continue synthroid 50 mcg, TSH 2.42 Small Stage II pressure ulcer of right buttock continue local wound care, continue protein supplements and frequent repositioning dvt ppx - ambulation code status - full code requires ongoing hospitalization to obtain guardianship and safe disposition Quality Stroke Does the patient have a stroke diagnosis?: No VTE Prior VTE?: No VTE Risk Level:: Medical - low VTE Device Contraindication: Treatment Not Indicated VTE Drug Contraindication: Treatment Not Indicated
--- NOTE | 2021-08-02 11:22 | MHC.CM.PN ---
Addendum entered by Elena Pantoja 08/04/21 13:01: Julia and Robert do not have court orders as of time of this note. Original Note: Placed call to Artie to inquire if guardianship paperwork from the courts is ready. Awaiting return phone call.
[2021-08-02 16:00] VITALS: BP 127/64; PULSE 81; RESP 18; TEMP 36.7; O2SAT 100
[2021-08-02 23:42] VITALS: BP 117/67; PULSE 76; RESP 16; TEMP 36.9; O2SAT 98
[2021-08-03] MEDS: Levothyroxine Sodium 50 MCG TABLET PO (05:29)
[2021-08-03 08:00] VITALS: BP 125/60; PULSE 61; RESP 16; TEMP 36; O2SAT 100
[2021-08-03] MEDS: polyethylene glycoL 3350 17 GM POWD.PACK PO (11:34)
[2021-08-03] MEDS: amLODIPine Besylate 5 MG TABLET PO (11:34)
[2021-08-03 11:44] VITALS: BP 138/65; PULSE 68; RESP 20; TEMP 36.7; O2SAT 100
--- NOTE | 2021-08-03 13:15 | P.PNIM_ITS ---
Subjective Subjective Date of Service: 08/03/21 Interval History: no complaints Cardiovascular Cardiovascular: Reports no additional cardiovascular complaints Respiratory Respiratory: Reports no additional respiratory complaints Physical Exam Vital Signs: Vital Signs: Last Vital Signs Temp 98.0 F 08/03/21 11:44 Pulse 68 08/03/21 11:44 Resp 20 08/03/21 11:44 BP 138/65 08/03/21 11:44 Pulse Ox 100 08/03/21 11:44 O2 Del Method 08/03/21 11:44 BMI result Body Mass Index 21.3 Const: Other: Constitutional : Alert, not in distress Neck : Normal inspection, Supple Cardiovascular : no JVP, no lower extremity edema Gastrointestinal: soft, lax, Normal bowel sounds, Non tender Skin : Warm, Dry, stage II pressure ulcer right buttock with no infection Neurological : No focal deficit Objective Data Active Medications Acetaminophen (Acetaminophen 325 Mg Tablet) 650 mg PO Q6H PRN PRN Reason: Pain, Mild (Pain Scale 1-3) Amlodipine Besylate (Amlodipine Besylate 5 Mg Tablet) 5 mg PO DAILY [facility]; Protocol Last Admin: 08/03/21 11:34 Dose: 5 mg Documented By: VIGNESH Levothyroxine Sodium (Levothyroxine Sodium 50 Mcg Tablet) 50 mcg PO DAILY@0600 [facility] Last Admin: 08/03/21 05:29 Dose: 50 mcg Documented By: CAMILLA Ondansetron HCl (Ondansetron Hcl 4 Mg/2 Ml Vial) 4 mg IVPUSH Q8H PRN PRN Reason: Nausea and Vomiting Pharmacy Consult (Consult Rx Perform Med Rec) 1 each MISCELLANE ONCE PRN PRN Reason: Consult order Polyethylene Glycol (Polyethylene Glycol 3350 17 Gm Powd.Pack) 17 gm PO DAILY [facility] Last Admin: 08/03/21 11:34 Dose: 17 gm Documented By: VIGNESH Psyllium Hydrophilic Mucilloid (Psyllium Seed 3.4 Gm Powd.Pack) 3.4 gm PO DAILY [facility] Last Admin: 08/03/21 11:34 Dose: 3.4 gm Documented By: VIGNESH Labs CBC & Chem 7: 07/20/21 05:22 07/20/21 05:22 Assessment and Plan (1) Dementia with behavioral disturbance: Status: Acute Plan 75 year old female with history of HLD, HTN, hypothyroidism, dementia who was brought to the ED by EMS 06/17 after being found wandering on the street. She was seen by psych and deemed not to have capacity to make medical decisions and was admitted to the hospital on 06/29 with plans to pursue guardianship Dementia no behavioral issues at this time does not have capacity to make medical decisions pending guardianship Constipation Laxatives to give an enema HTN BP is stable continue Norvasc hypothyroidism Continue synthroid 50 mcg, TSH 2.42 Small Stage II pressure ulcer of right buttock continue local wound care, continue protein supplements and frequent repositioning dvt ppx - ambulation code status - full code requires ongoing hospitalization to obtain guardianship and safe disposition Quality Stroke Does the patient have a stroke diagnosis?: No VTE Prior VTE?: No VTE Risk Level:: Medical - low VTE Device Contraindication: Treatment Not Indicated VTE Drug Contraindication: Treatment Not Indicated
[2021-08-03 15:20] VITALS: BP 128/64; PULSE 72; RESP 18; TEMP 36.5; O2SAT 100
[2021-08-04] VITALS: BP 115/69; PULSE 76; RESP 16; TEMP 36.9; O2SAT 96
[2021-08-04] MEDS: Levothyroxine Sodium 50 MCG TABLET PO (07:21)
[2021-08-04 08:00] VITALS: BP 135/79; PULSE 68; RESP 18; TEMP 36.3; O2SAT 98
--- NOTE | 2021-08-04 10:05 | HO.PM.IMPN ---
Subjective Subjective Date of Service: 08/04/21 Interval History: no complaints Cardiovascular Cardiovascular: Reports no additional cardiovascular complaints Gastrointestinal Gastrointestinal: Reports no additional gastrointestinal complaints Physical Exam Vital Signs: Vital Signs: Last Vital Signs Temp 97.3 F 08/04/21 08:00 Pulse 68 08/04/21 08:00 Resp 18 08/04/21 08:00 BP 135/79 08/04/21 08:00 Pulse Ox 98 08/04/21 08:00 O2 Del Method 08/04/21 08:00 BMI result Body Mass Index 21.3 Const: Other: Constitutional : Alert, not in distress Neck : Normal inspection, Supple Cardiovascular : no JVP, no lower extremity edema Gastrointestinal: soft, lax, Normal bowel sounds, Non tender Skin : Warm, Dry, stage II pressure ulcer right buttock with no infection Neurological : No focal deficit Objective Data Active Medications Acetaminophen (Acetaminophen 325 Mg Tablet) 650 mg PO Q6H PRN PRN Reason: Pain, Mild (Pain Scale 1-3) Amlodipine Besylate (Amlodipine Besylate 5 Mg Tablet) 5 mg PO DAILY [facility]; Protocol Last Admin: 08/03/21 11:34 Dose: 5 mg Documented By: VIGNESH Levothyroxine Sodium (Levothyroxine Sodium 50 Mcg Tablet) 50 mcg PO DAILY@0600 [facility] Last Admin: 08/04/21 07:21 Dose: 50 mcg Documented By: BERNADINE Ondansetron HCl (Ondansetron Hcl 4 Mg/2 Ml Vial) 4 mg IVPUSH Q8H PRN PRN Reason: Nausea and Vomiting Pharmacy Consult (Consult Rx Perform Med Rec) 1 each MISCELLANE ONCE PRN PRN Reason: Consult order Polyethylene Glycol (Polyethylene Glycol 3350 17 Gm Powd.Pack) 17 gm PO DAILY [facility] Last Admin: 08/03/21 11:34 Dose: 17 gm Documented By: VIGNESH Psyllium Hydrophilic Mucilloid (Psyllium Seed 3.4 Gm Powd.Pack) 3.4 gm PO DAILY [facility] Last Admin: 08/03/21 11:34 Dose: 3.4 gm Documented By: VIGNESH Labs CBC & Chem 7: 07/20/21 05:22 07/20/21 05:22 Assessment and Plan (1) Dementia with behavioral disturbance: Status: Acute Plan 75 year old female with history of HLD, HTN, hypothyroidism, dementia who was brought to the ED by EMS 06/17 after being found wandering on the street. She was seen by psych and deemed not to have capacity to make medical decisions and was admitted to the hospital on 06/29 with plans to pursue guardianship Dementia no behavioral issues at this time does not have capacity to make medical decisions pending guardianship Constipation Laxatives to give an enema HTN BP is stable continue Norvasc hypothyroidism Continue synthroid 50 mcg, TSH 2.42 Small Stage II pressure ulcer of right buttock continue local wound care, continue protein supplements and frequent repositioning dvt ppx - ambulation code status - full code requires ongoing hospitalization to obtain guardianship and safe disposition Quality Stroke Does the patient have a stroke diagnosis?: No VTE Prior VTE?: No VTE Risk Level:: Medical - low VTE Device Contraindication: Treatment Not Indicated VTE Drug Contraindication: Treatment Not Indicated
[2021-08-04] MEDS: amLODIPine Besylate 5 MG TABLET PO (11:08)
[2021-08-04] MEDS: polyethylene glycoL 3350 17 GM POWD.PACK PO (11:08)
[2021-08-04 15:18] VITALS: BP 117/70; PULSE 77; RESP 18; TEMP 36.4; O2SAT 96
[2021-08-05] VITALS: BP 121/64; PULSE 74; RESP 18; TEMP 35.8; O2SAT 98
[2021-08-05] MEDS: Levothyroxine Sodium 50 MCG TABLET PO (05:29)
[2021-08-05 07:42] VITALS: BP 119/62; PULSE 66; RESP 17; TEMP 36.3; O2SAT 99
[2021-08-05] MEDS: polyethylene glycoL 3350 17 GM POWD.PACK PO (08:49)
[2021-08-05] MEDS: amLODIPine Besylate 5 MG TABLET PO (08:49)
--- NOTE | 2021-08-05 09:33 | P.PNIM_ITS ---
Subjective Subjective Date of Service: 08/05/21 Interval History: no complaints Cardiovascular Cardiovascular: Reports no additional cardiovascular complaints Gastrointestinal Gastrointestinal: Reports no additional gastrointestinal complaints Physical Exam Vital Signs: Vital Signs: Last Vital Signs Temp 97.4 F 08/05/21 07:42 Pulse 66 08/05/21 07:42 Resp 17 08/05/21 07:42 BP 119/62 08/05/21 07:42 Pulse Ox 99 08/05/21 07:42 O2 Del Method 08/05/21 07:42 BMI result Body Mass Index 21.3 Const: Other: Constitutional : Alert, not in distress Neck : Normal inspection, Supple Cardiovascular : no JVP, no lower extremity edema Gastrointestinal: soft, lax, Normal bowel sounds, Non tender Skin : Warm, Dry, stage II pressure ulcer right buttock with no infection Neurological : No focal deficit Objective Data Active Medications Acetaminophen (Acetaminophen 325 Mg Tablet) 650 mg PO Q6H PRN PRN Reason: Pain, Mild (Pain Scale 1-3) Amlodipine Besylate (Amlodipine Besylate 5 Mg Tablet) 5 mg PO DAILY [facility]; Protocol Last Admin: 08/05/21 08:49 Dose: 5 mg Documented By: OSEAS Levothyroxine Sodium (Levothyroxine Sodium 50 Mcg Tablet) 50 mcg PO DAILY@0600 [facility] Last Admin: 08/05/21 05:29 Dose: 50 mcg Documented By: ABIOLA Ondansetron HCl (Ondansetron Hcl 4 Mg/2 Ml Vial) 4 mg IVPUSH Q8H PRN PRN Reason: Nausea and Vomiting Pharmacy Consult (Consult Rx Perform Med Rec) 1 each MISCELLANE ONCE PRN PRN Reason: Consult order Polyethylene Glycol (Polyethylene Glycol 3350 17 Gm Powd.Pack) 17 gm PO DAILY [facility] Last Admin: 08/05/21 08:49 Dose: 17 gm Documented By: OSEAS Psyllium Hydrophilic Mucilloid (Psyllium Seed 3.4 Gm Powd.Pack) 3.4 gm PO DAILY [facility] Last Admin: 08/05/21 08:49 Dose: 3.4 gm Documented By: OSEAS Labs CBC & Chem 7: 07/20/21 05:22 07/20/21 05:22 Assessment and Plan (1) Dementia with behavioral disturbance: Status: Acute Plan 75 year old female with history of HLD, HTN, hypothyroidism, dementia who was brought to the ED by EMS 06/17 after being found wandering on the street. She was seen by psych and deemed not to have capacity to make medical decisions and was admitted to the hospital on 06/29 with plans to pursue guardianship Dementia no behavioral issues at this time does not have capacity to make medical decisions pending guardianship Constipation Laxatives HTN BP is stable continue Norvasc hypothyroidism Continue synthroid 50 mcg, TSH 2.42 Small Stage II pressure ulcer of right buttock continue local wound care, continue protein supplements and frequent repositioning dvt ppx - ambulation code status - full code requires ongoing hospitalization to obtain guardianship and safe disposition Quality Stroke Does the patient have a stroke diagnosis?: No VTE Prior VTE?: No VTE Risk Level:: Medical - low VTE Device Contraindication: Treatment Not Indicated VTE Drug Contraindication: Treatment Not Indicated
[2021-08-05 11:22] VITALS: BP 122/67; PULSE 75; RESP 17; TEMP 36.2; O2SAT 99
--- NOTE | 2021-08-05 11:28 | MHC.CM.PN ---
PT CONTINUES TO BE MEDICALLY CLEAR AND AWAITING GUARDIANSHIP AND LTC PLACEMENT
--- NOTE | 2021-08-05 13:47 | MHC.CM.PN ---
NURSE MANAGER CUSTOMER NOTE ELECTRONIC MEDICAL RECORD REVIEWED AND CHECKED WITH CASE MANGEMENT Administrative scretary still no paperwork recived from the courts regarding guardian ship rifle case repairer to continue to follow
[2021-08-05 15:50] VITALS: BP 142/66; PULSE 81; RESP 18; TEMP 36.6; O2SAT 96
[2021-08-05 23:56] VITALS: BP 99/58; PULSE 74; RESP 18; TEMP 36.3; O2SAT 98
[2021-08-06] MEDS: Levothyroxine Sodium 50 MCG TABLET PO (07:05)
[2021-08-06 08:17] VITALS: BP 150/81; PULSE 69; RESP 19; TEMP 36.5; O2SAT 98
--- NOTE | 2021-08-06 09:36 | HO.PM.IMPN ---
Subjective Subjective Date of Service: 08/06/21 Interval History: no complaints Cardiovascular Cardiovascular: Reports no additional cardiovascular complaints Gastrointestinal Gastrointestinal: Reports no additional gastrointestinal complaints Physical Exam Vital Signs: Vital Signs: Last Vital Signs Temp 97.7 F 08/06/21 08:17 Pulse 69 08/06/21 08:17 Resp 19 08/06/21 08:17 BP 150/81 H 08/06/21 08:17 Pulse Ox 98 08/06/21 08:17 O2 Del Method 08/06/21 08:17 BMI result Body Mass Index 21.3 Const: Other: Constitutional : Alert, not in distress Neck : Normal inspection, Supple Cardiovascular : no JVP, no lower extremity edema Gastrointestinal: soft, lax, Normal bowel sounds, Non tender Skin : Warm, Dry, stage II pressure ulcer right buttock with no infection Neurological : No focal deficit Objective Data Active Medications Acetaminophen (Acetaminophen 325 Mg Tablet) 650 mg PO Q6H PRN PRN Reason: Pain, Mild (Pain Scale 1-3) Amlodipine Besylate (Amlodipine Besylate 5 Mg Tablet) 5 mg PO DAILY [facility]; Protocol Last Admin: 08/05/21 08:49 Dose: 5 mg Documented By: OSEAS Levothyroxine Sodium (Levothyroxine Sodium 50 Mcg Tablet) 50 mcg PO DAILY@0600 [facility] Last Admin: 08/06/21 07:05 Dose: 50 mcg Documented By: VAUGHN Ondansetron HCl (Ondansetron Hcl 4 Mg/2 Ml Vial) 4 mg IVPUSH Q8H PRN PRN Reason: Nausea and Vomiting Pharmacy Consult (Consult Rx Perform Med Rec) 1 each MISCELLANE ONCE PRN PRN Reason: Consult order Polyethylene Glycol (Polyethylene Glycol 3350 17 Gm Powd.Pack) 17 gm PO DAILY [facility] Last Admin: 08/05/21 08:49 Dose: 17 gm Documented By: OSEAS Psyllium Hydrophilic Mucilloid (Psyllium Seed 3.4 Gm Powd.Pack) 3.4 gm PO DAILY [facility] Last Admin: 08/05/21 08:49 Dose: 3.4 gm Documented By: OSEAS Labs CBC & Chem 7: 07/20/21 05:22 07/20/21 05:22 Assessment and Plan (1) Dementia with behavioral disturbance: Status: Acute Plan 75 year old female with history of HLD, HTN, hypothyroidism, dementia who was brought to the ED by EMS 06/17 after being found wandering on the street. She was seen by psych and deemed not to have capacity to make medical decisions and was admitted to the hospital on 06/29 with plans to pursue guardianship Dementia no behavioral issues at this time does not have capacity to make medical decisions pending guardianship Constipation Laxatives HTN BP is stable continue Norvasc hypothyroidism Continue synthroid 50 mcg, TSH 2.42 Small Stage II pressure ulcer of right buttock continue local wound care, continue protein supplements and frequent repositioning dvt ppx - ambulation code status - full code requires ongoing hospitalization to obtain guardianship and safe disposition Quality Stroke Does the patient have a stroke diagnosis?: No VTE Prior VTE?: No VTE Risk Level:: Medical - low VTE Device Contraindication: Treatment Not Indicated VTE Drug Contraindication: Treatment Not Indicated
[2021-08-06] MEDS: polyethylene glycoL 3350 17 GM POWD.PACK PO (10:01)
[2021-08-06] MEDS: amLODIPine Besylate 5 MG TABLET PO (10:01)
[2021-08-06 15:23] VITALS: BP 121/65; PULSE 80; RESP 18; TEMP 36.7; O2SAT 97
[2021-08-06 23:44] VITALS: BP 116/58; PULSE 70; RESP 18; TEMP 36.3; O2SAT 98
[2021-08-07] MEDS: Levothyroxine Sodium 50 MCG TABLET PO (05:47)
--- NOTE | 2021-08-07 07:23 | P.PNIM_ITS ---
Subjective Subjective Date of Service: 08/07/21 Interval History: no complaints Cardiovascular Cardiovascular: Reports no additional cardiovascular complaints Gastrointestinal Gastrointestinal: Reports no additional gastrointestinal complaints Physical Exam Vital Signs: Vital Signs: Last Vital Signs Temp 97.3 F 08/06/21 23:44 Pulse 70 08/06/21 23:44 Resp 18 08/06/21 23:44 BP 116/58 L 08/06/21 23:44 Pulse Ox 98 08/06/21 23:44 O2 Del Method 08/06/21 23:44 BMI result Body Mass Index 21.3 Const: Other: Constitutional : Alert, not in distress Neck : Normal inspection, Supple Cardiovascular : no JVP, no lower extremity edema Gastrointestinal: soft, lax, Normal bowel sounds, Non tender Skin : Warm, Dry, stage II pressure ulcer right buttock with no infection Neurological : No focal deficit Objective Data Active Medications Acetaminophen (Acetaminophen 325 Mg Tablet) 650 mg PO Q6H PRN PRN Reason: Pain, Mild (Pain Scale 1-3) Amlodipine Besylate (Amlodipine Besylate 5 Mg Tablet) 5 mg PO DAILY [facility]; Protocol Last Admin: 08/06/21 10:01 Dose: 5 mg Documented By: TERESA Levothyroxine Sodium (Levothyroxine Sodium 50 Mcg Tablet) 50 mcg PO DAILY@0600 [facility] Last Admin: 08/07/21 05:47 Dose: 50 mcg Documented By: JOHN Ondansetron HCl (Ondansetron Hcl 4 Mg/2 Ml Vial) 4 mg IVPUSH Q8H PRN PRN Reason: Nausea and Vomiting Pharmacy Consult (Consult Rx Perform Med Rec) 1 each MISCELLANE ONCE PRN PRN Reason: Consult order Polyethylene Glycol (Polyethylene Glycol 3350 17 Gm Powd.Pack) 17 gm PO DAILY [facility] Last Admin: 08/06/21 10:01 Dose: 17 gm Documented By: TERESA Psyllium Hydrophilic Mucilloid (Psyllium Seed 3.4 Gm Powd.Pack) 3.4 gm PO DAILY [facility] Last Admin: 08/06/21 10:01 Dose: 3.4 gm Documented By: TERESA Labs CBC & Chem 7: 07/20/21 05:22 07/20/21 05:22 Assessment and Plan (1) Dementia with behavioral disturbance: Status: Acute Plan 75 year old female with history of HLD, HTN, hypothyroidism, dementia who was brought to the ED by EMS 06/17 after being found wandering on the street. She was seen by psych and deemed not to have capacity to make medical decisions and was admitted to the hospital on 06/29 with plans to pursue guardianship Dementia no behavioral issues at this time does not have capacity to make medical decisions pending guardianship Constipation Laxatives HTN BP is stable continue Norvasc hypothyroidism Continue synthroid 50 mcg, TSH 2.42 Small Stage II pressure ulcer of right buttock continue local wound care, continue protein supplements and frequent repositioning dvt ppx - ambulation code status - full code requires ongoing hospitalization to obtain guardianship and safe disposition Quality Stroke Does the patient have a stroke diagnosis?: No VTE Prior VTE?: No VTE Risk Level:: Medical - low VTE Device Contraindication: Treatment Not Indicated VTE Drug Contraindication: Treatment Not Indicated
[2021-08-07 08:00] VITALS: BP 125/64; PULSE 76; RESP 16; TEMP 36.7; O2SAT 98
[2021-08-07] MEDS: polyethylene glycoL 3350 17 GM POWD.PACK PO (08:19)
[2021-08-07] MEDS: amLODIPine Besylate 5 MG TABLET PO (08:19)
--- NOTE | 2021-08-07 14:29 | PC.NURSE ---
safety and fall precautions in place. camera in room d/t risk of elopement. pt spent most of shift out of bed ambulating in room and [place] and sitting outside near nurses station. call [facility] within reach.
[2021-08-07 16:00] VITALS: BP 115/69; PULSE 80; RESP 18; TEMP 37.6; O2SAT 98
[2021-08-07 23:49] VITALS: BP 117/62; PULSE 76; RESP 18; TEMP 36.1; O2SAT 99
[2021-08-08] MEDS: Levothyroxine Sodium 50 MCG TABLET PO (06:37)
[2021-08-08 07:48] VITALS: BP 146/76; PULSE 71; RESP 16; TEMP 36.2; O2SAT 98
[2021-08-08] MEDS: polyethylene glycoL 3350 17 GM POWD.PACK PO (08:05)
[2021-08-08] MEDS: amLODIPine Besylate 5 MG TABLET PO (08:05)
--- NOTE | 2021-08-08 10:20 | P.PNIM_ITS ---
Subjective Subjective Date of Service: 08/08/21 Interval History: no complaints Cardiovascular Cardiovascular: Reports no additional cardiovascular complaints Gastrointestinal Gastrointestinal: Reports no additional gastrointestinal complaints Physical Exam Vital Signs: Vital Signs: Last Vital Signs Temp 97.2 F 08/08/21 07:48 Pulse 71 08/08/21 07:48 Resp 16 08/08/21 07:48 BP 146/76 H 08/08/21 07:48 Pulse Ox 98 08/08/21 07:48 O2 Del Method 08/08/21 07:48 BMI result Body Mass Index 21.3 Const: Other: Constitutional : Alert, not in distress Neck : Normal inspection, Supple Cardiovascular : no JVP, no lower extremity edema Gastrointestinal: soft, lax, Normal bowel sounds, Non tender Skin : Warm, Dry, stage II pressure ulcer right buttock with no infection Neurological : No focal deficit Objective Data Active Medications Acetaminophen (Acetaminophen 325 Mg Tablet) 650 mg PO Q6H PRN PRN Reason: Pain, Mild (Pain Scale 1-3) Amlodipine Besylate (Amlodipine Besylate 5 Mg Tablet) 5 mg PO DAILY [facility]; Protocol Last Admin: 08/08/21 08:05 Dose: 5 mg Documented By: INES Levothyroxine Sodium (Levothyroxine Sodium 50 Mcg Tablet) 50 mcg PO DAILY@0600 [facility] Last Admin: 08/08/21 06:37 Dose: 50 mcg Documented By: VAUGHN Ondansetron HCl (Ondansetron Hcl 4 Mg/2 Ml Vial) 4 mg IVPUSH Q8H PRN PRN Reason: Nausea and Vomiting Pharmacy Consult (Consult Rx Perform Med Rec) 1 each MISCELLANE ONCE PRN PRN Reason: Consult order Polyethylene Glycol (Polyethylene Glycol 3350 17 Gm Powd.Pack) 17 gm PO DAILY [facility] Last Admin: 08/08/21 08:05 Dose: 17 gm Documented By: INES Psyllium Hydrophilic Mucilloid (Psyllium Seed 3.4 Gm Powd.Pack) 3.4 gm PO DAILY [facility] Last Admin: 08/08/21 08:05 Dose: 3.4 gm Documented By: INES Labs CBC & Chem 7: 07/20/21 05:22 07/20/21 05:22 Assessment and Plan (1) Dementia with behavioral disturbance: Status: Acute Plan 75 year old female with history of HLD, HTN, hypothyroidism, dementia who was brought to the ED by EMS 06/17 after being found wandering on the street. She was seen by psych and deemed not to have capacity to make medical decisions and was admitted to the hospital on 06/29 with plans to pursue guardianship Dementia no behavioral issues at this time does not have capacity to make medical decisions pending guardianship Constipation Laxatives HTN BP is stable continue Norvasc hypothyroidism Continue synthroid 50 mcg, TSH 2.42 Small Stage II pressure ulcer of right buttock continue local wound care, continue protein supplements and frequent repositioning dvt ppx - ambulation code status - full code requires ongoing hospitalization to obtain guardianship and safe disposition Quality Stroke Does the patient have a stroke diagnosis?: No VTE Prior VTE?: No VTE Risk Level:: Medical - low VTE Device Contraindication: Treatment Not Indicated VTE Drug Contraindication: Treatment Not Indicated
--- NOTE | 2021-08-08 14:51 | MHC.CM.PN ---
EMR REVIEWED, PT REMAINS PLEASANT AND COMPLIANT W/MEDS AND MEALS, CM DIRECTOR STILL AWAITING GUARDIANSHIP PAPERWORK FROM [facility]ARING LAST WEEK ON 08/05/21. CM WILL CONT TO [facility] D/C NEEDS FOR LTC PLACEMENT,
[2021-08-08 15:54] VITALS: BP 117/63; PULSE 72; RESP 18; TEMP 36.6; O2SAT 98
[2021-08-08 23:33] VITALS: BP 106/60; PULSE 70; RESP 18; TEMP 36.1; O2SAT 98
[2021-08-09] VITALS: RESP 18
[2021-08-09] MEDS: Levothyroxine Sodium 50 MCG TABLET PO (06:43)
[2021-08-09 07:45] VITALS: BP 131/85; PULSE 68; RESP 16; TEMP 36.9; O2SAT 100
[2021-08-09] MEDS: amLODIPine Besylate 5 MG TABLET PO (08:09)
[2021-08-09] MEDS: polyethylene glycoL 3350 17 GM POWD.PACK PO (08:09)
--- NOTE | 2021-08-09 09:05 | HO.PM.IMPN ---
Subjective Subjective Date of Service: 08/09/21 Interval History: no complaints Cardiovascular Cardiovascular: Reports no additional cardiovascular complaints Gastrointestinal Gastrointestinal: Reports no additional gastrointestinal complaints Physical Exam Vital Signs: Vital Signs: Last Vital Signs Temp 98.5 F 08/09/21 07:45 Pulse 68 08/09/21 07:45 Resp 16 08/09/21 07:45 BP 131/85 08/09/21 07:45 Pulse Ox 100 08/09/21 07:45 O2 Del Method 08/09/21 07:45 BMI result Body Mass Index 21.3 Const: Other: Constitutional : Alert, not in distress Neck : Normal inspection, Supple Cardiovascular : no JVP, no lower extremity edema Gastrointestinal: soft, lax, Normal bowel sounds, Non tender Skin : Warm, Dry, stage II pressure ulcer right buttock with no infection Neurological : No focal deficit Objective Data Active Medications Acetaminophen (Acetaminophen 325 Mg Tablet) 650 mg PO Q6H PRN PRN Reason: Pain, Mild (Pain Scale 1-3) Amlodipine Besylate (Amlodipine Besylate 5 Mg Tablet) 5 mg PO DAILY [facility]; Protocol Last Admin: 08/09/21 08:09 Dose: 5 mg Documented By: GLENN Levothyroxine Sodium (Levothyroxine Sodium 50 Mcg Tablet) 50 mcg PO DAILY@0600 [facility] Last Admin: 08/09/21 06:43 Dose: 50 mcg Documented By: SABRINA Ondansetron HCl (Ondansetron Hcl 4 Mg/2 Ml Vial) 4 mg IVPUSH Q8H PRN PRN Reason: Nausea and Vomiting Pharmacy Consult (Consult Rx Perform Med Rec) 1 each MISCELLANE ONCE PRN PRN Reason: Consult order Polyethylene Glycol (Polyethylene Glycol 3350 17 Gm Powd.Pack) 17 gm PO DAILY [facility] Last Admin: 08/09/21 08:09 Dose: 17 gm Documented By: GLENN Psyllium Hydrophilic Mucilloid (Psyllium Seed 3.4 Gm Powd.Pack) 3.4 gm PO DAILY [facility] Last Admin: 08/09/21 08:09 Dose: 3.4 gm Documented By: GLENN Labs CBC & Chem 7: 07/20/21 05:22 07/20/21 05:22 Assessment and Plan (1) Dementia with behavioral disturbance: Status: Acute Plan 75 year old female with history of HLD, HTN, hypothyroidism, dementia who was brought to the ED by EMS 06/17 after being found wandering on the street. She was seen by psych and deemed not to have capacity to make medical decisions and was admitted to the hospital on 06/29 with plans to pursue guardianship Dementia no behavioral issues at this time does not have capacity to make medical decisions pending guardianship Constipation Laxatives HTN BP is stable continue Norvasc hypothyroidism Continue synthroid 50 mcg, TSH 2.42 Small Stage II pressure ulcer of right buttock continue local wound care, continue protein supplements and frequent repositioning dvt ppx - ambulation code status - full code requires ongoing hospitalization to obtain guardianship and safe disposition Quality Stroke Does the patient have a stroke diagnosis?: No VTE Prior VTE?: No VTE Risk Level:: Medical - low VTE Device Contraindication: Treatment Not Indicated VTE Drug Contraindication: Treatment Not Indicated
[2021-08-09 11:52] VITALS: BP 119/59; PULSE 80; RESP 17; TEMP 36.4; O2SAT 98
[2021-08-09 23:43] VITALS: BP 102/55; PULSE 79; RESP 18; TEMP 36.3; O2SAT 97
[2021-08-10 07:58] VITALS: BP 114/63; PULSE 71; RESP 16; TEMP 36.4; O2SAT 100
[2021-08-10] MEDS: polyethylene glycoL 3350 17 GM POWD.PACK PO (08:26)
[2021-08-10] MEDS: amLODIPine Besylate 5 MG TABLET PO (08:26)
--- NOTE | 2021-08-10 13:00 | P.PNIM_ITS ---
Subjective Subjective Date of Service: 08/10/21 Interval History: a pleasantly confused with no complaints overnight no reported events Review of Systems No fever, chills or weakness No chest pain, palpitation No shortness of breath or coughing No abdominal pain, nausea or vomiting No urinary symptoms No any rash or wounds Physical Exam Vital Signs: Vital Signs: Last Vital Signs Temp 97.5 F 08/10/21 07:58 Pulse 71 08/10/21 07:58 Resp 16 08/10/21 07:58 BP 114/63 08/10/21 07:58 Pulse Ox 100 08/10/21 07:58 O2 Del Method 08/10/21 07:58 BMI result Body Mass Index 21.3 Const: Other: Constitutional : Alert, not in distress Neck : Normal inspection, Supple Cardiovascular : no JVP, no lower extremity edema Gastrointestinal: soft, lax, Normal bowel sounds, Non tender Skin : Warm, Dry, stage II pressure ulcer right buttock with no infection Neurological : No focal deficit Objective Data Active Medications Acetaminophen (Acetaminophen 325 Mg Tablet) 650 mg PO Q6H PRN PRN Reason: Pain, Mild (Pain Scale 1-3) Amlodipine Besylate (Amlodipine Besylate 5 Mg Tablet) 5 mg PO DAILY [facility]; Protocol Last Admin: 08/10/21 08:26 Dose: 5 mg Documented By: INES Levothyroxine Sodium (Levothyroxine Sodium 50 Mcg Tablet) 50 mcg PO DAILY@0600 [facility] Last Admin: 08/10/21 05:12 Dose: Not Given Documented By: BARBARA Non-Admin Reason: Patient Refused Ondansetron HCl (Ondansetron Hcl 4 Mg/2 Ml Vial) 4 mg IVPUSH Q8H PRN PRN Reason: Nausea and Vomiting Pharmacy Consult (Consult Rx Perform Med Rec) 1 each MISCELLANE ONCE PRN PRN Reason: Consult order Polyethylene Glycol (Polyethylene Glycol 3350 17 Gm Powd.Pack) 17 gm PO DAILY [facility] Last Admin: 08/10/21 08:26 Dose: 17 gm Documented By: INES Psyllium Hydrophilic Mucilloid (Psyllium Seed 3.4 Gm Powd.Pack) 3.4 gm PO DAILY [facility] Last Admin: 08/10/21 08:26 Dose: 3.4 gm Documented By: INES Labs CBC & Chem 7: 07/20/21 05:22 07/20/21 05:22 Assessment and Plan (1) Dementia with behavioral disturbance: Status: Acute Plan 75 year old female with history of HLD, HTN, hypothyroidism, dementia who was brought to the ED by EMS 06/17 after being found wandering on the street. She was seen by psych and deemed not to have capacity to make medical decisions and was admitted to the hospital on 06/29 with plans to pursue guardianship Dementia no behavioral issues at this time does not have capacity to make medical decisions pending guardianship Constipation Laxatives HTN BP is stable continue Norvasc hypothyroidism Continue synthroid 50 mcg, TSH 2.42 Small Stage II pressure ulcer of right buttock continue local wound care, continue protein supplements and frequent repositioning dvt ppx - ambulation code status - full code requires ongoing hospitalization to obtain guardianship and safe disposition Quality Stroke Does the patient have a stroke diagnosis?: No VTE Prior VTE?: No VTE Risk Level:: Medical - low VTE Device Contraindication: Treatment Not Indicated VTE Drug Contraindication: Treatment Not Indicated
[2021-08-10 15:49] VITALS: BP 115/74; PULSE 94; RESP 16; TEMP 36.4; O2SAT 99
[2021-08-10 23:51] VITALS: BP 120/66; PULSE 69; RESP 18; TEMP 36.4; O2SAT 100
[2021-08-11] MEDS: Levothyroxine Sodium 50 MCG TABLET PO (05:52)
[2021-08-11 07:43] VITALS: BP 129/67; PULSE 75; RESP 18; TEMP 36.1; O2SAT 99
[2021-08-11] MEDS: amLODIPine Besylate 5 MG TABLET PO (09:34)
[2021-08-11] MEDS: polyethylene glycoL 3350 17 GM POWD.PACK PO (09:34)
--- NOTE | 2021-08-11 11:57 | P.PNIM_ITS ---
Subjective Subjective Date of Service: 08/11/21 Interval History: a pleasantly confused with no complaints overnight no reported events laying comfortable in her bed Review of Systems No fever, chills or weakness No chest pain, palpitation No shortness of breath or coughing No abdominal pain, nausea or vomiting No urinary symptoms No any rash or wounds Physical Exam Vital Signs: Vital Signs: Last Vital Signs Temp 97 F 08/11/21 07:43 Pulse 75 08/11/21 07:43 Resp 18 08/11/21 07:43 BP 129/67 08/11/21 07:43 Pulse Ox 99 08/11/21 07:43 O2 Del Method 08/11/21 07:43 BMI result Body Mass Index 21.3 Const: Other: Constitutional : Alert, not in distress Neck : Normal inspection, Supple Cardiovascular : no JVP, no lower extremity edema Gastrointestinal: soft, lax, Normal bowel sounds, Non tender Skin : Warm, Dry, stage II pressure ulcer right buttock with no infection Neurological : No focal deficit Objective Data Active Medications Acetaminophen (Acetaminophen 325 Mg Tablet) 650 mg PO Q6H PRN PRN Reason: Pain, Mild (Pain Scale 1-3) Amlodipine Besylate (Amlodipine Besylate 5 Mg Tablet) 5 mg PO DAILY [facility]; Protocol Last Admin: 08/11/21 09:34 Dose: 5 mg Documented By: INES Levothyroxine Sodium (Levothyroxine Sodium 50 Mcg Tablet) 50 mcg PO DAILY@0600 [facility] Last Admin: 08/11/21 05:52 Dose: 50 mcg Documented By: SABRINA Ondansetron HCl (Ondansetron Hcl 4 Mg/2 Ml Vial) 4 mg IVPUSH Q8H PRN PRN Reason: Nausea and Vomiting Pharmacy Consult (Consult Rx Perform Med Rec) 1 each MISCELLANE ONCE PRN PRN Reason: Consult order Polyethylene Glycol (Polyethylene Glycol 3350 17 Gm Powd.Pack) 17 gm PO DAILY [facility] Last Admin: 08/11/21 09:34 Dose: 17 gm Documented By: INES Psyllium Hydrophilic Mucilloid (Psyllium Seed 3.4 Gm Powd.Pack) 3.4 gm PO DAILY [facility] Last Admin: 08/11/21 09:34 Dose: 3.4 gm Documented By: INES Labs CBC & Chem 7: 07/20/21 05:07/20/21 05:22 Assessment and Plan (1) Dementia with behavioral disturbance: Status: Acute Plan 75 year old female with history of HLD, HTN, hypothyroidism, dementia who was brought to the ED by EMS 06/17 after being found wandering on the street. She was seen by psych and deemed not to have capacity to make medical decisions and was admitted to the hospital on 06/29 with plans to pursue guardianship Dementia no behavioral issues at this time does not have capacity to make medical decisions pending guardianship Constipation Laxatives HTN BP is stable continue Norvasc hypothyroidism Continue synthroid 50 mcg, TSH 2.42 Small Stage II pressure ulcer of right buttock continue local wound care, continue protein supplements and frequent repositioning dvt ppx - ambulation code status - full code requires ongoing hospitalization to obtain guardianship and safe disposition Quality Stroke Does the patient have a stroke diagnosis?: No VTE Prior VTE?: No VTE Risk Level:: Medical - low VTE Device Contraindication: Treatment Not Indicated VTE Drug Contraindication: Treatment Not Indicated
[2021-08-11 15:14] VITALS: BP 118/67; PULSE 96; RESP 18; TEMP 36.5; O2SAT 100
--- NOTE | 2021-08-11 15:20 | MHC.CM.PN ---
TEMPORARY GUARDIANSHIP PAPERS UPLOADED INTO [employer] AND A COPY NOW IN PATIENT CHART
[2021-08-11 23:25] VITALS: BP 132/72; PULSE 66; RESP 17; TEMP 36.1; O2SAT 99
[2021-08-11 23:30] VITALS: BP 107/67; PULSE 82; RESP 18; TEMP 37.4; O2SAT 100
[2021-08-12] VITALS: RESP 18
[2021-08-12] MEDS: Levothyroxine Sodium 50 MCG TABLET PO (05:26)
[2021-08-12 07:28] VITALS: BP 143/70; PULSE 68; RESP 16; TEMP 36.2; O2SAT 100
[2021-08-12] MEDS: amLODIPine Besylate 5 MG TABLET PO (10:18)
[2021-08-12] MEDS: polyethylene glycoL 3350 17 GM POWD.PACK PO (10:19)
[2021-08-12 11:24] VITALS: BP 121/58; PULSE 69; RESP 15; TEMP 36.1; O2SAT 100
--- NOTE | 2021-08-12 11:55 | P.PNIM_ITS ---
Subjective Subjective Date of Service: 08/12/21 Interval History: a pleasantly confused with no complaints overnight no reported events laying comfortable in her bed Review of Systems No fever, chills or weakness No chest pain, palpitation No shortness of breath or coughing No abdominal pain, nausea or vomiting No urinary symptoms No any rash or wounds Physical Exam Vital Signs: Vital Signs: Last Vital Signs Temp 96.9 F 08/12/21 11:24 Pulse 69 08/12/21 11:24 Resp 15 08/12/21 11:24 BP 121/58 L 08/12/21 11:24 Pulse Ox 100 08/12/21 11:24 O2 Del Method 08/12/21 11:24 BMI result Body Mass Index 21.3 Const: Other: Constitutional : Alert, not in distress Neck : Normal inspection, Supple Cardiovascular : no JVP, no lower extremity edema Gastrointestinal: soft, lax, Normal bowel sounds, Non tender Skin : Warm, Dry, stage II pressure ulcer right buttock with no infection Neurological : No focal deficit Objective Data Active Medications Acetaminophen (Acetaminophen 325 Mg Tablet) 650 mg PO Q6H PRN PRN Reason: Pain, Mild (Pain Scale 1-3) Amlodipine Besylate (Amlodipine Besylate 5 Mg Tablet) 5 mg PO DAILY [facility]; Protocol Last Admin: 08/12/21 10:18 Dose: 5 mg Documented By: LEON Levothyroxine Sodium (Levothyroxine Sodium 50 Mcg Tablet) 50 mcg PO DAILY@0600 [facility] Last Admin: 08/12/21 05:26 Dose: 50 mcg Documented By: SABRINA Ondansetron HCl (Ondansetron Hcl 4 Mg/2 Ml Vial) 4 mg IVPUSH Q8H PRN PRN Reason: Nausea and Vomiting Pharmacy Consult (Consult Rx Perform Med Rec) 1 each MISCELLANE ONCE PRN PRN Reason: Consult order Polyethylene Glycol (Polyethylene Glycol 3350 17 Gm Powd.Pack) 17 gm PO DAILY [facility] Last Admin: 08/12/21 10:19 Dose: 17 gm Documented By: LEON Psyllium Hydrophilic Mucilloid (Psyllium Seed 3.4 Gm Powd.Pack) 3.4 gm PO DAILY [facility] Last Admin: 08/12/21 10:19 Dose: 3.4 gm Documented By: LEON Labs CBC & Chem 7: 07/20/21 05:22 07/20/21 05:22 Assessment and Plan (1) Dementia with behavioral disturbance: Status: Acute Plan 75 year old female with history of HLD, HTN, hypothyroidism, dementia who was brought to the ED by EMS 06/17 after being found wandering on the street. She was seen by psych and deemed not to have capacity to make medical decisions and was admitted to the hospital on 06/29 with plans to pursue guardianship Dementia no behavioral issues at this time does not have capacity to make medical decisions pending guardianship Constipation Laxatives HTN BP is stable continue Norvasc hypothyroidism Continue synthroid 50 mcg, TSH 2.42 Small Stage II pressure ulcer of right buttock continue local wound care, continue protein supplements and frequent repositioning dvt ppx - ambulation code status - full code requires ongoing hospitalization to obtain guardianship and safe disposition Quality Stroke Does the patient have a stroke diagnosis?: No VTE Prior VTE?: No VTE Risk Level:: Medical - low VTE Device Contraindication: Treatment Not Indicated VTE Drug Contraindication: Treatment Not Indicated
[2021-08-12 16:00] VITALS: BP 108/60; PULSE 74; RESP 18; TEMP 36.4
[2021-08-12 23:30] VITALS: BP 108/57; PULSE 65; RESP 17; TEMP 36.6; O2SAT 98
[2021-08-13] MEDS: Levothyroxine Sodium 50 MCG TABLET PO (06:28)
[2021-08-13 08:00] VITALS: BP 137/69; PULSE 64; RESP 16; TEMP 36.6; O2SAT 100
[2021-08-13] MEDS: amLODIPine Besylate 5 MG TABLET PO (09:23)
[2021-08-13] MEDS: polyethylene glycoL 3350 17 GM POWD.PACK PO (09:23)
--- NOTE | 2021-08-13 11:03 | P.PNIM_ITS ---
Subjective Subjective Date of Service: 08/13/21 Interval History: laying comfortable in her bed a pleasantly confused with no complaints overnight no reported events Review of Systems No fever, chills or weakness No chest pain, palpitation No shortness of breath or coughing No abdominal pain, nausea or vomiting No urinary symptoms No any rash or wounds Physical Exam Vital Signs: Vital Signs: Last Vital Signs Temp 97.9 F 08/13/21 08:00 Pulse 64 08/13/21 08:00 Resp 16 08/13/21 08:00 BP 137/69 08/13/21 08:00 Pulse Ox 100 08/13/21 08:00 O2 Del Method 08/13/21 08:00 BMI result Body Mass Index 21.3 Const: Other: Constitutional : Alert, not in distress Neck : Normal inspection, Supple Cardiovascular : no JVP, no lower extremity edema Gastrointestinal: soft, lax, Normal bowel sounds, Non tender Skin : Warm, Dry, stage II pressure ulcer right buttock with no infection Neurological : No focal deficit Objective Data Active Medications Acetaminophen (Acetaminophen 325 Mg Tablet) 650 mg PO Q6H PRN PRN Reason: Pain, Mild (Pain Scale 1-3) Amlodipine Besylate (Amlodipine Besylate 5 Mg Tablet) 5 mg PO DAILY [facility]; Protocol Last Admin: 08/13/21 09:23 Dose: 5 mg Documented By: RENNY Levothyroxine Sodium (Levothyroxine Sodium 50 Mcg Tablet) 50 mcg PO DAILY@0600 [facility] Last Admin: 08/13/21 06:28 Dose: 50 mcg Documented By: SABRINA Ondansetron HCl (Ondansetron Hcl 4 Mg/2 Ml Vial) 4 mg IVPUSH Q8H PRN PRN Reason: Nausea and Vomiting Pharmacy Consult (Consult Rx Perform Med Rec) 1 each MISCELLANE ONCE PRN PRN Reason: Consult order Polyethylene Glycol (Polyethylene Glycol 3350 17 Gm Powd.Pack) 17 gm PO DAILY [facility] Last Admin: 08/13/21 09:23 Dose: 17 gm Documented By: RENNY Psyllium Hydrophilic Mucilloid (Psyllium Seed 3.4 Gm Powd.Pack) 3.4 gm PO DAILY [facility] Last Admin: 08/13/21 09:23 Dose: 3.4 gm Documented By: RENNY Labs CBC & Chem 7: 07/20/21 05:22 07/20/21 05:22 Assessment and Plan (1) Dementia with behavioral disturbance: Status: Acute Plan 75 year old female with history of HLD, HTN, hypothyroidism, dementia who was brought to the ED by EMS 06/17 after being found wandering on the street. She was seen by psych and deemed not to have capacity to make medical decisions and was admitted to the hospital on 06/29 with plans to pursue guardianship Dementia no behavioral issues at this time does not have capacity to make medical decisions pending guardianship Constipation Laxatives HTN BP is stable continue Norvasc hypothyroidism Continue synthroid 50 mcg, TSH 2.42 Small Stage II pressure ulcer of right buttock continue local wound care, continue protein supplements and frequent repositioning dvt ppx - ambulation code status - full code requires ongoing hospitalization to obtain guardianship and safe disposition Quality Stroke Does the patient have a stroke diagnosis?: No VTE Prior VTE?: No VTE Risk Level:: Medical - low VTE Device Contraindication: Treatment Not Indicated VTE Drug Contraindication: Treatment Not Indicated
[2021-08-13 16:00] VITALS: BP 128/76; PULSE 88; RESP 16; TEMP 36.4; O2SAT 97
[2021-08-13 23:57] VITALS: BP 120/57; PULSE 70; RESP 16; TEMP 36.7; O2SAT 99
[2021-08-14] MEDS: Levothyroxine Sodium 50 MCG TABLET PO (06:05)
[2021-08-14 07:34] VITALS: BP 136/61; PULSE 64; RESP 20; TEMP 36.2; O2SAT 100
[2021-08-14] MEDS: polyethylene glycoL 3350 17 GM POWD.PACK PO (09:16)
[2021-08-14] MEDS: amLODIPine Besylate 5 MG TABLET PO (09:17)
--- NOTE | 2021-08-14 10:46 | HO.PM.IMPN ---
Subjective Subjective Date of Service: 08/14/21 Interval History: laying comfortable in her bed a pleasantly confused with no complaints overnight no reported events Review of Systems No fever, chills or weakness No chest pain, palpitation No shortness of breath or coughing No abdominal pain, nausea or vomiting No urinary symptoms No any rash or wounds Physical Exam Vital Signs: Vital Signs: Last Vital Signs Temp 97.1 F 08/14/21 07:34 Pulse 64 08/14/21 07:34 Resp 20 08/14/21 07:34 BP 136/61 08/14/21 07:34 Pulse Ox 100 08/14/21 07:34 O2 Del Method 08/14/21 07:34 BMI result Body Mass Index 21.3 Const: Other: Constitutional : Alert, not in distress Neck : Normal inspection, Supple Cardiovascular : no JVP, no lower extremity edema Gastrointestinal: soft, lax, Normal bowel sounds, Non tender Skin : Warm, Dry, stage II pressure ulcer right buttock with no infection Neurological : No focal deficit Objective Data Active Medications Acetaminophen (Acetaminophen 325 Mg Tablet) 650 mg PO Q6H PRN PRN Reason: Pain, Mild (Pain Scale 1-3) Amlodipine Besylate (Amlodipine Besylate 5 Mg Tablet) 5 mg PO DAILY [facility]; Protocol Last Admin: 08/14/21 09:17 Dose: 5 mg Documented By: VIGNESH Levothyroxine Sodium (Levothyroxine Sodium 50 Mcg Tablet) 50 mcg PO DAILY@0600 [facility] Last Admin: 08/14/21 06:05 Dose: 50 mcg Documented By: ABIOLA Ondansetron HCl (Ondansetron Hcl 4 Mg/2 Ml Vial) 4 mg IVPUSH Q8H PRN PRN Reason: Nausea and Vomiting Pharmacy Consult (Consult Rx Perform Med Rec) 1 each MISCELLANE ONCE PRN PRN Reason: Consult order Polyethylene Glycol (Polyethylene Glycol 3350 17 Gm Powd.Pack) 17 gm PO DAILY [facility] Last Admin: 08/14/21 09:16 Dose: 17 gm Documented By: VIGNESH Psyllium Hydrophilic Mucilloid (Psyllium Seed 3.4 Gm Powd.Pack) 3.4 gm PO DAILY [facility] Last Admin: 08/14/21 09:16 Dose: 3.4 gm Documented By: VIGNESH Labs CBC & Chem 7: 07/20/21 05:22 06/08/22 05:22 Assessment and Plan (1) Dementia with behavioral disturbance: Status: Acute Plan 75 year old female with history of HLD, HTN, hypothyroidism, dementia who was brought to the ED by EMS 06/17 after being found wandering on the street. She was seen by psych and deemed not to have capacity to make medical decisions and was admitted to the hospital on 06/29 with plans to pursue guardianship Dementia no behavioral issues at this time does not have capacity to make medical decisions pending guardianship Constipation Laxatives HTN BP is stable continue Norvasc hypothyroidism Continue synthroid 50 mcg, TSH 2.42 Small Stage II pressure ulcer of right buttock continue local wound care, continue protein supplements and frequent repositioning dvt ppx - ambulation code status - full code requires ongoing hospitalization to obtain guardianship and safe disposition Quality Stroke Does the patient have a stroke diagnosis?: No VTE Prior VTE?: No VTE Risk Level:: Medical - low VTE Device Contraindication: Treatment Not Indicated VTE Drug Contraindication: Treatment Not Indicated
[2021-08-14 11:00] LABS: Anion Gap 10 (12-20); Blood Urea Nitrogen 35 mg/dL (9-16); Calcium 8.8 mg/dL (8.4-10.2); Carbon Dioxide 29 mmol/L (22-29); Chloride 105 mmol/L (96-108); Creatinine Clr Calc Pharmacy 41.1; Estimated Glomerular Filt Rate 50; Glucose Random 91 mg/dL (60-115); Potassium 4.3 mmol/L (3.3-5.1); Sodium 140 mmol/L (135-145)
[2021-08-14 14:57] VITALS: BP 125/66; PULSE 75; RESP 18; TEMP 36.4; O2SAT 100
[2021-08-14 23:49] VITALS: BP 111/60; PULSE 58; RESP 16; TEMP 36.3; O2SAT 98
[2021-08-15] MEDS: Levothyroxine Sodium 50 MCG TABLET PO (05:52)
[2021-08-15 07:57] VITALS: BP 116/61; PULSE 57; RESP 18; TEMP 36.2; O2SAT 99
[2021-08-15] MEDS: polyethylene glycoL 3350 17 GM POWD.PACK PO (08:01)
[2021-08-15] MEDS: amLODIPine Besylate 5 MG TABLET PO (08:01)
--- NOTE | 2021-08-15 12:38 | P.PNIM_ITS ---
Subjective Subjective Date of Service: 08/15/21 Interval History: laying comfortable in her bed a pleasantly confused with no complaints overnight no reported events Review of Systems No fever, chills or weakness No chest pain, palpitation No shortness of breath or coughing No abdominal pain, nausea or vomiting No urinary symptoms No any rash or wounds Physical Exam Vital Signs: Vital Signs: Last Vital Signs Temp 97.2 F 08/15/21 07:57 Pulse 57 08/15/21 07:57 Resp 18 08/15/21 07:57 BP 116/61 08/15/21 07:57 Pulse Ox 99 08/15/21 07:57 O2 Del Method 08/15/21 07:57 BMI result Body Mass Index 21.3 Const: Other: Constitutional : Alert, not in distress Neck : Normal inspection, Supple Cardiovascular : no JVP, no lower extremity edema Gastrointestinal: soft, lax, Normal bowel sounds, Non tender Skin : Warm, Dry, stage II pressure ulcer right buttock with no infection Neurological : No focal deficit Objective Data Active Medications Acetaminophen (Acetaminophen 325 Mg Tablet) 650 mg PO Q6H PRN PRN Reason: Pain, Mild (Pain Scale 1-3) Amlodipine Besylate (Amlodipine Besylate 5 Mg Tablet) 5 mg PO DAILY [facility]; Protocol Last Admin: 08/15/21 08:01 Dose: 5 mg Documented By: LEON Levothyroxine Sodium (Levothyroxine Sodium 50 Mcg Tablet) 50 mcg PO DAILY@0600 [facility] Last Admin: 08/15/21 05:52 Dose: 50 mcg Documented By: ABIOLA Ondansetron HCl (Ondansetron Hcl 4 Mg/2 Ml Vial) 4 mg IVPUSH Q8H PRN PRN Reason: Nausea and Vomiting Pharmacy Consult (Consult Rx Perform Med Rec) 1 each MISCELLANE ONCE PRN PRN Reason: Consult order Polyethylene Glycol (Polyethylene Glycol 3350 17 Gm Powd.Pack) 17 gm PO DAILY [facility] Last Admin: 08/15/21 08:01 Dose: 17 gm Documented By: LEON Psyllium Hydrophilic Mucilloid (Psyllium Seed 3.4 Gm Powd.Pack) 3.4 gm PO DAILY [facility] Last Admin: 08/15/21 08:01 Dose: 3.4 gm Documented By: LEON Labs CBC & Chem 7: 07/20/21 05:22 08/14/21 10:21 Assessment and Plan (1) Dementia with behavioral disturbance: Status: Acute Plan 75 year old female with history of HLD, HTN, hypothyroidism, dementia who was brought to the ED by EMS 06/17 after being found wandering on the street. She was seen by psych and deemed not to have capacity to make medical decisions and was admitted to the hospital on 06/29 with plans to pursue guardianship Dementia no behavioral issues at this time does not have capacity to make medical decisions pending guardianship Constipation Laxatives HTN BP is stable continue Norvasc hypothyroidism Continue synthroid 50 mcg, TSH 2.42 Small Stage II pressure ulcer of right buttock continue local wound care, continue protein supplements and frequent repositioning dvt ppx - ambulation code status - full code requires ongoing hospitalization to obtain guardianship and safe disposition Quality Stroke Does the patient have a stroke diagnosis?: No VTE Prior VTE?: No VTE Risk Level:: Medical - low VTE Device Contraindication: Treatment Not Indicated VTE Drug Contraindication: Treatment Not Indicated
[2021-08-15 16:00] VITALS: BP 130/78; PULSE 74; RESP 14; TEMP 36.7; O2SAT 100
[2021-08-16] VITALS: BP 117/67; PULSE 71; RESP 18; TEMP 36.5; O2SAT 98
[2021-08-16] MEDS: Levothyroxine Sodium 50 MCG TABLET PO (05:21)
[2021-08-16 07:42] VITALS: BP 135/68; PULSE 61; RESP 16; TEMP 36.6; O2SAT 100
[2021-08-16] MEDS: polyethylene glycoL 3350 17 GM POWD.PACK PO (10:06)
[2021-08-16] MEDS: amLODIPine Besylate 5 MG TABLET PO (10:06)
--- NOTE | 2021-08-16 14:49 | HO.PM.IMPN ---
Subjective Subjective Date of Service: 08/16/21 Interval History: laying comfortable in her bed a pleasantly confused with no complaints overnight no reported events Review of Systems No fever, chills or weakness No chest pain, palpitation No shortness of breath or coughing No abdominal pain, nausea or vomiting No urinary symptoms No any rash or wounds Physical Exam Vital Signs: Vital Signs: Last Vital Signs Temp 98 F 08/16/21 07:42 Pulse 61 08/16/21 07:42 Resp 16 08/16/21 07:42 BP 135/68 08/16/21 07:42 Pulse Ox 100 08/16/21 07:42 O2 Del Method 08/16/21 07:42 BMI result Body Mass Index 21.3 Const: Other: Constitutional : Alert, not in distress Neck : Normal inspection, Supple Cardiovascular : no JVP, no lower extremity edema Gastrointestinal: soft, lax, Normal bowel sounds, Non tender Skin : Warm, Dry, stage II pressure ulcer right buttock with no infection Neurological : No focal deficit Objective Data Active Medications Acetaminophen (Acetaminophen 325 Mg Tablet) 650 mg PO Q6H PRN PRN Reason: Pain, Mild (Pain Scale 1-3) Amlodipine Besylate (Amlodipine Besylate 5 Mg Tablet) 5 mg PO DAILY [facility]; Protocol Last Admin: 08/16/21 10:06 Dose: 5 mg Documented By: LEON Levothyroxine Sodium (Levothyroxine Sodium 50 Mcg Tablet) 50 mcg PO DAILY@0600 [facility] Last Admin: 08/16/21 05:21 Dose: 50 mcg Documented By: LUCINDA Ondansetron HCl (Ondansetron Hcl 4 Mg/2 Ml Vial) 4 mg IVPUSH Q8H PRN PRN Reason: Nausea and Vomiting Pharmacy Consult (Consult Rx Perform Med Rec) 1 each MISCELLANE ONCE PRN PRN Reason: Consult order Polyethylene Glycol (Polyethylene Glycol 3350 17 Gm Powd.Pack) 17 gm PO DAILY [facility] Last Admin: 08/16/21 10:06 Dose: 17 gm Documented By: LEON Psyllium Hydrophilic Mucilloid (Psyllium Seed 3.4 Gm Powd.Pack) 3.4 gm PO DAILY [facility] Last Admin: 08/16/21 10:06 Dose: 3.4 gm Documented By: LEON Labs CBC & Chem 7: 07/20/21 05:22 08/14/21 10:21 Assessment and Plan (1) Stage II pressure ulcer of right buttock: Status: Acute (2) Dementia with behavioral disturbance: Status: Acute Plan 75 year old female with history of HLD, HTN, hypothyroidism, dementia who was brought to the ED by EMS 06/17 after being found wandering on the [place]. She was seen by psych and deemed not to have capacity to make medical decisions and was admitted to the hospital on 06/29 with plans to pursue guardianship Dementia no behavioral issues at this time does not have capacity to make medical decisions pending guardianship Constipation Laxatives HTN BP is stable continue Norvasc hypothyroidism Continue synthroid 50 mcg, TSH 2.42 Small Stage II pressure ulcer of right buttock continue local wound care, continue protein supplements and frequent repositioning dvt ppx - ambulation code status - full code requires ongoing hospitalization to obtain guardianship and safe disposition Quality Stroke Does the patient have a stroke diagnosis?: No VTE Prior VTE?: No VTE Risk Level:: Medical - low VTE Device Contraindication: Treatment Not Indicated VTE Drug Contraindication: Treatment Not Indicated
[2021-08-16 16:00] VITALS: BP 112/64; PULSE 88; RESP 18; TEMP 36.2; O2SAT 100
[2021-08-16 23:13] VITALS: BP 115/63; PULSE 65; RESP 16; TEMP 36.8; O2SAT 97
[2021-08-17] MEDS: Levothyroxine Sodium 50 MCG TABLET PO (05:35)
[2021-08-17 07:35] VITALS: BP 134/90; PULSE 63; RESP 18; TEMP 36.4; O2SAT 100
[2021-08-17] MEDS: polyethylene glycoL 3350 17 GM POWD.PACK PO (09:20)
[2021-08-17] MEDS: amLODIPine Besylate 5 MG TABLET PO (09:20)
--- NOTE | 2021-08-17 10:53 | HO.PM.IMPN ---
Subjective Subjective Date of Service: 08/17/21 Interval History: pleasantly confused with no complaints overnight no reported events Review of Systems No fever, chills or weakness No chest pain, palpitation No shortness of breath or coughing No abdominal pain, nausea or vomiting No urinary symptoms No any rash or wounds Physical Exam Vital Signs: Vital Signs: Last Vital Signs Temp 97.6 F 08/17/21 07:35 Pulse 63 08/17/21 07:35 Resp 18 08/17/21 07:35 BP 134/90 H 08/17/21 07:35 Pulse Ox 100 08/17/21 07:35 O2 Del Method 08/17/21 07:35 BMI result Body Mass Index 21.3 Const: Other: Constitutional : Alert, not in distress Neck : Normal inspection, Supple Cardiovascular : no JVP, no lower extremity edema Gastrointestinal: soft, lax, Normal bowel sounds, Non tender Skin : Warm, Dry, stage II pressure ulcer right buttock with no infection Neurological : No focal deficit Objective Data Active Medications Acetaminophen (Acetaminophen 325 Mg Tablet) 650 mg PO Q6H PRN PRN Reason: Pain, Mild (Pain Scale 1-3) Amlodipine Besylate (Amlodipine Besylate 5 Mg Tablet) 5 mg PO DAILY [facility]; Protocol Last Admin: 08/17/21 09:20 Dose: 5 mg Documented By: ANAY Levothyroxine Sodium (Levothyroxine Sodium 50 Mcg Tablet) 50 mcg PO DAILY@0600 [facility] Last Admin: 08/17/21 05:35 Dose: 50 mcg Documented By: CAMILLA Ondansetron HCl (Ondansetron Hcl 4 Mg/2 Ml Vial) 4 mg IVPUSH Q8H PRN PRN Reason: Nausea and Vomiting Pharmacy Consult (Consult Rx Perform Med Rec) 1 each MISCELLANE ONCE PRN PRN Reason: Consult order Polyethylene Glycol (Polyethylene Glycol 3350 17 Gm Powd.Pack) 17 gm PO DAILY [facility] Last Admin: 08/17/21 09:20 Dose: 17 gm Documented By: ANAY Psyllium Hydrophilic Mucilloid (Psyllium Seed 3.4 Gm Powd.Pack) 3.4 gm PO DAILY [facility] Last Admin: 08/17/21 09:20 Dose: 3.4 gm Documented By: ANAY Labs CBC & Chem 7: 07/20/21 05:22 08/14/21 10:21 Assessment and Plan (1) Dementia with behavioral disturbance: Status: Acute Plan 75 year old female with history of HLD, HTN, hypothyroidism, dementia who was brought to the ED by EMS 06/17 after being found wandering on the street. She was seen by psych and deemed not to have capacity to make medical decisions and was admitted to the hospital on 06/29 with plans to pursue guardianship Dementia no behavioral issues at this time does not have capacity to make medical decisions pending Placement Constipation Laxatives HTN BP is stable continue Norvasc hypothyroidism Continue synthroid 50 mcg, TSH 2.42 Small Stage II pressure ulcer of right buttock continue local wound care, continue protein supplements and frequent repositioning dvt ppx - ambulation code status - full code guardianship acquired, requires ongoing hospitalization to pending placement for safe disposition Quality Stroke Does the patient have a stroke diagnosis?: No VTE Prior VTE?: No VTE Risk Level:: Medical - low VTE Device Contraindication: Treatment Not Indicated VTE Drug Contraindication: Treatment Not Indicated
--- NOTE | 2021-08-17 12:52 | MHC.CM.PN ---
EMR REVIEWED, PT REMAINS MEDICALLY CLEARED AND PLEASANTLY CONFUSED, SNF REFERRAL UPDATED AND CM WAITING FOR BED OFFER, WILL CONT TO FOLLOW D/C NEEDS.
[2021-08-17 15:22] VITALS: BP 110/65; PULSE 69; RESP 17; TEMP 36.4; O2SAT 94
[2021-08-17 23:40] VITALS: BP 114/66; PULSE 60; RESP 18; TEMP 35.9; O2SAT 98
[2021-08-18] MEDS: Levothyroxine Sodium 50 MCG TABLET PO (05:35)
[2021-08-18 07:13] VITALS: BP 133/73; PULSE 60; RESP 16; TEMP 36.2; O2SAT 100
[2021-08-18] MEDS: polyethylene glycoL 3350 17 GM POWD.PACK PO (07:47)
[2021-08-18] MEDS: amLODIPine Besylate 5 MG TABLET PO (07:48)
--- NOTE | 2021-08-18 15:53 | HO.PM.IMPN ---
Subjective Subjective Date of Service: 08/18/21 Interval History: Seen and examined this morning Awaiting placement No overnight events Pleasantly confused, no complaints Review of Systems Review of Systems: Yes all other systems are reviewed and are negative Constitutional Constitutional: Denies chills and Denies fever(s) Cardiovascular Cardiovascular: Denies chest pain, Denies palpitations and Denies dyspnea Respiratory Respiratory: Denies cough and Denies dyspnea Gastrointestinal Gastrointestinal: Denies abdominal pain Endocrine Endocrine: Denies palpitations Physical Exam Vital Signs: Vital Signs: Last Vital Signs Temp 97.1 F 08/18/21 07:13 Pulse 60 08/18/21 07:13 Resp 16 08/18/21 07:13 BP 133/73 08/18/21 07:13 Pulse Ox 100 08/18/21 07:13 O2 Del Method 08/18/21 07:13 BMI result Body Mass Index 21.3 Const: General: healthy appearing, comfortable, no acute distress, alert and awake Nutritional Appearance: average body habitus Resp: Effort & Inspection: normal respiratory effort and able to speak in complete sentences Auscultation: clear to auscultation bilaterally Cardio: Rate: regular rate Heart sounds: S1 normal heart sound present and S2 normal heart sound present GI: Inspection: No distended Palpation (GI): Soft to palpation Extrem: General: Yes no pedal edema Objective Data Active Medications Acetaminophen (Acetaminophen 325 Mg Tablet) 650 mg PO Q6H PRN PRN Reason: Pain, Mild (Pain Scale 1-3) Amlodipine Besylate (Amlodipine Besylate 5 Mg Tablet) 5 mg PO DAILY [facility]; Protocol Last Admin: 08/18/21 07:48 Dose: 5 mg Documented By: OSEAS Levothyroxine Sodium (Levothyroxine Sodium 50 Mcg Tablet) 50 mcg PO DAILY@0600 [facility] Last Admin: 08/18/21 05:35 Dose: 50 mcg Documented By: JOSEPH Ondansetron HCl (Ondansetron Hcl 4 Mg/2 Ml Vial) 4 mg IVPUSH Q8H PRN PRN Reason: Nausea and Vomiting Pharmacy Consult (Consult Rx Perform Med Rec) 1 each MISCELLANE ONCE PRN PRN Reason: Consult order Polyethylene Glycol (Polyethylene Glycol 3350 17 Gm Powd.Pack) 17 gm PO DAILY [facility] Last Admin: 08/18/21 07:47 Dose: 17 gm Documented By: OSEAS Psyllium Hydrophilic Mucilloid (Psyllium Seed 3.4 Gm Powd.Pack) 3.4 gm PO DAILY [facility] Last Admin: 08/18/21 07:47 Dose: 3.4 gm Documented By: OSEAS Labs CBC & Chem 7: 07/20/21 05:22 08/14/21 10:21 Assessment and Plan (1) Dementia with behavioral disturbance: Status: Acute Plan 75 year old female with history of HLD, HTN, hypothyroidism, dementia who was brought to the ED by EMS 06/17 after being found wandering on the street. She was seen by psych and deemed not to have capacity to make medical decisions and was admitted to the hospital on 06/29 with plans to pursue guardianship Dementia no behavioral issues at this time does not have capacity to make medical decisions pending Placement Constipation Continue bowel regimen ?HTN BP is stable continue Norvasc hypothyroidism Continue synthroid 50 mcg, TSH 2.42 Small Stage II pressure ulcer of right buttock continue local wound care, continue protein supplements and frequent repositioning dvt ppx - ambulation code status - full code Attending-Dr. Thompson ?guardianship acquired, requires ongoing hospitalization to? pending placement for safe disposition Quality Stroke Does the patient have a stroke diagnosis?: No VTE Prior VTE?: No VTE Risk Level:: Medical - low VTE Device Contraindication: Treatment Not Indicated VTE Drug Contraindication: Treatment Not Indicated
[2021-08-18 15:55] VITALS: BP 110/60; PULSE 67; RESP 16; TEMP 36.1; O2SAT 99
[2021-08-18 23:19] VITALS: BP 109/71; PULSE 72; RESP 18; TEMP 36.6; O2SAT 97
[2021-08-19] MEDS: Levothyroxine Sodium 50 MCG TABLET PO (05:31)
[2021-08-19 07:56] VITALS: BP 131/67; PULSE 65; RESP 16; TEMP 36.3; O2SAT 98
[2021-08-19] MEDS: polyethylene glycoL 3350 17 GM POWD.PACK PO (08:11)
[2021-08-19] MEDS: amLODIPine Besylate 5 MG TABLET PO (08:11)
--- NOTE | 2021-08-19 10:33 | P.PNIM_ITS ---
Subjective Subjective Date of Service: 08/19/21 Interval History: Seen and examined this morning Follow-up for placement No overnight events Observed sitting up in bed eating breakfast. No complaints at this time Review of Systems Review of Systems: Yes all other systems are reviewed and are negative Constitutional Constitutional: Denies chills and Denies fever(s) Cardiovascular Cardiovascular: Denies chest pain, Denies palpitations and Denies dyspnea Respiratory Respiratory: Denies cough and Denies dyspnea Gastrointestinal Gastrointestinal: Denies abdominal pain, Denies nausea and Denies vomiting Endocrine Endocrine: Denies palpitations Physical Exam Vital Signs: Vital Signs: Last Vital Signs Temp 97.4 F 08/19/21 07:56 Pulse 65 08/19/21 07:56 Resp 16 08/19/21 07:56 BP 131/67 08/19/21 07:56 Pulse Ox 98 08/19/21 07:56 O2 Del Method 08/19/21 07:56 BMI result Body Mass Index 21.3 Const: General: cooperative, healthy appearing, comfortable, no acute distress, alert and awake Nutritional Appearance: average body habitus and thin Resp: Effort & Inspection: normal respiratory effort and able to speak in complete sentences Auscultation: clear to auscultation bilaterally Cardio: Rate: regular rate Heart sounds: S1 normal heart sound present and S2 normal heart sound present GI: Inspection: No distended Palpation (GI): Soft to palpation and nontender Skin: Other: multiple skin tears b/l arms Extrem: General: Yes no pedal edema Objective Data Active Medications Acetaminophen (Acetaminophen 325 Mg Tablet) 650 mg PO Q6H PRN PRN Reason: Pain, Mild (Pain Scale 1-3) Amlodipine Besylate (Amlodipine Besylate 5 Mg Tablet) 5 mg PO DAILY [facility]; Protocol Last Admin: 08/19/21 08:11 Dose: 5 mg Documented By: OSEAS Levothyroxine Sodium (Levothyroxine Sodium 50 Mcg Tablet) 50 mcg PO DAILY@0600 [facility] Last Admin: 08/19/21 05:31 Dose: 50 mcg Documented By: LUCINDA Ondansetron HCl (Ondansetron Hcl 4 Mg/2 Ml Vial) 4 mg IVPUSH Q8H PRN PRN Reason: Nausea and Vomiting Pharmacy Consult (Consult Rx Perform Med Rec) 1 each MISCELLANE ONCE PRN PRN Reason: Consult order Polyethylene Glycol (Polyethylene Glycol 3350 17 Gm Powd.Pack) 17 gm PO DAILY [facility] Last Admin: 08/19/21 08:11 Dose: 17 gm Documented By: OSEAS Psyllium Hydrophilic Mucilloid (Psyllium Seed 3.4 Gm Powd.Pack) 3.4 gm PO DAILY [facility] Last Admin: 08/19/21 08:11 Dose: 3.4 gm Documented By: OSEAS Labs CBC & Chem 7: 07/20/21 05:22 08/14/21 10:21 Assessment and Plan (1) Dementia with behavioral disturbance: Status: Acute Plan 75 year old female with history of HLD, HTN, hypothyroidism, dementia who was brought to the ED by EMS 06/17 after being found wandering on the street. She was seen by psych and deemed not to have capacity to make medical decisions and was admitted to the hospital on 06/29 with plans to pursue guardianship Dementia no behavioral issues at this time does not have capacity to make medical decisions pending Placement Constipation Continue bowel regimen HTN BP is stable continue Norvasc hypothyroidism Continue synthroid 50 mcg, TSH 2.42 Small Stage II pressure ulcer of right buttock continue local wound care, continue protein supplements and frequent reposi tioning dvt ppx - ambulation code status - full code Attending-Dr. Thompson ?guardianship acquired, requires ongoing hospitalization to? pending placement for safe disposition Quality Stroke Does the patient have a stroke diagnosis?: No VTE Prior VTE?: No VTE Risk Level:: Medical - low VTE Device Contraindication: Treatment Not Indicated VTE Drug Contraindication: Treatment Not Indicated
[2021-08-19 15:35] VITALS: BP 102/70; PULSE 86; RESP 16; TEMP 36.4; O2SAT 100
[2021-08-19 23:48] VITALS: BP 114/62; PULSE 69; RESP 18; TEMP 36.4; O2SAT 98
[2021-08-20] MEDS: Levothyroxine Sodium 50 MCG TABLET PO (06:08)
[2021-08-20 07:23] VITALS: BP 112/55; PULSE 62; RESP 17; TEMP 36.3; O2SAT 98
[2021-08-20] MEDS: polyethylene glycoL 3350 17 GM POWD.PACK PO (07:59)
[2021-08-20] MEDS: amLODIPine Besylate 5 MG TABLET PO (07:59)
--- NOTE | 2021-08-20 11:12 | HO.PM.IMPN ---
Subjective Subjective Date of Service: 08/20/21 Review of Systems Follow up Placement No complaints sleeping well Physical Exam Vital Signs: Vital Signs: Last Vital Signs Temp 97.4 F 08/20/21 07:23 Pulse 62 08/20/21 07:23 Resp 17 08/20/21 07:23 BP 112/55 L 08/20/21 07:23 Pulse Ox 98 08/20/21 07:23 O2 Del Method 08/20/21 07:23 BMI result Body Mass Index 21.3 Appearing in no acute distress lung sounds are clear to auscultation heart regular rate rhythm positive bowel sounds neuro patient is alert Objective Data Active Medications Acetaminophen (Acetaminophen 325 Mg Tablet) 650 mg PO Q6H PRN PRN Reason: Pain, Mild (Pain Scale 1-3) Amlodipine Besylate (Amlodipine Besylate 5 Mg Tablet) 5 mg PO DAILY [facility]; Protocol Last Admin: 08/20/21 07:59 Dose: 5 mg Documented By: LEON Levothyroxine Sodium (Levothyroxine Sodium 50 Mcg Tablet) 50 mcg PO DAILY@0600 [facility] Last Admin: 08/20/21 06:08 Dose: 50 mcg Documented By: WILLY Ondansetron HCl (Ondansetron Hcl 4 Mg/2 Ml Vial) 4 mg IVPUSH Q8H PRN PRN Reason: Nausea and Vomiting Pharmacy Consult (Consult Rx Perform Med Rec) 1 each MISCELLANE ONCE PRN PRN Reason: Consult order Polyethylene Glycol (Polyethylene Glycol 3350 17 Gm Powd.Pack) 17 gm PO DAILY [facility] Last Admin: 08/20/21 07:59 Dose: 17 gm Documented By: LEON Psyllium Hydrophilic Mucilloid (Psyllium Seed 3.4 Gm Powd.Pack) 3.4 gm PO DAILY [facility] Last Admin: 08/20/21 07:59 Dose: 3.4 gm Documented By: LEON Labs CBC & Chem 7: 07/20/21 05:22 08/14/21 10:21 Assessment and Plan (1) Dementia with behavioral disturbance: Status: Acute Plan 75 year old female with history of HLD, HTN, hypothyroidism, dementia who was brought to the ED by EMS 06/17 after being found wandering on the street. She was seen by psych and deemed not to have capacity to make medical decisions and was admitted to the hospital on 06/29 with plans to pursue guardianship NO changes overnight 08/20/21 Dementia no behavioral issues at this time does not have capacity to make medical decisions pending Placement Constipation Continue bowel regimen HTN BP is stable continue Norvasc hypothyroidism Continue synthroid 50 mcg, TSH 2.42 Small Stage II pressure ulcer of right buttock continue local wound care, continue protein supplements and frequent repositioning dvt ppx - ambulation code status - full code Attending-Dr. Ortega ?guardianship acquired, requires ongoing hospitalization to? pending placement for safe disposition Quality Stroke Does the patient have a stroke diagnosis?: No VTE Prior VTE?: No VTE Risk Level:: Medical - low VTE Device Contraindication: Treatment Not Indicated VTE Drug Contraindication: Treatment Not Indicated
[2021-08-20 15:37] VITALS: BP 117/61; PULSE 65; RESP 17; TEMP 36.3; O2SAT 100
[2021-08-21] VITALS: BP 113/55; PULSE 65; RESP 18; TEMP 36.5; O2SAT 97
[2021-08-21] MEDS: Levothyroxine Sodium 50 MCG TABLET PO (05:07)
[2021-08-21 08:00] VITALS: BP 140/82; PULSE 67; RESP 18; TEMP 36.4; O2SAT 97
--- NOTE | 2021-08-21 09:00 | HO.PM.IMPN ---
Subjective Subjective Date of Service: 08/21/21 Review of Systems Follow up Placement No complaints sleeping well Physical Exam Vital Signs: Vital Signs: Last Vital Signs Temp 97.6 F 08/21/21 08:00 Pulse 67 08/21/21 08:00 Resp 18 08/21/21 08:00 BP 140/82 H 08/21/21 08:00 Pulse Ox 97 08/21/21 08:00 O2 Del Method 08/21/21 08:00 BMI result Body Mass Index 21.3 Appearing in no acute distress lung sounds are clear to auscultation heart regular rate rhythm positive bowel sounds neuro patient is alert Objective Data Active Medications Acetaminophen (Acetaminophen 325 Mg Tablet) 650 mg PO Q6H PRN PRN Reason: Pain, Mild (Pain Scale 1-3) Amlodipine Besylate (Amlodipine Besylate 5 Mg Tablet) 5 mg PO DAILY [facility]; Protocol Last Admin: 08/20/21 07:59 Dose: 5 mg Documented By: LEON Levothyroxine Sodium (Levothyroxine Sodium 50 Mcg Tablet) 50 mcg PO DAILY@0600 [facility] Last Admin: 08/21/21 05:07 Dose: 50 mcg Documented By: RENEE Ondansetron HCl (Ondansetron Hcl 4 Mg/2 Ml Vial) 4 mg IVPUSH Q8H PRN PRN Reason: Nausea and Vomiting Pharmacy Consult (Consult Rx Perform Med Rec) 1 each MISCELLANE ONCE PRN PRN Reason: Consult order Polyethylene Glycol (Polyethylene Glycol 3350 17 Gm Powd.Pack) 17 gm PO DAILY [facility] Last Admin: 08/20/21 07:59 Dose: 17 gm Documented By: LEON Psyllium Hydrophilic Mucilloid (Psyllium Seed 3.4 Gm Powd.Pack) 3.4 gm PO DAILY [facility] Last Admin: 08/20/21 07:59 Dose: 3.4 gm Documented By: LEON Labs CBC & Chem 7: 07/20/21 05:22 08/14/21 10:21 Assessment and Plan (1) Dementia with behavioral disturbance: Status: Acute Plan 75 year old female with history of HLD, HTN, hypothyroidism, dementia who was brought to the ED by EMS 06/17 after being found wandering on the street. She was seen by psych and deemed not to have capacity to make medical decisions and was admitted to the hospital on 06/29 with plans to pursue guardianship NO changes overnight 08/21/21 Dementia no behavioral issues at this time does not have capacity to make medical decisions pending Placement Constipation Continue bowel regimen HTN BP is stable continue Norvasc hypothyroidism Continue synthroid 50 mcg, TSH 2.42 Small Stage II pressure ulcer of right buttock continue local wound care, continue protein supplements and frequent repositioning dvt ppx - ambulation code status - full code Attending-Dr. Ortega ?guardianship acquired, requires ongoing hospitalization to? pending placement for safe disposition Quality Stroke Does the patient have a stroke diagnosis?: No VTE Prior VTE?: No VTE Risk Level:: Medical - low VTE Device Contraindication: Treatment Not Indicated VTE Drug Contraindication: Treatment Not Indicated
[2021-08-21] MEDS: amLODIPine Besylate 5 MG TABLET PO (10:30)
[2021-08-21] MEDS: polyethylene glycoL 3350 17 GM POWD.PACK PO (10:31)
[2021-08-21 15:31] VITALS: BP 129/60; PULSE 72; RESP 17; TEMP 36.1; O2SAT 100
[2021-08-21 23:32] VITALS: BP 109/57; PULSE 86; RESP 17; TEMP 36.3; O2SAT 98
[2021-08-22] MEDS: Levothyroxine Sodium 50 MCG TABLET PO (05:19)
[2021-08-22 07:30] VITALS: BP 147/73; PULSE 61; RESP 18; TEMP 36.3; O2SAT 99
--- NOTE | 2021-08-22 08:22 | HO.PM.IMPN ---
Subjective Subjective Date of Service: 08/22/21 Review of Systems Follow up Placement No complaints sleeping well Physical Exam Vital Signs: Vital Signs: Last Vital Signs Temp 97.3 F 08/22/21 07:30 Pulse 61 08/22/21 07:30 Resp 18 08/22/21 07:30 BP 147/73 H 08/22/21 07:30 Pulse Ox 99 08/22/21 07:30 O2 Del Method 08/22/21 07:30 BMI result Body Mass Index 21.3 Appearing in no acute distress lung sounds are clear to auscultation heart regular rate rhythm, clear S1, S2 positive bowel sounds, abdomen is soft, nontender neuro patient is alert Objective Data Active Medications Acetaminophen (Acetaminophen 325 Mg Tablet) 650 mg PO Q6H PRN PRN Reason: Pain, Mild (Pain Scale 1-3) Amlodipine Besylate (Amlodipine Besylate 5 Mg Tablet) 5 mg PO DAILY [facility]; Protocol Last Admin: 08/21/21 10:30 Dose: 5 mg Documented By: LEON Levothyroxine Sodium (Levothyroxine Sodium 50 Mcg Tablet) 50 mcg PO DAILY@0600 [facility] Last Admin: 08/22/21 05:19 Dose: 50 mcg Documented By: LY Ondansetron HCl (Ondansetron Hcl 4 Mg/2 Ml Vial) 4 mg IVPUSH Q8H PRN PRN Reason: Nausea and Vomiting Pharmacy Consult (Consult Rx Perform Med Rec) 1 each MISCELLANE ONCE PRN PRN Reason: Consult order Polyethylene Glycol (Polyethylene Glycol 3350 17 Gm Powd.Pack) 17 gm PO DAILY [facility] Last Admin: 08/21/21 10:31 Dose: 17 gm Documented By: LEON Psyllium Hydrophilic Mucilloid (Psyllium Seed 3.4 Gm Powd.Pack) 3.4 gm PO DAILY [facility] Last Admin: 08/21/21 10:31 Dose: 3.4 gm Documented By: LEON Labs CBC & Chem 7: 07/20/21 05:22 08/14/21 10:21 Assessment and Plan (1) Dementia with behavioral disturbance: Status: Acute Plan 75 year old female with history of HLD, HTN, hypothyroidism, dementia who was brought to the ED by EMS 5/6 after being found wandering on the street. She was seen by psych and deemed not to have capacity to make medical decisions and was admitted to the hospital on 06/29 with plans to pursue guardianship NO changes overnight 08/22/21 Dementia no behavioral issues at this time does not have capacity to make medical decisions pending Placement Constipation Continue bowel regimen HTN BP is stable continue Norvasc hypothyroidism Continue synthroid 50 mcg, TSH 2.42 Small Stage II pressure ulcer of right buttock continue local wound care, continue protein supplements and frequent repositioning dvt ppx - ambulation code status - full code Attending-Dr. Ortega ?guardianship acquired, requires ongoing hospitalization to? pending placement for safe disposition Quality Stroke Does the patient have a stroke diagnosis?: No VTE Prior VTE?: No VTE Risk Level:: Medical - low VTE Device Contraindication: Treatment Not Indicated VTE Drug Contraindication: Treatment Not Indicated
[2021-08-22] MEDS: polyethylene glycoL 3350 17 GM POWD.PACK PO (10:09)
[2021-08-22] MEDS: amLODIPine Besylate 5 MG TABLET PO (10:10)
[2021-08-22 15:21] VITALS: BP 132/73; PULSE 84; RESP 17; TEMP 36.2; O2SAT 100
[2021-08-22 23:54] VITALS: BP 104/56; PULSE 71; RESP 18; TEMP 36.5; O2SAT 98
[2021-08-23] MEDS: Levothyroxine Sodium 50 MCG TABLET PO (05:57)
[2021-08-23 08:13] VITALS: BP 120/59; PULSE 65; RESP 15; TEMP 36.5; O2SAT 99
[2021-08-23] MEDS: amLODIPine Besylate 5 MG TABLET PO (08:49)
[2021-08-23] MEDS: polyethylene glycoL 3350 17 GM POWD.PACK PO (08:49)
--- NOTE | 2021-08-23 10:22 | MHC.CM.PN ---
EMR REVIEWED, PT REMAINS MEDICALLY CLEARED FOR D/C, PT CONT'SS TO NEED SECURE DEMENTIA UNIT, SNF REFERRAL UPDATED, STILL AWAITING BVED OFFERS.
--- NOTE | 2021-08-23 10:33 | HO.PM.IMPN ---
Subjective Subjective Date of Service: 08/23/21 Review of Systems Follow up Placement No complaints sleeping well Physical Exam Vital Signs: Vital Signs: Last Vital Signs Temp 97.7 F 08/23/21 08:13 Pulse 65 08/23/21 08:13 Resp 15 08/23/21 08:13 BP 120/59 L 08/23/21 08:13 Pulse Ox 99 08/23/21 08:13 O2 Del Method 08/23/21 08:13 BMI result Body Mass Index 21.3 Appearing in no acute distress lung sounds are clear to auscultation heart regular rate rhythm positive bowel sounds neuro patient is alert Objective Data Active Medications Acetaminophen (Acetaminophen 325 Mg Tablet) 650 mg PO Q6H PRN PRN Reason: Pain, Mild (Pain Scale 1-3) Amlodipine Besylate (Amlodipine Besylate 5 Mg Tablet) 5 mg PO DAILY [facility]; Protocol Last Admin: 08/23/21 08:49 Dose: 5 mg Documented By: BOLA Levothyroxine Sodium (Levothyroxine Sodium 50 Mcg Tablet) 50 mcg PO DAILY@0600 [facility] Last Admin: 08/23/21 05:57 Dose: 50 mcg Documented By: KULWINDER Ondansetron HCl (Ondansetron Hcl 4 Mg/2 Ml Vial) 4 mg IVPUSH Q8H PRN PRN Reason: Nausea and Vomiting Pharmacy Consult (Consult Rx Perform Med Rec) 1 each MISCELLANE ONCE PRN PRN Reason: Consult order Polyethylene Glycol (Polyethylene Glycol 3350 17 Gm Powd.Pack) 17 gm PO DAILY [facility] Last Admin: 08/23/21 08:49 Dose: 17 gm Documented By: BOLA Psyllium Hydrophilic Mucilloid (Psyllium Seed 3.4 Gm Powd.Pack) 3.4 gm PO DAILY [facility] Last Admin: 08/23/21 08:49 Dose: 3.4 gm Documented By: BOLA Labs CBC & Chem 7: 07/20/21 05:22 08/14/21 10:21 Assessment and Plan (1) Dementia with behavioral disturbance: Status: Acute Plan 75 year old female with history of HLD, HTN, hypothyroidism, dementia who was brought to the ED by EMS 06/17 after being found wandering on the street. She was seen by psych and deemed not to have capacity to make medical decisions and was admitted to the hospital on 06/29 with plans to pursue guardianship NO changes overnight 08/23/21 Dementia no behavioral issues at this time does not have capacity to make medical decisions pending Placement Constipation Continue bowel regimen HTN BP is stable continue Norvasc hypothyroidism Continue synthroid 50 mcg, TSH 2.42 Small Stage II pressure ulcer of right buttock continue local wound care, continue protein supplements and frequent repositioning dvt ppx - ambulation code status - full code Attending-Dr. Ortega ?guardianship acquired, requires ongoing hospitalization to? pending placement for safe disposition Quality Stroke Does the patient have a stroke diagnosis?: No VTE Prior VTE?: No VTE Risk Level:: Medical - low VTE Device Contraindication: Treatment Not Indicated VTE Drug Contraindication: Treatment Not Indicated
[2021-08-23 15:25] VITALS: BP 102/56; PULSE 77; RESP 18; TEMP 36.5; O2SAT 96
[2021-08-23 23:58] VITALS: BP 114/59; PULSE 67; RESP 18; TEMP 36.6; O2SAT 98
[2021-08-24] MEDS: Levothyroxine Sodium 50 MCG TABLET PO (06:11)
[2021-08-24 07:30] VITALS: BP 148/72; PULSE 65; RESP 16; TEMP 36.1; O2SAT 99
--- NOTE | 2021-08-24 07:39 | HO.PM.IMPN ---
Subjective Subjective Date of Service: 08/24/21 Review of Systems Follow up Placement No complaints sleeping well Physical Exam Vital Signs: Vital Signs: Last Vital Signs Temp 97.0 F 08/24/21 07:30 Pulse 65 08/24/21 07:30 Resp 16 08/24/21 07:30 BP 148/72 H 08/24/21 07:30 Pulse Ox 99 08/24/21 07:30 O2 Del Method 08/24/21 07:30 BMI result Body Mass Index 21.3 Appearing in no acute distress lung sounds are clear to auscultation heart regular rate rhythm positive bowel sounds neuro patient is alert Objective Data Active Medications Acetaminophen (Acetaminophen 325 Mg Tablet) 650 mg PO Q6H PRN PRN Reason: Pain, Mild (Pain Scale 1-3) Amlodipine Besylate (Amlodipine Besylate 5 Mg Tablet) 5 mg PO DAILY [facility]; Protocol Last Admin: 08/23/21 08:49 Dose: 5 mg Documented By: BOLA Levothyroxine Sodium (Levothyroxine Sodium 50 Mcg Tablet) 50 mcg PO DAILY@0600 [facility] Last Admin: 08/24/21 06:11 Dose: 50 mcg Documented By: SABRINA Ondansetron HCl (Ondansetron Hcl 4 Mg/2 Ml Vial) 4 mg IVPUSH Q8H PRN PRN Reason: Nausea and Vomiting Pharmacy Consult (Consult Rx Perform Med Rec) 1 each MISCELLANE ONCE PRN PRN Reason: Consult order Polyethylene Glycol (Polyethylene Glycol 3350 17 Gm Powd.Pack) 17 gm PO DAILY [facility] Last Admin: 08/23/21 08:49 Dose: 17 gm Documented By: BOLA Psyllium Hydrophilic Mucilloid (Psyllium Seed 3.4 Gm Powd.Pack) 3.4 gm PO DAILY [facility] Last Admin: 08/23/21 08:49 Dose: 3.4 gm Documented By: BOLA Labs CBC & Chem 7: 07/20/21 05:22 08/14/21 10:21 Assessment and Plan (1) Dementia with behavioral disturbance: Status: Acute Plan 75 year old female with history of HLD, HTN, hypothyroidism, dementia who was brought to the ED by EMS 06/17 after being found wandering on the street. She was seen by psych and deemed not to have capacity to make medical decisions and was admitted to the hospital on 06/29 with plans to pursue guardianship NO changes overnight 08/24/21 BMP 08/25/21 Dementia no behavioral issues at this time does not have capacity to make medical decisions pending Placement Constipation Continue bowel regimen HTN BP is stable continue Norvasc hypothyroidism Continue synthroid 50 mcg, TSH 2.42 Small Stage II pressure ulcer of right buttock continue local wound care, continue protein supplements and frequent repositioning dvt ppx - ambulation code status - full code Attending-Dr. Thompson ?guardianship acquired, requires ongoing hospitalization to? pending placement for safe disposition Quality Stroke Does the patient have a stroke diagnosis?: No VTE Prior VTE?: No VTE Risk Level:: Medical - low VTE Device Contraindication: Treatment Not Indicated VTE Drug Contraindication: Treatment Not Indicated
[2021-08-24] MEDS: polyethylene glycoL 3350 17 GM POWD.PACK PO (08:20)
[2021-08-24] MEDS: amLODIPine Besylate 5 MG TABLET PO (08:20)
--- NOTE | 2021-08-24 13:51 | MHC.CM.PN ---
EMR REVIEWED, PT REMAINS MEDICALLY CLEARED, NO BED OFFERS AT THIS TIME, SNF REFERRAL EXPANDED, CM WILL CONT TO FOLLOW D/C NEEDS.
--- NOTE | 2021-08-24 14:47 | MHC.CM.PN ---
SHIVAM RECEIVED CALL FROM LIAISON MAYE AMANDA FROM [facility] IN [place] THAT THEY DO HAVE A FEMALE BED THAT HAS OPENED UP AND SHE WILL ADVOCATE FOR FACILITY TO TAKE PT AND SHE WILL BE IN CONTACT. SHIVAM ALSO CONTACTED [facility] LIAISON LAURENCE [phone] RETURNED MY CALL REPORTING THEY DO TAKE DEMENTIA PTS WHO WONDER, SHIVAM WILL FOLLOW UP W/LAURENCE W/REQUESTED INFO.
[2021-08-24 15:11] VITALS: BP 104/55; PULSE 52; RESP 20; TEMP 36.2; O2SAT 100
[2021-08-24 23:46] VITALS: BP 133/70; PULSE 68; RESP 18; TEMP 36.4; O2SAT 100
[2021-08-25] MEDS: Levothyroxine Sodium 50 MCG TABLET PO (06:11)
[2021-08-25 06:25] LABS: Anion Gap 14 (12-20); Blood Urea Nitrogen 31 mg/dL (9-16); Carbon Dioxide 28 mmol/L (22-29); Chloride 102 mmol/L (96-108); Creatinine Clr Calc Pharmacy 42.3; Estimated Glomerular Filt Rate 51; Glucose Random 81 mg/dL (60-115); Potassium 4.4 mmol/L (3.3-5.1); Sodium 140 mmol/L (135-145)
[2021-08-25 07:31] VITALS: BP 136/67; PULSE 65; RESP 16; TEMP 36.3; O2SAT 100
[2021-08-25] MEDS: amLODIPine Besylate 5 MG TABLET PO (08:47)
[2021-08-25] MEDS: polyethylene glycoL 3350 17 GM POWD.PACK PO (08:48)
--- NOTE | 2021-08-25 09:52 | MHC.CM.PN ---
CM RECEIVED A CALL FROM LIAISON FROM [facility] IN [place] AND REPORTED THEY FEEL PT WOULD BE APPROPRIATE HOWEVER THEY CURRENTLY HAVE A COVID OUTBREAK ON THEIR DEMENTIA UNIT SO UNABLE TO OFFER HOWEVER WILL FOLLOW, [facility] STILL REVIEWING AND HAVE REQUESTED ADDITIONAL CLINICALS WHICH HAVE BEEN SENT IN [facility].
--- NOTE | 2021-08-25 12:39 | PC.NURSE ---
pt awake and pleasant this am, eating breakfast , took medications without any difficulty , pt ambulating in [place] this am with nurses aid pt steady on feet . Pt cooperative with care , and medication administrations .
--- NOTE | 2021-08-25 14:32 | MHC.CM.PN ---
SHIVAM [id number] A CALL [facility] MAYE W/LTC BED OFFER FOR PT, MAYE REPORTS THEY CAN TAKE PT ON Sunday08/29/21 W/MDS AND CAROL HAIR WITHIN 72 HRS OF ADMISSION. SHIVAM CONTACTED PT'S GUARDIAN [facility] AT 2:25PM [phone], [facility] IS AGREEABLE AND PLEASED W/PLACEMENT. [facility] REQUESTING A COPY OF FACE SHEET AND MED LIST FOR PT WHICH WILL BE LEFT ON PT'S CHART FOR HER, [facility] REPORTS SHE WILL BE IN TO SEE PT OVER W/E.
[2021-08-25 15:09] VITALS: BP 108/55; PULSE 65; RESP 16; TEMP 36.2; O2SAT 100
[2021-08-25 23:38] VITALS: BP 118/65; PULSE 59; RESP 18; TEMP 36.5; O2SAT 98
[2021-08-26] MEDS: Levothyroxine Sodium 50 MCG TABLET PO (06:05)
[2021-08-26 07:42] VITALS: BP 136/70; PULSE 60; RESP 16; TEMP 36.4; O2SAT 99
[2021-08-26] MEDS: amLODIPine Besylate 5 MG TABLET PO (09:50)
[2021-08-26] MEDS: polyethylene glycoL 3350 17 GM POWD.PACK PO (09:51)
--- NOTE | 2021-08-26 10:03 | HO.PM.IMPN ---
Subjective Subjective Date of Service: 08/26/21 Interval History: Seen and examined this morning Follow-up for placement No complaints this morning, feeling well Review of Systems Review of Systems: Yes all other systems are reviewed and are negative Constitutional Constitutional: Denies chills and Denies fever(s) Cardiovascular Cardiovascular: Denies chest pain, Denies palpitations and Denies dyspnea Respiratory Respiratory: Denies cough and Denies dyspnea Endocrine Endocrine: Denies palpitations Physical Exam Vital Signs: Vital Signs: Last Vital Signs Temp 97.5 F 08/26/21 07:42 Pulse 60 08/26/21 07:42 Resp 16 08/26/21 07:42 BP 136/70 08/26/21 07:42 Pulse Ox 99 08/26/21 07:42 O2 Del Method 08/26/21 07:42 BMI result Body Mass Index 21.3 Const: General: cooperative, healthy appearing, comfortable, no acute distress, alert and awake Nutritional Appearance: average body habitus Resp: Effort & Inspection: normal respiratory effort and able to speak in complete sentences Auscultation: clear to auscultation bilaterally Cardio: Rate: regular rate GI: Inspection: No distended Palpation (GI): Soft to palpation and nontender Extrem: General: Yes no pedal edema Objective Data Active Medications Acetaminophen (Acetaminophen 325 Mg Tablet) 650 mg PO Q6H PRN PRN Reason: Pain, Mild (Pain Scale 1-3) Amlodipine Besylate (Amlodipine Besylate 5 Mg Tablet) 5 mg PO DAILY [facility]; Protocol Last Admin: 08/26/21 09:50 Dose: 5 mg Documented By: INES Levothyroxine Sodium (Levothyroxine Sodium 50 Mcg Tablet) 50 mcg PO DAILY@0600 [facility] Last Admin: 08/26/21 06:05 Dose: 50 mcg Documented By: SABRINA Ondansetron HCl (Ondansetron Hcl 4 Mg/2 Ml Vial) 4 mg IVPUSH Q8H PRN PRN Reason: Nausea and Vomiting Pharmacy Consult (Consult Rx Perform Med Rec) 1 each MISCELLANE ONCE PRN PRN Reason: Consult order Polyethylene Glycol (Polyethylene Glycol 3350 17 Gm Powd.Pack) 17 gm PO DAILY [facility] Last Admin: 08/26/21 09:51 Dose: 17 gm Documented By: INES Psyllium Hydrophilic Mucilloid (Psyllium Seed 3.4 Gm Powd.Pack) 3.4 gm PO DAILY [facility] Last Admin: 08/26/21 09:51 Dose: 3.4 gm Documented By: INES Labs CBC & Chem 7: 07/20/21 05:22 08/25/21 05:16 Assessment and Plan (1) Dementia with behavioral disturbance: Status: Acute Plan 75 year old female with history of HLD, HTN, hypothyroidism, dementia who was brought to the ED by EMS 06/17 after being found wandering on the street. She was seen by psych and deemed not to have capacity to make medical decisions and was admitted to the hospital on 06/29 with plans to pursue guardianship Dementia no behavioral issues at this time does not have capacity to make medical decisions pending Placement Constipation Continue bowel regimen HTN BP is stable continue Norvasc hypothyroidism Continue synthroid 50 mcg, TSH 2.42 Small Stage II pressure ulcer of right buttock continue local wound care, continue protein supplements and frequent repositioning dvt ppx - ambulation code status - full code Attending-Dr. Thompson ?guardianship acquired, requires ongoing hospitalization to? pending placement for safe disposition. Pt has bed offer at [facility] for Sunday for LTC Quality Stroke Does the patient have a stroke diagnosis?: No VTE Prior VTE?: No VTE Risk Level:: Medical - low VTE Device Contraindication: Treatment Not Indicated VTE Drug Contraindication: Treatment Not Indicated
--- NOTE | 2021-08-26 13:24 | MHC.CM.PN ---
EMR REVIEWED, PT REMAINS MEDICALLY CLEARED, PT WILL D/C TO [facility] Sunday08/29/21, MDS, PSSR LEVEL 1 AMD MH FORM COMPLETED AND FAXED TO CHAD AT [facility] AND SENT TO [facility] VIA [employer].CM WILL CONT TO FOLLOW D/C NEEDS.
[2021-08-26 15:09] VITALS: BP 105/66; PULSE 66; RESP 20; TEMP 36.5; O2SAT 99
[2021-08-26 23:20] VITALS: BP 107/58; PULSE 61; RESP 18; TEMP 36.2; O2SAT 98
[2021-08-27] MEDS: Levothyroxine Sodium 50 MCG TABLET PO (06:29)
[2021-08-27 07:28] VITALS: BP 120/69; PULSE 64; RESP 18; TEMP 36.7; O2SAT 99
[2021-08-27] MEDS: amLODIPine Besylate 5 MG TABLET PO (08:55)
[2021-08-27] MEDS: polyethylene glycoL 3350 17 GM POWD.PACK PO (08:55)
--- NOTE | 2021-08-27 12:14 | HO.PM.IMPN ---
Subjective Subjective Date of Service: 08/27/21 Interval History: seen and examined this morning follow up for placement no complaints this am. feeling well Review of Systems Review of Systems: Yes all other systems are reviewed and are negative Constitutional Constitutional: Denies chills and Denies fever(s) Cardiovascular Cardiovascular: Denies chest pain, Denies palpitations and Denies dyspnea Respiratory Respiratory: Denies cough and Denies dyspnea Gastrointestinal Gastrointestinal: Denies abdominal pain Endocrine Endocrine: Denies palpitations Physical Exam Vital Signs: Vital Signs: Last Vital Signs Temp 98.0 F 08/27/21 07:28 Pulse 64 08/27/21 07:28 Resp 18 08/27/21 07:28 BP 120/69 08/27/21 07:28 Pulse Ox 99 08/27/21 07:28 O2 Del Method 08/27/21 07:28 BMI result Body Mass Index 21.3 Const: General: cooperative, healthy appearing, comfortable, no acute distress, alert and awake Nutritional Appearance: average body habitus and thin Resp: Effort & Inspection: normal respiratory effort and able to speak in complete sentences Auscultation: clear to auscultation bilaterally Cardio: Rate: regular rate Heart sounds: S1 normal heart sound present and S2 normal heart sound present GI: Inspection: No distended Palpation (GI): Soft to palpation and nontender Skin: Other: multiple skin tears b/l arms Extrem: General: Yes no pedal edema Objective Data Active Medications Acetaminophen (Acetaminophen 325 Mg Tablet) 650 mg PO Q6H PRN PRN Reason: Pain, Mild (Pain Scale 1-3) Amlodipine Besylate (Amlodipine Besylate 5 Mg Tablet) 5 mg PO DAILY [facility]; Protocol Last Admin: 08/27/21 08:55 Dose: 5 mg Documented By: INES Levothyroxine Sodium (Levothyroxine Sodium 50 Mcg Tablet) 50 mcg PO DAILY@0600 [facility] Last Admin: 08/27/21 06:29 Dose: 50 mcg Documented By: JOSEPH Ondansetron HCl (Ondansetron Hcl 4 Mg/2 Ml Vial) 4 mg IVPUSH Q8H PRN PRN Reason: Nausea and Vomiting Pharmacy Consult (Consult Rx Perform Med Rec) 1 each MISCELLANE ONCE PRN PRN Reason: Consult order Polyethylene Glycol (Polyethylene Glycol 3350 17 Gm Powd.Pack) 17 gm PO DAILY [facility] Last Admin: 08/27/21 08:55 Dose: 17 gm Documented By: INES Psyllium Hydrophilic Mucilloid (Psyllium Seed 3.4 Gm Powd.Pack) 3.4 gm PO DAILY [facility] Last Admin: 08/27/21 08:55 Dose: Not Given Documented By: INES Non-Admin Reason: n/a Labs CBC & Chem 7: 07/20/21 05:22 08/25/21 05:16 Assessment and Plan (1) Dementia with behavioral disturbance: Status: Acute Plan 75 year old female with history of HLD, HTN, hypothyroidism, dementia who was brought to the ED by EMS 06/17 after being found wandering on the street. She was seen by psych and deemed not to have capacity to make medical decisions and was admitted to the hospital on 06/29 with plans to pursue guardianship Dementia no behavioral issues at this time does not have capacity to make medical decisions pending Placement Constipation Continue bowel regimen HTN BP is stable continue Norvasc hypothyroidism Continue synthroid 50 mcg, TSH 2.42 Small Stage II pressure ulcer of right buttock continue local wound care, continue protein supplements and frequent repositioning dvt ppx - ambulation code status - full code Attending-Dr. Thompson ?guardianship acquired, requires ongoing hospitalization pending placement for safe disposition. Pt has bed offer at [facility] for Sunday for LTC Quality Stroke Does the patient have a stroke diagnosis?: No VTE Prior VTE?: No VTE Risk Level:: Medical - low VTE Device Contraindication: Treatment Not Indicated VTE Drug Contraindication: Treatment Not Indicated
[2021-08-27 15:27] VITALS: BP 119/61; PULSE 77; RESP 18; TEMP 36.9; O2SAT 98
[2021-08-27 23:04] VITALS: BP 100/55; PULSE 86; RESP 16; TEMP 36.2; O2SAT 96
[2021-08-28] MEDS: Levothyroxine Sodium 50 MCG TABLET PO (06:30)
[2021-08-28 07:24] VITALS: BP 132/69; PULSE 60; RESP 12; TEMP 36.4; O2SAT 100
[2021-08-28] MEDS: amLODIPine Besylate 5 MG TABLET PO (08:37)
[2021-08-28] MEDS: polyethylene glycoL 3350 17 GM POWD.PACK PO (08:37)
[2021-08-28 12:00] VITALS: BP 106/66; PULSE 64; RESP 12; TEMP 36.7; O2SAT 99
[2021-08-28 15:51] VITALS: BP 120/57; PULSE 66; RESP 15; TEMP 36.8; O2SAT 99
--- NOTE | 2021-08-28 16:24 | HO.PM.IMPN ---
Subjective Subjective Date of Service: 08/28/21 Interval History: seen and examined this morning follow up -awaiting placement No overnight events, no specific complaints this morning Review of Systems Review of Systems: Yes all other systems are reviewed and are negative Constitutional Constitutional: Denies chills and Denies fever(s) Cardiovascular Cardiovascular: Denies chest pain Gastrointestinal Gastrointestinal: Denies abdominal pain Physical Exam Vital Signs: Vital Signs: Last Vital Signs Temp 98.2 F 08/28/21 15:51 Pulse 66 08/28/21 15:51 Resp 15 08/28/21 15:51 BP 120/57 L 08/28/21 15:51 Pulse Ox 99 08/28/21 15:51 O2 Del Method 08/28/21 15:51 BMI result Body Mass Index 21.3 Const: General: cooperative, healthy appearing, comfortable, no acute distress, alert and awake Nutritional Appearance: average body habitus and thin Resp: Effort & Inspection: normal respiratory effort and able to speak in complete sentences Auscultation: clear to auscultation bilaterally Cardio: Rate: regular rate Heart sounds: S1 normal heart sound present and S2 normal heart sound present GI: Inspection: No distended Palpation (GI): Soft to palpation and nontender Extrem: General: Yes no pedal edema Objective Data Active Medications Acetaminophen (Acetaminophen 325 Mg Tablet) 650 mg PO Q6H PRN PRN Reason: Pain, Mild (Pain Scale 1-3) Amlodipine Besylate (Amlodipine Besylate 5 Mg Tablet) 5 mg PO DAILY [facility]; Protocol Last Admin: 08/28/21 08:37 Dose: 5 mg Documented By: INES Levothyroxine Sodium (Levothyroxine Sodium 50 Mcg Tablet) 50 mcg PO DAILY@0600 [facility] Last Admin: 08/28/21 06:30 Dose: 50 mcg Documented By: ABIOLA Ondansetron HCl (Ondansetron Hcl 4 Mg/2 Ml Vial) 4 mg IVPUSH Q8H PRN PRN Reason: Nausea and Vomiting Pharmacy Consult (Consult Rx Perform Med Rec) 1 each MISCELLANE ONCE PRN PRN Reason: Consult order Polyethylene Glycol (Polyethylene Glycol 3350 17 Gm Powd.Pack) 17 gm PO DAILY [facility] Last Admin: 08/28/21 08:37 Dose: 17 gm Documented By: INES Psyllium Hydrophilic Mucilloid (Psyllium Seed 3.4 Gm Powd.Pack) 3.4 gm PO DAILY [facility] Last Admin: 08/28/21 08:37 Dose: Not Given Documented By: INES Non-Admin Reason: n/a Labs CBC & Chem 7: 07/20/21 05:22 08/25/21 05:16 Assessment and Plan (1) Dementia with behavioral disturbance: Status: Acute Plan 75 year old female with history of HLD, HTN, hypothyroidism, dementia who was brought to the ED by EMS 06/17 after being found wandering on the street. She was seen by psych and deemed not to have capacity to make medical decisions and was admitted to the hospital on 06/29 with plans to pursue guardianship Dementia no behavioral issues at this time does not have capacity to make medical decisions pending Placement Constipation Continue bowel regimen HTN BP is stable continue Norvasc hypothyroidism Continue synthroid 50 mcg, TSH 2.42 Small Stage II pressure ulcer of right buttock - resolved. now with intact skin continue protein supplements and frequent repositioning dvt ppx - ambulation code status - full code Attending-Dr. Thompson guardianship acquired, requires ongoing hospitalization pending placement for safe disposition. Pt has bed offer at [facility] for Sunday for LTC Quality Stroke Does the patient have a stroke diagnosis?: No VTE Prior VTE?: No VTE Risk Level:: Medical - low VTE Device Contraindication: Treatment Not Indicated VTE Drug Contraindication: Treatment Not Indicated
[2021-08-28 19:15] VITALS: BP 121/69; PULSE 75; RESP 18; TEMP 36.4; O2SAT 97
[2021-08-28 23:19] VITALS: BP 116/65; PULSE 62; RESP 16; TEMP 36; O2SAT 96
[2021-08-29] MEDS: Levothyroxine Sodium 50 MCG TABLET PO (06:26)
[2021-08-29 07:47] VITALS: BP 132/64; PULSE 59; RESP 15; TEMP 36.7; O2SAT 100
--- NOTE | 2021-08-29 08:47 | MHC.CM.PN ---
PT TO BE DISCHARGED TODAY AT 11AM TO [facility] FOR STR/LTC PENDING RAPID COVID RESULTS AND ACTION FOR BLS TRANSPORT. HOSPITALIST, NSG AND UNIT AWARE. CM CONTACTED PT'S GUARDIAN WHO HAD PREVIOUSLY GIVEN CONSENT VIA PHONE TO CONFIRM D/C TODAY AT 11AM AND SHIVAM HAS FAXED IMM TO [facility] AT [phone] PER HER REQUEST.
--- NOTE | 2021-08-29 09:29 | P.DS_ITS ---
DS: Providers Provider Date of Service: 08/29/21 Date of admission: 06/29/21 17:15 Primary care physician: Caesar Mo MD Consults: 06/20/21 16:00 Consult to Psychiatry Stat Consulting Provider: Psych Covering Reason for consultation: eval for capacity 06/29/21 22:54 Consult to Wound Care Routine Consulting Provider: Nadja Diaz Reason for consultation: pressure injury to buttock Attending physician on discharge: Jose Thompson Discharging clinician: Keyanna Addison DS: Diagnosis Discharge Diagnosis (1) Dementia with behavioral disturbance: Status: Acute DS: Summary Hospital Course Hospital Course: 75 year old female with history of HLD, HTN, hypothyroidism, dementia who was brought to the ED by EMS 06/17 after being found wandering on the street. She was seen by psych and deemed not to have capacity to make medical decisions and was admitted to the hospital on 06/29 with plans to pursue guardianship Dementia no behavioral issues during her admission She continued to not have capacity to make medical decisions Constipation Continue bowel regimen HTN BP has remained stable continue Norvasc hypothyroidism Continue synthroid 50 mcg Small Stage II pressure ulcer of right buttock - resolved. now with intact skin continue protein supplements and frequent repositioning Time Spent with Patient Time attestation: Total time spent providing and/or coordinating discharge services: Discharge coordination time: Greater than 30 minutes Quality: Safe Use of Opioids Does Pt have an Active Cancer Diagnosis on the Problem List?: No Quality: Stroke Does the patient have a stroke diagnosis?: No Physical Exam Vital Signs: Vital Signs: Last Vital Signs Temp 98.1 F 08/29/21 07:47 Pulse 59 08/29/21 07:47 Resp 15 08/29/21 07:47 BP 132/64 08/29/21 07:47 Pulse Ox 100 08/29/21 07:47 O2 Del Method 08/29/21 07:47 BMI result Body Mass Index 21.3 Appearing in no acute distress head is normocephalic atraumatic eyes pupils are PERRLA sclera is anicteric mouth throat mucous membranes are intact and moist neck is supple no lymphadenopathy, no JVD noted lung sounds are clear to auscultation heart regular rate rhythm, clear S1, S2 positive bowel sounds, abdomen is soft, nontender neuro patient is alert Discharge Plan Discharge Anticipated Discharge Date/Time: 08/29/21 09:27 Patient Disposition: Xfer LTC Discharge Diagnosis: Dementia Referrals: [facility] [Outside] - 1 Day ([facility]) Caesar Mo MD [Primary Care Provider] - 1 Week Discharge Medications: New polyethylene glycol 3350 17 gram Powder In Packet 17 g PO DAILY Qty: 30 0RF amlodipine 5 mg Tablet 5 mg PO DAILY Qty: 30 0RF Protocol: Hold for SBP< HOLD for SBP < : 90 levothyroxine 50 mcg Tablet 50 mcg PO DAILY@0600 Qty: 30 0RF Metamucil Fiber Singles 3.4 gram Powder In Packet 3.4 g PO DAILY Qty: 30 0RF Discharge Orders: Discharge Order (Routine); Ordered 08/29/21 Ordered By: Keyanna Addison Diet: Advance to usual diet Activity on Discharge: As tolerated Stand Alone Forms: Patient Portal Discharge page Care Plan Goals: Take all medications as prescribed Health Concerns: Dementia Plan of Treatment: Follow up with primary care provider as needed Assessment: See discharge summary
[2021-08-29] MEDS: amLODIPine Besylate 5 MG TABLET PO (09:52)
[2021-08-29] MEDS: polyethylene glycoL 3350 17 GM POWD.PACK PO (09:52)
[2021-08-29 10:23] LABS: COVID-19 Test Negative (Negative); IDNOW Serial# 16C4AD1C
--- NOTE | 2021-08-29 11:06 | PC.NURSE ---
Addendum entered by Elena Marcum RN 08/29/21 11:25: Called Chloe Manzano for the second time.[employer] answered sent me to first extension no answer, second extension had to leave message. Ask them to call the floor. Original Note: Attempted to call Chloe Manzano to give report to nurse on Lalita. [employer] tried both extensions and neither on picked up. Will try later.
== END 2021-08-29 11:00 | DRG 690 ==
LOC: HO.ED 06-28 21:54 → HO.EDOVER 06-29 17:33 → HO.S3 06-29 19:30
PROVIDERS: Hospitalist; Internal Medicine; Physician Assistant; Physician Assistant Medical; Student in an Organized Health Care Education/Training Program; Admitting Provider Hospitalist; Emergency Provider Emergency Medicine Emergency Medical Services; PCP Internal Medicine; Visit Provider Nurse Practitioner Acute Care
DX: N39.0 Urinary tract infection, site not specified (principal); F03.91 Unspecified dementia, unspecified severity, with behavioral disturbance; E16.2 Hypoglycemia, unspecified; E78.5 Hyperlipidemia, unspecified; L89.312 Pressure ulcer of right buttock, stage 2; K59.00 Constipation, unspecified; E03.9 Hypothyroidism, unspecified; I10 Essential (primary) hypertension; Z20.822 Contact with and (suspected) exposure to COVID-19; Z75.1 Person awaiting admission to adequate facility elsewhere; Z91.83 Wandering in diseases classified elsewhere; Z79.890 Hormone replacement therapy; Z79.899 Other long term (current) drug therapy
CPT/HCPCS: 36415; 80048; 80053; 81001; 82140; 82550; 82947; 83605; 84443; 85025; 85027; 85610; 85730; 87040; 87086; 87088; 87186; 87635; 96365; 96366; 96367; 96372; 96375; 97162; 99285; J0696; Q0163